=== PATIENT | female | born 1940 | race Caucasian/White ===

== ENCOUNTER 2025-01-24 01:53 | Inpatient (IN) | payer MEDICARE, MEDICAID, SELFPAY ==
[2025-01-24] VITALS (15 sets, daily range): BP systolic 89–156; BP diastolic 65–99; PULSE 60–185; RESP 16–96; TEMP 36.6–37; O2SAT 93–99; BMI 28.3
--- NOTE | 2025-01-24 01:59 | EKG_ITS ---
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
--- NOTE | 2025-01-24 02:19 | PD.EDCHEST ---
ED Chest Pain RME/HPI General Chief Complaint: Chest Pain Stated Complaint: CHEST PAIN Time Seen by Provider: 01/24/25 02:15 Arrival date/time: 01/24/25 01:53 RME / HPI RME / HPI narrative: This section includes all my notes and documentations, including HPI, PE, and ED course. Anmol Luis MD HPI: 84 y/o female with Hx of Recreational drug use, Hypercholesterolemia, Atrial Fibrillation, and Hypertension presents with several hours of chest pain and palpitations. Denies fever. No other complaints. ROS: All negative except as documented in HPI. Physical Exam: General: Alert and oriented. Appearance of malaise noted. Eyes: Conjunctivae and lids clear. ENT: No nasal congestion. Neck: Supple. Heart: Tachycardia noted (~200 bpm). Lungs: No respiratory distress. Mildly decreased air movement with rales. Abdomen: Soft and nontender. Normal bowel sounds. No distension. No rebound or guarding. Back: No CVA tenderness. Skin: Warm and dry. Neuro: Alert and oriented X 3. I reviewed all diagnostic test results: My interpretation of the EKG: SVT (184 bpm). My interpretation of the chest x-ray is infiltrates. Blood tests and urine tests remarkable for Cr 1.4, lactic acid 2.3, and BNP 231. Influenza: Negative. COVID: Negative. At this point, diagnoses include: SVT, PNA, Elevated lactic acid, and DIANA. With adenosine 6 mg, SVT converted to sinus rhythm. She also received metoprolol 25 mg and Rocephin and Zithromax. She felt much better. I discussed the case with our hospitalist.? About the presentation and exam and diagnostics and treatments here.? And need of further care in the hospital.? Will accept the patient. Anmol Luis MD Related Data Home Medications ?Medication ?Instructions ?Recorded ?Confirmed lisinopril 40 mg tablet 40 mg PO QDAY HBP #0 tabs 09/08/14 12/31/21 lovastatin 40 mg tablet 40 mg PO HS CHOLESTEROL #0 tabs 09/08/14 12/31/21 Previous Rx's ?Medication ?Instructions ?Recorded tobramycin 0.3 % eye drops 1 drp ophthalmic (eye) Q4H #5 mL 03/01/21 benzonatate 100 mg capsule 100 mg PO TID PRN cough #30 caps 04/24/21 (Ryanne Marshall) amlodipine 5 mg tablet 5 mg PO QDAY #30 tabs 01/01/22 Allergies Allergy/AdvReac Type Severity Reaction Status Date / Time No Known Allergies Allergy Verified 02/15/23 15:23 Review of Systems Review of Systems Systems Reviewed: All systems reviewed, normal except as documented Past Medical History Past Medical History NEUROLOGIC: Positive Neurological Disorders and Cerebrovascular Accident (10 yrs ago) CARDIAC: Positive Cardiac Disorders, Atrial Fibrillation, Hypercholesterolemia and Hypertension PSYCHO/SOCIAL: Positive Recreational Drug Use and Depression Family History FAMILY HISTORY: Positive Family Cardiac Disorders Surgical History SURGICAL: Positive Eye Surgery (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) ED Exam Narrative Physical exam: Refer to HPI Course Quality Measures none Orders Category Date Time Status Bedside Influenza A&B Antigen Test NOW Care 01/24/25 02:22 Completed COVID-19 Screening Questionnaire NOW Care 01/24/25 04:38 Active Decision to Admit X1 Care 01/24/25 04:38 Completed EKG (ED ONLY) *Do not use* NOW Care 01/24/25 01:59 Completed Ashby [Urinary Catheter] QS Care 01/24/25 02:43 Active Insert IV NOW Care 01/24/25 02:18 Active EKG (ED Only) Stat Exams 01/24/25 01:59 Draft XR chest 1V portable Stat Exams 01/24/25 02:22 Completed ABG [Arterial Blood Gas] Stat Lab 01/24/25 04:51 Completed Alcohol, Blood Medical Stat Lab 01/24/25 02:25 Completed BNP [B-Type Natriuretic Peptide] Stat Lab 01/24/25 02:25 Completed Beta Hydroxybutyrate Stat Lab 01/24/25 02:25 Completed Bilirubin,Direct Stat Lab 01/24/25 02:25 Completed Blood Culture (Lab) Stat Lab 01/24/25 02:25 Received CBC Stat Lab 01/24/25 02:25 Completed CMP [Comprehensive Metabolic Panel] Stat Lab 01/24/25 02:25 Completed COVID-19 Antigen (In-House) Stat Lab 01/24/25 02:48 Completed CRP [C-Reactive Protein] Stat Lab 01/24/25 02:25 Completed D-Dimer Stat Lab 01/24/25 02:25 Completed Drug Screen,Urine Stat Lab 01/24/25 03:00 Completed ESR [Sed Rate (ESR)] Stat Lab 01/24/25 02:25 Completed Free T4 (Free Thyroxine) Stat Lab 01/24/25 02:25 Completed Lactate (Lactic Acid) Stat Lab 01/24/25 02:25 Completed Magnesium Stat Lab 01/24/25 02:25 Completed PT [Prothrombin Time with INR] Stat Lab 01/24/25 02:25 Completed PTT [Partial Thromboplastin Time] Stat Lab 01/24/25 02:25 Completed Procalcitonin Stat Lab 01/24/25 02:25 Completed TSH [Thyroid Stimulating Hormone] Stat Lab 01/24/25 02:25 Completed Troponin I Stat Lab 01/24/25 02:25 Completed UA, C/S IF [Urinalysis, C/S if Indicated] Stat Lab 01/24/25 03:00 Completed Adenosine 6mg Inj [Adenocard Inj] Med 01/24/25 02:17 Discontinued 12 mg IVP X1 ONE Adenosine 6mg Inj [Adenocard Inj] Med 01/24/25 02:09 Discontinued 18 mg .ROUTE .STK-MED ONE Adenosine 6mg Inj [Adenocard Inj] Med 01/24/25 02:16 Discontinued 6 mg IVP X1 ONE Azithromycin Inj [Zithromax Inj] 500 mg Med 01/24/25 04:18 Discontinued Sodium Chloride 0.9% 250 ml [Ns] 250 ml IV X1 Metoprolol Tartrate [Lopressor] Med 01/24/25 03:11 Discontinued 25 mg PO X1 ONE Sodium Chloride 0.9% 1000 ml [Ns] 1,000 ml Med 01/24/25 02:19 Discontinued IV 999 mls/hr cefTRIAXone [Rocephin] Med 01/24/25 04:27 Discontinued 1,000 mg .ROUTE .STK-MED ONE cefTRIAXone/D5w 1gm IV premix [Rocephin/D5w 1gm IV Med 01/24/25 04:18 Discontinued premix] 1 g in 50 ml IV X1 Vital Signs Vital signs: Vital Signs Temperature 98.6 F 01/24/25 02:15 Pulse Rate 185 H 01/24/25 02:15 Respiratory Rate 19 01/24/25 02:15 Blood Pressure 89/65 L 01/24/25 02:15 Pulse Oximetry (%) 95 01/24/25 02:15 Oxygen Delivery Method Room Air 01/24/25 02:15 Chest Pain MDM Narrative MDM Narrative:: Scribe Attestation: I, Paty Baltazar, am scribing for and in the presence of Dr. Luis. Provider Notation: Although this document has been carefully reviewed, there may still be some phonetic and other typographical errors.? These errors are purely grammatical due to imperfections in the software program and should not be construed in any way to? compromise the substance of the patient's medical care during this visit. 84 y/o female with Hx of Recreational drug use, Hypercholesterolemia and Hypertension presents with several hours of chest pain and palpitations. Denies fever. No other complaints. Patient data External records reviewed:: [facility] previous records (Reviewed prior ED records from 06/16/23. [place] Atrial [place].) Clinical information provided by:: patient Social determinants that could affect healthcare access:: substance use Patient has the following chronic illnesses:: Cerebrovascular Accident, Hypercholesterolemia, Hypertension, Recreational Drug Use and Depression How is presenting disease/condition affected by chronic disease/condition?: exacerbated by Evaluation data The following diagnostics were reviewed and interpreted by me:: EKG tracing(s) (My interpretation of the EKG: SVT (184 bpm) with no ST-T changes. Anmol Luis MD) Lab and/or radiology exams considered but not ordered:: None Interpretation Summary: I reviewed all diagnostic test results: My interpretation of the EKG: SVT (184 bpm). My interpretation of the chest x-ray is infiltrates. Blood tests and urine tests remarkable for Cr 1.4, lactic acid 2.3, and BNP 231. Influenza: Negative. COVID: Negative. Medications / Prescriptions Medications or Prescriptions considered but not ordered:: None Medication administrations:: Medication Administration History Hydrocodone Bitart/Acetaminophen (Hydrocodone/Apap 5/325 Tablet) 1 tab PO Q4HR PRN PRN Reason: PAIN SCALE 4-6 (Moderate Stop: 01/29/25 04:49 Last Admin: 01/24/25 08:04 Dose: 1 tab Documented By: VL Albuterol/Ipratropium (Albuterol/Ipratropium (Duoneb) Rt Mariely 3 Ml Nebu) 3 ml INH Q6HRRT PRN PRN Reason: SOB or wheezing Stop: 02/23/25 06:59 Aspirin (Aspirin Ec 81 Mg Tabec) 81 mg PO QDAY [facility] Stop: 02/23/25 11:44 Last Admin: 01/24/25 13:50 Dose: 81 mg Documented By: MARGOT(2) Atorvastatin Calcium (Atorvastatin Calcium 20 Mg Tablet) 40 mg PO HS [facility] Stop: 02/23/25 20:59 Heparin Sodium (Porcine) (Heparin Sod Inj 5000 Unit/Ml Vial) 5,000 unit SC Q8HR [facility] Stop: 02/07/25 05:59 Last Admin: 01/24/25 13:50 Dose: 5,000 unit Documented By: VL(2) Co-signed By: MARIAELENA Admin: 01/24/25 06:04 Dose: 5,000 unit Documented By: JAVI Co-signed By: MARY Sodium Chloride (Ns) 1,000 mls @ 85 mls/hr IV .[id number] [facility] Stop: 02/23/25 04:59 Last Admin: 01/24/25 18:19 Dose: 85 mls/hr Documented By: MARGOT(2) Infusion: 01/24/25 17:45 Dose: Infused Documented By: VL(2) Admin: 01/24/25 05:59 Dose: 85 mls/hr Documented By: JAVI Ceftriaxone Sodium/Dextrose (Rocephin/D5w 1gm Iv Premix) 1 gm in 50 mls @ 100 mls/hr IV QDAY [facility] Stop: 02/01/25 08:59 Metoprolol Succinate (Metoprolol Succinate Xl 25 Mg Tabcr) 12.5 mg PO QDAY [facility] Stop: 02/23/25 11:29 Last Admin: 01/24/25 13:51 Dose: 12.5 mg Documented By: MARGOT(2) Ondansetron HCl (Ondansetron Inj 2 Mg/Ml Inj 2 Ml) 4 mg IVP Q6H PRN; Protocol PRN Reason: NAUSEA OR VOMITING Stop: 02/23/25 04:49 Pantoprazole Sodium (Pantoprazole 40 Mg Tablet) 40 mg PO QDAY [facility] Stop: 02/24/25 08:59 Discontinued Medications Adenosine (Adenosine Inj 3 Mg/Ml Vial) 6 mg IVP X1 ONE Stop: 01/24/25 02:17 Last Admin: 01/24/25 02:26 Dose: 6 mg Documented By: MARY Adenosine (Adenosine Inj 3 Mg/Ml Vial) 12 mg IVP X1 ONE Stop: 01/24/25 02:18 Last Admin: 01/24/25 03:17 Dose: Not Given Documented By: BD Non-Admin Reason: Cancelled by Provider Adenosine (Adenosine Inj 3 Mg/Ml Vial) Confirm Administered Dose 18 mg .ROUTE .STK-MED ONE Stop: 01/24/25 02:10 Last Admin: 01/24/25 02:21 Dose: Not Given Documented By: AC Non-Admin Reason: Override Medication Atorvastatin Calcium (Atorvastatin Calcium 20 Mg Tablet) 40 mg PO X1 ONE Stop: 01/24/25 11:35 Last Admin: 01/24/25 13:50 Dose: 40 mg Documented By: VL(2) Azithromycin (Azithromycin 250 Mg Tablet) 500 mg PO QDAY [facility] Stop: 02/01/25 08:59 Ceftriaxone Sodium (Ceftriaxone Sod Inj 1,000 Mg Vial) Confirm Administered Dose 1,000 mg .ROUTE .STK-MED ONE Stop: 01/24/25 04:28 Last Admin: 01/24/25 04:40 Dose: 1,000 mg Documented By: BD Sodium Chloride (Ns) 1,000 mls @ 999 mls/hr IV .Q1H1M ONE Stop: 01/24/25 03:19 Last Infusion: 01/24/25 03:53 Dose: Infused Documented By: Admin: 01/24/25 02:26 Dose: 999 mls/hr Documented By: MARY Azithromycin 500 mg/ Sodium (Chloride) 250 mls @ 250 mls/hr IV X1 ONE Stop: 01/24/25 05:17 Last Infusion: 01/24/25 05:57 Dose: Infused Documented By: Admin: 01/24/25 04:44 Dose: 250 mls/hr Documented By: BD Ceftriaxone Sodium/Dextrose (Rocephin/D5w 1gm Iv Premix) 1 g in 50 mls @ 100 mls/hr IV X1 ONE Stop: 01/24/25 04:47 Last Admin: 01/24/25 04:45 Dose: Not Given Documented By: BD Non-Admin Reason: Other, see note Magnesium Sulfate (Magnesium Sulfate Ivpb) 4 gm in 50 mls @ 12.5 mls/hr IV X1 ONE Stop: 01/24/25 11:51 Last Admin: 01/24/25 08:19 Dose: 12.5 mls/hr Documented By: VL Metoprolol Tartrate (Metoprolol Tartrate 25 Mg Tablet) 25 mg PO X1 ONE Stop: 01/24/25 03:12 Last Admin: 01/24/25 03:21 Dose: 25 mg Documented By: JAVI Potassium Chloride (Potassium Chloride 20 Meq Tabcr) 40 meq PO X1 ONE Stop: 01/24/25 07:53 Last Admin: 01/24/25 08:19 Dose: 40 meq Documented By: MARGOT Sodium Chloride (Sodium Chloride Rt 10% 15 Ml Nebu) 5 ml INH X1 ONE Stop: 01/24/25 04:51 Last Admin: 01/24/25 13:31 Dose: Not Given Documented By: MARGOT(2) Non-Admin Reason: Not scanned/given in ED With adenosine 6 mg, SVT converted to sinus rhythm. She also received metoprolol 25 mg and Rocephin and Zithromax. Consultations Consultation(s) initiated? (list below): Yes Consultation #1 (Physician, Specialty, Details): I discussed the case with our hospitalist.? About the presentation and exam and diagnostics and treatments here.? And need of further care in the hospital.? Will accept the patient. Diagnosis Chest Pain Differential Diagnosis: stable angina, unstable angina pectoris, atypical chest pain, st elevation myocardial infarction, costochondritis, chest pain, biliary colic and other (SVT, IN) Most likely diagnosis given after review of the tests above:: PNA, SVT, Elevated lactic acid, and DIANA. Admission Indicated Admission indicated?: indicated Explain why admission is indicated or not indicated:: PNA, SVT Admission Request Was there a request for admission?: Yes Admission Attestation Admission request attestation: Discussed case with Hospitalist service regarding admission. Discussed patients ED course, exam findings, labs, and radiology results. The Hospitalist [agrees] to accept the patient for admission. Disposition Plan Disposition Plan: Admit Critical Care Time Critical Care Time Critical Care Time: Yes Total Critical Care Time (min.): 36 Attestation: Due to a high probability of clinically significant, life threatening deterioration, the patient required my highest level of preparedness to intervene emergently and I personally spent this critical care time directly and personally managing the patient. This critical care time included obtaining a history; examining the patient; ordering and review of studies; arranging urgent treatment with development of a management plan; evaluation of patient's response to treatment; frequent reassessment; and discussions with family and other providers. It was exclusive of separately billable procedures and treating other patients and teaching time. Anmol Luis MD Discharge Plan Plan Patient Disposition: Admit Acute Care w/in Hospital Problem List Clinical Impression: SVT (supraventricular tachycardia), Pneumonia, Elevated lactic acid level, DIANA (acute kidney injury)
--- NOTE | 2025-01-24 02:22 | XR_ITS ---
Examination: AP chest single view TECHNIQUE: AP portable semiupright chest single view Date and time: January 24, 2025, 0259 hours Comparison April 23, 2021 INDICATIONS: Shortness of breath chest pain beginning today. FINDINGS: Nodule in the right upper lobe again noted Normal heart size. No unremarkable pneumonia or pulmonary edema IMPRESSION: No interval pneumonia or pulmonary edema
[2025-01-24] MEDS: ADENOSINE INJ 3 MG/ML VIAL 6 MG IVP (02:26)
[2025-01-24] MEDS: SODIUM CHLORIDE 0.9% 1000 ML 1,000 ML 999 ML IV (02:26)
[2025-01-24 02:56] LABS: Lactate (Lactic Acid) 2.3 mMol/L (0.4-2.0)
[2025-01-24 03:15] LABS: Basophils % (Auto) 0 % (0-2.5); Eosinophils # (Auto) 0.2 Thou/mm3 (0.0-0.5); Eosinophils % (Auto) 1 % (0-10); Hematocrit 36.6 % (36.0-46.0); Hemoglobin 12.7 g/dL (12.0-16.0); Immature Granulocytes % (Auto) 0 % (0-0); Immature Granulocytes Auto 0.05 Thou/mm3 (0.00-0.00); Lymphocytes # (Auto) 4.6 Thou/mm3 (1.0-4.8); Lymphocytes % (Auto) 30 % (10-50); Mean Corpuscular HGB Conc 34.7 g/dl (31.0-37.0); Mean Corpuscular Hemoglobin 29.3 pg (25.0-35.0); Mean Corpuscular Volume 84 fL (80-100); Monocytes % (Auto) 7 % (0-12); Neutrophils # (Auto) 9.3 Thou/mm3 (1.8-7.7); Neutrophils % (Auto) 61 % (37-80); Nucleated Red Blood Cell % 0 /100 WBC (0); Platelet Count 203 Thou/mm3 (140-440); RDW Standard Deviation 46.1 fL (36.4-46.3); Red Blood Count 4.34 Miln/mm3 (4.00-5.20); White Blood Count 15.2 Thou/mm3 (3.6-11.0)
[2025-01-24] MEDS: METOPROLOL TARTRATE 25 MG TABLET PO (03:21)
[2025-01-24 03:22] LABS: INR 1.1 (0.9-1.3); Partial Thromboplastin Time 27.9 Seconds (22.0-36.0); Prothrombin Time 11.6 Seconds (9.0-12.2)
[2025-01-24 03:24] LABS: B-Type Natriuretic Peptide 231 pg/mL (0-100)
[2025-01-24 03:25] LABS: COVID-19 Antigen (In-House) Negative (Negative)
[2025-01-24 03:36] LABS: Alanine Aminotransferase 16 U/L (10-49); Albumin, Serum 4.4 gm/dL (3.4-4.8); Albumin/Globulin Ratio 1.9 (1.2-2.2); Alcohol, Blood Medical < 3.0 mg/dL (0-10.0); Alkaline Phosphatase 114 U/L (46-116); Anion Gap 13 (7-16); Aspartate Amino Transferase 17 U/L (0-34); BUN/Creatinine Ratio 13 Ratio (12-20); Bilirubin,Direct 0.2 mg/dL (0.0-0.3); Bilirubin,Total 0.7 mg/dL (0.3-1.2); Blood Urea Nitrogen 18 mg/dL (9-23); C-Reactive Protein 2.7 mg/dL (0.0-0.9); Calcium 9.1 mg/dL (8.3-10.6); Calcium (Corrected) 9.1 mg/dL (8.5-10.1); Carbon Dioxide 20.9 mMol/L (20.0-31.0); Chloride 109 mMol/L (98-107); Creatinine (Component) 1.4 mg/dL (0.6-1.3); Estimated Creatinine Clearance 30.7 mL/min (>60); Free T4 (Free Thyroxine) 0.98 ng/dL (0.89-1.76); Globulin 2.3 gm/dL (2.3-3.5); Glucose 183 mg/dL (74-106); Magnesium 1.7 mg/dL (1.6-2.6); Osmolality,Calculated 291 (275-295); Potassium 3.7 mMol/L (3.4-5.1); Procalcitonin 0.13 ng/ml (0.0-0.49); Sed Rate (ESR) 29 mm/hr (0-30); Sodium 143 mMol/L (136-145); Thyroid Stimulating Hormone 4.63 uIU/mL (0.55-4.78); Total Protein 6.7 gm/dL (5.7-8.2); Troponin I 0.029 ng/mL (0.0-0.045); eGFR 37 See Note
[2025-01-24 03:45] LABS: Beta Hydroxybutyrate 0.5 mmol/L (<0.6)
[2025-01-24 03:56] LABS: D-Dimer 529 ng/mL (<600)
--- NOTE | 2025-01-24 04:29 | PC.NURSE ---
CALLED HOUSE SUP PATRICE GARCIA
[2025-01-24] MEDS: cefTRIAXone SOD INJ 1,000 MG VIAL 1000 MG (04:40)
[2025-01-24] MEDS: AZITHROMYCIN INJ 500 MG in SODIUM CHLORIDE 0.9% 250 ML 250 ML 250 MG IV (04:44)
--- NOTE | 2025-01-24 04:46 | PC.NURSE ---
PREMIX BAG ROCEPHIN NOT AVAILABLE HOUSE SUP GAVE VIAL ROCEPHIN TO MIX AND ADMIN VIA IV
--- NOTE | 2025-01-24 04:50 | EKG_ITS ---
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
--- NOTE | 2025-01-24 04:56 | ESHP_ITS ---
<Statement entered by Brown Meyer MD - 01/24/25 07:08> I Brown Meyer MD reviewed the note and agree with the resident's assessment & plan with exceptions as below. I have personally reviewed labs, imaging, home meds/prior records, examined the patient, formulated and discussed management plan with the IM team. An 84-year-old female with history of HTN presented to ED with palpitations and intermittent chest pain was found to have HR in 180s on presentation. EKG consistent with SVT s/p adenosine with conversion back to normal sinus rhythm. Will start on low-dose beta-blockers metoprolol 25 mg twice daily, obtain echocardiogram, and optimize management of community-acquired pneumonia. Patient also noted to have lactic acidosis with elevated inflammatory markers along with CXR consistent with infiltrates possibly due to community-acquired pneumonia. Will treat empirically with Rocephin and azithromycin. Also noted to have DIANA we will provide gentle IVF resuscitation. Documentation for date of: 01/24/25 HPI History of Present Illness Chief complaint: chest pain and palpitation History of present illness: 84-year-old female with past medical history of hyperlipidemia hypertension was admitted to the hospital on 01/24/2025 after coming to the ED with complaints of chest pain and palpitations. On assessment patient stated that she had chest pain and palpitations that started on the day prior to admission around 5 PM and she decided to come to the the ED. In the ED patient got adenosine 6 mg x 1 and then adenosine 12 mg x 1 due to having SVT and patient converted to sinus rhythm afterwards. Patient mentions she does not have any history of heart failure or prior episodes of AK or any arrhythmias. Patient stated that she has not had any chills, fevers, burning sensation urination, nausea, vomiting, or abdominal pain recently and she has not been within any sick contacts. She did mention that she has a cough, but otherwise no other complaints at this time. Patient stated that she feels well now. Chest x-ray showed pneumonia and patient does have a WBC count as well as a UTI with lactic acidosis and elevated CRP. ED course: Initially came in hypotensive and tachycardic, but afebrile. Initial labs were relevant for leukocytosis, DIANA, elevated CRP and BMP, lactic acidosis. Initial imaging included chest x-ray which is pending read, but does seem like patient does have some opacifications in the right lower lobe and left lower lobe. PMH: As above Social Hx: Denies any smoking, alcohol and drugs Surgical Hx: Breast implants Allergies: NKDA Medications: Patient does not remember his medications, pending medication reconciliation. 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 Anicteric, vision grossly intact. R eye absent Ears: No ear pain, no ear discharge, Hearing grossly intact. Nose: No nasal discharge. Mouth/Throat: Dry mucous membranes, no redness, no lesions. Neck: Neck supple, non-tender, no cervical lymphadenopathy. Lungs: Clear BRIJESH upper and mildly decreased in lower lobes, No accessory muscle use. Cardio: Normal S1/S2, regular rhythm, no murmurs, no JVD Abdomen: Soft, non-tender, no palpable masses, peristalsis present, no guarding or rebound. Extremities: Symmetrical, no significant deformities, no peripheral edema , non-tender, peripheral pulses presents. Skin: No rashes, no lesions, warm to touch. Neuro: No focal neurological deficits. motor and sensory intact Psych: Cooperative, appropriate mood and effect. Results: Labs 01/24/25 05:35 01/24/25 02:25 Labs: Short CBC 01/24/25 Range/Units 02:25 WBC 15.2 H (3.6-11.0) Thou/mm3 Hgb 12.7 (12.0-16.0) g/dL Hct 36.6 (36.0-46.0) % Plt Count 203 (140-440) Thou/mm3 BMP 01/24/25 02:25 Sodium 143 Potassium 3.7 Chloride 109 H Carbon Dioxide 20.9 BUN 18 Creatinine 1.4 H Glucose 183 H Calcium 9.1 Cardiac Enzymes 01/24/25 Range/Units 02:25 Troponin I 0.029 (0.0-0.045) ng/mL Liver Function 01/24/25 Range/Units 02:25 Total Bilirubin 0.7 (0.3-1.2) mg/dL Direct Bilirubin 0.2 (0.0-0.3) mg/dL AST 17 (0-34) U/L ALT 16 (10-49) U/L Alkaline Phosphatase 114 (46-116) U/L Albumin 4.4 (3.4-4.8) gm/dL Quality Measures Quality Measures none Advance care planning discussed with:: patient Medications Home Medications and Allergies Home Medications ?Medication ?Instructions ?Recorded ?Confirmed ?Type lisinopril 40 mg tablet 40 mg PO QDAY HBP #0 tabs 12/31/21 History lovastatin 40 mg tablet 40 mg PO HS CHOLESTEROL #0 t abs 09/08/14 12/31/21 History Allergies Allergy/AdvReac Type Severity Reaction Status Date / Time No Known Allergies Allergy Verified 02/15/23 15:23 Visit Medications Hydrocodone Bitart/Acetaminophen (Hydrocodone/Apap 5/325 Tablet) 1 tab PO Q4HR PRN PRN Reason: PAIN SCALE 4-6 (Moderate Stop: 01/29/25 04:49 Albuterol/Ipratropium (Albuterol/Ipratropium (Duoneb) Rt Mariely 3 Ml Nebu) 3 ml INH Q6HRRT PRN PRN Reason: SOB or wheezing Stop: 02/23/25 06:59 Azithromycin (Azithromycin 250 Mg Tablet) 500 mg PO QDAY PIERRE Stop: 02/01/25 08:59 Heparin Sodium (Porcine) (Heparin Sod Inj 5000 Unit/Ml Vial) 5,000 unit SC Q8HR PIERRE Stop: 02/07/25 05:59 Azithromycin 500 mg/ Sodium (Chloride) 250 mls @ 250 mls/hr IV X1 ONE Stop: 01/24/25 05:17 Last Admin: 01/24/25 04:44 Dose: 250 mls/hr Sodium Chloride (Ns) 1,000 mls @ 85 mls/hr IV .[id number] PIERRE Stop: 02/23/25 04:59 Ceftriaxone Sodium/Dextrose (Rocephin/D5w 1gm Iv Premix) 1 gm in 50 mls @ 100 mls/hr IV QDAY PIERRE Stop: 02/01/25 08:59 Ondansetron HCl (Ondansetron Inj 2 Mg/Ml Inj 2 Ml) 4 mg IVP Q6H PRN; Protocol PRN Reason: NAUSEA OR VOMITING Stop: 02/23/25 04:49 Discontinued Medications Adenosine (Adenosine Inj 3 Mg/Ml Vial) 6 mg IVP X1 ONE Stop: 01/24/25 02:17 Last Admin: 01/24/25 02:26 Dose: 6 mg Adenosine (Adenosine Inj 3 Mg/Ml Vial) 12 mg IVP X1 ONE Stop: 01/24/25 02:18 Last Admin: 01/24/25 03:17 Dose: Not Given Sodium Chloride (Ns) 1,000 mls @ 999 mls/hr IV .Q1H1M ONE Stop: 01/24/25 03:19 Last Infusion: 01/24/25 03:53 Dose: Infused Ceftriaxone Sodium/Dextrose (Rocephin/D5w 1gm Iv Premix) 1 g in 50 mls @ 100 mls/hr IV X1 ONE Stop: 01/24/25 04:47 Last Admin: 01/24/25 04:45 Dose: Not Given Metoprolol Tartrate (Metoprolol Tartrate 25 Mg Tablet) 25 mg PO X1 ONE Stop: 01/24/25 03:12 Last Admin: 01/24/25 03:21 Dose: 25 mg Sodium Chloride (Sodium Chloride Rt 10% 15 Ml Nebu) 5 ml INH X1 ONE Stop: 01/24/25 04:51 Assessment & Plan Plan 84-year-old female with past medical history of hyperlipidemia hypertension was admitted to the hospital on 01/24/2025 for SVT, DIANA, and possible community- acquired pneumonia. #SVT Patient came in due to complaints of chest pain and palpitations Was found to have SVT on EKG when arrived to the ED Patient was given adenosine 6 mg x 1 and adenosine 12 mg x 1 and converted back to sinus rhythm. Plan: Ordered repeat troponins Ordered repeat EKG Order echo Consider cardiology consult if patient develops SVT again #Community-acquired pneumonia? Patient has been having a cough and was found to have WBC elevation on x-ray there seems to be some opacifications even though we are pending official read. CRP 2.7 Plan: Azithromycin and Rocephin Sputum cultures and blood cultures ordered O2 as needed #DIANA #Lactic acidosis Patient came to creatinine of 1.4 and baseline is around 1 Lactic acid was 2.3 on arrival Plan: IV fluids Avoid nephrotoxic agents Renally dose medications Trend lactic acid Disposition: Patient admitted to telemetry for SVT and DIANA Diet: NPO GI prophylaxis: not indicated DVT prophylaxis: heparin subcu Code: Full Case disclosed with Attending Dr. Mitch Meeks PGY1 Disclaimer: Even though this this note was dictated by speech recognition and even though it was carefully revised there may still be minor errors in tenter due to voice recognition software.
[2025-01-24 05:01] LABS: Base Excess -2 (-3-3); HCO3 22 mEq/L (20-26); Inspired Oxygen, FIO2 21 %; O2 Saturation 95 % (91-98); PCO2 36 mmHg (32.0-48.0); PO2 68 mmHg (83-108)
[2025-01-24 05:02] LABS: Allen Test Performed/OK; Puncture Site Right Radial
[2025-01-24 05:32] LABS: Collection Type, Urine Clean Catch
[2025-01-24 05:36] LABS: Bilirubin,Urine Negative (Negative); Blood,Urine Negative (Negative); Clarity,Urine Clear (Clear/Hazy); Color,Urine Lt-Yellow (Lt Yel-Yel); Culture Indicated,Urine Not Indicated; Glucose, Urine Negative (Negative); Hyaline Casts,Urine < 1 /hpf (0-1); Ketones,Urine Negative (Negative); Leukocyte Esterase,Urine Negative (Negative); Nitrite,Urine Negative (Negative); Protein,Urine 1+ (Neg - Trace); RBC,Urine 2 /hpf (0-3); Specific Gravity,Urine 1.013 (1.001-1.035); Squamous Epithelial Cell,Urine 4 /hpf (0-5); Urobilinogen,Urine Negative mg/dL (0.0-1.0); WBC,Urine 1 /hpf (0-5)
[2025-01-24 05:44] LABS: Basophils % (Auto) 0 % (0-2.5); Eosinophils % (Auto) 0 % (0-10); Hematocrit 32.2 % (36.0-46.0); Hemoglobin 11.3 g/dL (12.0-16.0); Immature Granulocytes % (Auto) 0 % (0-0); Immature Granulocytes Auto 0.02 Thou/mm3 (0.00-0.00); Lymphocytes # (Auto) 1.8 Thou/mm3 (1.0-4.8); Lymphocytes % (Auto) 19 % (10-50); Mean Corpuscular HGB Conc 35.1 g/dl (31.0-37.0); Mean Corpuscular Hemoglobin 29.7 pg (25.0-35.0); Mean Corpuscular Volume 85 fL (80-100); Monocytes # (Auto) 0.5 Thou/mm3 (0.0-0.8); Monocytes % (Auto) 6 % (0-12); Neutrophils # (Auto) 6.9 Thou/mm3 (1.8-7.7); Neutrophils % (Auto) 74 % (37-80); Nucleated Red Blood Cell % 0 /100 WBC (0); Platelet Count 147 Thou/mm3 (140-440); RDW Standard Deviation 46.4 fL (36.4-46.3); White Blood Count 9.3 Thou/mm3 (3.6-11.0)
[2025-01-24 05:45] LABS: Amphetamine/Methamp Scrn,U Negative (Negative); Barbiturate Screen,Urine Negative (Negative); Benzodiazepines Screen,Urine Negative (Negative); Benzoylecgonine Screen, Ur Negative (Negative); Fentanyl Screen,Urine Negative (Negative); Opiate Screen,Urine Negative (Negative); THC Screen,Urine Negative (Negative)
[2025-01-24 05:53] LABS: Reflex Lactate? Y
[2025-01-24] MEDS: SODIUM CHLORIDE 0.9% 1000 ML 1,000 ML 85 ML IV ×2 (05:59→18:19)
[2025-01-24] MEDS: HEPARIN SOD INJ 5000 UNIT/ML VIAL SC ×3 (06:04→21:28)
[2025-01-24 06:09] LABS: Glucose Estimated Average 111 mg/dL (80-131); Hemoglobin A1C 5.5 % Hgb (4.8-6.0)
[2025-01-24 06:26] LABS: Alanine Aminotransferase 12 U/L (10-49); Albumin, Serum 3.8 gm/dL (3.4-4.8); Albumin/Globulin Ratio 1.7 (1.2-2.2); Alkaline Phosphatase 92 U/L (46-116); Anion Gap 11 (7-16); Aspartate Amino Transferase 14 U/L (0-34); BUN/Creatinine Ratio 13 Ratio (12-20); Bilirubin,Total 0.5 mg/dL (0.3-1.2); Blood Urea Nitrogen 16 mg/dL (9-23); Calcium 8.4 mg/dL (8.3-10.6); Calcium (Corrected) 8.6 mg/dL (8.5-10.1); Carbon Dioxide 23.1 mMol/L (20.0-31.0); Cardiac Risk Estimate 4.5 RATIO (3.7-5.6); Chloride 112 mMol/L (98-107); Cholesterol 135 mg/dL (132-200); Creatinine (Component) 1.2 mg/dL (0.6-1.3); Estimated Creatinine Clearance 35.8 mL/min (>60); Globulin 2.3 gm/dL (2.3-3.5); Glucose 125 mg/dL (74-106); HDL Cholesterol 30 mg/dL (40-60); LDL Cholesterol,Calculated 83 mg/dL (0-130); Magnesium 1.7 mg/dL (1.6-2.6); Osmolality,Calculated 292 (275-295); Potassium 3.6 mMol/L (3.4-5.1); Sodium 146 mMol/L (136-145); Thyroid Stimulating Hormone 2.76 uIU/mL (0.55-4.78); Total Protein 6.1 gm/dL (5.7-8.2); Triglycerides 111 mg/dL (30-150); eGFR 45 See Note
[2025-01-24 06:39] LABS: Troponin I 0.112 ng/mL (0.0-0.045)
[2025-01-24 07:30] LABS: Lactate (Lactic Acid) 1.5 mMol/L (0.4-2.0)
[2025-01-24] MEDS: HYDROcodone/APAP 5/325 TABLET 1 TAB PO (08:04)
[2025-01-24] MEDS: Magnesium Sulfate 4 GM Ivpb 4 GM/50 ML BAG IV (08:19)
[2025-01-24] MEDS: POTASSIUM CHLORIDE 20 mEq TABCR 40 MEQ PO (08:19)
--- NOTE | 2025-01-24 08:26 | PC.NURSE ---
Verified with Resident Tony Magnesium and Potassium order. Per Resident give magnesium and potassium since patient came in with SVT. Resident has ordered cardiac diet for patient. Patient alert and oriented X4. Patient vital signs stable. Patient swallowed PO medication okay.
--- NOTE | 2025-01-24 09:54 | PC.NURSE ---
Report called to REJI Cruz. No further questions.
[2025-01-24 11:25] LABS: Troponin I 0.239 ng/mL (0.0-0.045)
--- NOTE | 2025-01-24 13:30 | PD.RESCONSUL ---
HPI Data of Consult Requesting Physician: Brown Meyer MD Admitting Provider: Brown Meyer MD Attending Provider: Brown Meyer MD Primary Care Provider: Sam Wilson MD Consult Narrative History of present illness: Patient is a 84-year-old female with a past medical history of hyperlipidemia, hypertension, and history of methamphetamine use disorder. Patient presented to the emergency room with a chief complaint of chest pain. Patient stated chest pain began on 01/23/2025 and has been intermittent all day. Patient stated pain began at sternal region and came on suddenly. Patient denied radiation. Patient stated she felt her chest was pounding but no skipped beats. Initially came in hypotensive (89/65) and tachycardic, but afebrile. Initial labs were relevant for leukocytosis, DIANA, elevated CRP and BMP, lactic acidosis. Initial imaging included chest x-ray which is pending read, but does seem like patient does have some opacifications in the right lower lobe and left lower lobe. PMH Hyperlipidemia Hypertension Osteoarthritis, of right knee Medications Lisinopril 40 mg daily, recently refilled 01/13/2025 Amlodipine 5 mg daily, recently refilled 12/18/2024 Lovastatin 40 mg at bedtime recently refilled on 11/14/2024 Mechlin zine 12.5 mg p.o. Sertraline at 100 mg daily Levothyroxine 25 mcg Plavix 75 mg daily Past surgical history Arthroplasty Past Family History Unsure Alleriges None cc:: cc: Brown Meyer MD Exam Vital Signs Temp Pulse Resp BP Pulse Ox O2 Del Method 97.8 F 64 20 117/71 93 L Room Air 01/24/25 12:00 01/24/25 12:01/24/25 12:00 01/24/25 12:00 01/24/25 12:01/24/25 12:00 Narrative Exam General Appearance: Alert & Oriented X3, well-nourished female who is lying in bed in no acute distress HEENT: Skull symmetrical and atraumatic. Conjunctivae pin and moist. Pupils equal, round, reactive to light and accommodation (PERRL). External ear without lesion or discharge. Straight, nares patient, mucosa pink, no discharge. Cardio: Normal Rate and Rhythm with S1 and S2 heart sounds. No murmurs or extra heart sounds auscultated. No bruits on carotid auscultation. No peripheral edema or cyanosis. Lungs: Symmetric with good expansion. Chest and back non-tender. Breath sounds vesicular without crackles, wheezing or rhonchi Abdomen: Non-tender, Non-distended, Normal Reactive Bowel Sounds Neuro: Alert, cooperative, oriented to person, place, and time. Speech clear. CN grossly intact. Upper motor strength 5/5 and Lower motor strength 5/5. Sensation intact. Results Labs 01/24/25 05:35 01/24/25 05:35 Labs: Short CBC 01/24/25 01/24/25 Range/Units 02:25 05:35 WBC 15.2 H 9.3 D (3.6-11.0) Thou/mm3 Hgb 12.7 11.3 L (12.0-16.0) g/dL Hct 36.6 32.2 L (36.0-46.0) % Plt Count 203 147 D (140-440) Thou/mm3 BMP 01/24/25 01/24/25 02:25 05:35 Sodium 143 146 H Potassium 3.7 3.6 Chloride 109 H 112 H Carbon Dioxide 20.9 23.1 BUN 18 16 Creatinine 1.4 H 1.2 Glucose 183 H 125 H D Calcium 9.1 8.4 Cardiac Enzymes 01/24/25 01/24/25 01/24/25 Range/Units 02:25 05:35 10:55 Troponin I 0.029 0.112 H* 0.239 H* (0.0-0.045) ng/mL Liver Function 01/24/25 01/24/25 Range/Units 02:25 05:35 Total Bilirubin 0.7 0.5 (0.3-1.2) mg/dL Direct Bilirubin 0.2 (0.0-0.3) mg/dL AST 17 14 (0-34) U/L ALT 16 12 (10-49) U/L Alkaline Phosphatase 114 92 D (46-116) U/L Albumin 4.4 3.8 D (3.4-4.8) gm/dL Urine 01/24/25 Range/Units 03:00 Urine Color Lt-Yellow (Lt Yel-Yel) Urine Clarity Clear (Clear/Hazy) Urine pH 7.0 (5.0-7.0) Ur Specific Roberta 1.013 (1.001-1.035) Urine Protein 1+ A (Neg - Trace) Urine Glucose (UA) Negative (Negative) ABG Interpretation ABG results: 01/24/25 04:51 ABG pH 7.40 ABG pCO2 36 ABG pO2 68 L ABG HCO3 22 ABG O2 Saturation 95 ABG Base Excess -2 Quality Measures Quality Measures none Advance care planning discussed with:: patient Medications Home Medications and Allergies Home Medications ?Medication ?Instructions ?Recorded ?Confirmed ?Type lisinopril 40 mg tablet 40 mg PO QDAY HBP #0 tabs 09/08/14 12/31/21 History lovastatin 40 mg tablet 40 mg PO HS CHOLESTEROL #0 tabs 09/08/14 12/31/21 History Allergies Allergy/AdvReac Type Severity Reaction Status Date / Time No Known Allergies Allergy Verified 02/15/23 15:23 Visit Medications Hydrocodone Bitart/Acetaminophen (Hydrocodone/Apap 5/325 Tablet) 1 tab PO Q4HR PRN PRN Reason: PAIN SCALE 4-6 (Moderate Stop: 01/29/25 04:49 Last Admin: 01/24/25 08:04 Dose: 1 tab Albuterol/Ipratropium (Albuterol/Ipratropium (Duoneb) Rt Mariely 3 Ml Nebu) 3 ml INH Q6HRRT PRN PRN Reason: SOB or wheezing Stop: 02/23/25 06:59 Aspirin (Aspirin Ec 81 Mg Tabec) 81 mg PO QDAY PIERER Stop: 02/23/25 11:44 Atorvastatin Calcium (Atorvastatin Calcium 20 Mg Tablet) 40 mg PO HS PIERRE Stop: 02/23/25 20:59 Heparin Sodium (Porcine) (Heparin Sod Inj 5000 Unit/Ml Vial) 5,000 unit SC Q8HR PIERRE Stop: 02/07/25 05:59 Last Admin: 01/24/25 06:04 Dose: 5,000 unit Sodium Chloride (Ns) 1,000 mls @ 85 mls/hr IV .[id number] PIERRE Stop: 02/23/25 04:59 Last Admin: 01/24/25 05:59 Dose: 85 mls/hr Ceftriaxone Sodium/Dextrose (Rocephin/D5w 1gm Iv Premix) 1 gm in 50 mls @ 100 mls/hr IV QDAY [facility] Stop: 02/01/25 08:59 Metoprolol Succinate (Metoprolol Succinate Xl 25 Mg Tabcr) 12.5 mg PO QDAY [facility] Stop: 02/23/25 11:29 Ondansetron HCl (Ondansetron Inj 2 Mg/Ml Inj 2 Ml) 4 mg IVP Q6H PRN; Protocol PRN Reason: NAUSEA OR VOMITING Stop: 02/23/25 04:49 Discontinued Medications Adenosine (Adenosine Inj 3 Mg/Ml Vial) 6 mg IVP X1 ONE Stop: 01/24/25 02:17 Last Admin: 01/24/25 02:26 Dose: 6 mg Adenosine (Adenosine Inj 3 Mg/Ml Vial) 12 mg IVP X1 ONE Stop: 01/24/25 02:18 Last Admin: 01/24/25 03:17 Dose: Not Given Atorvastatin Calcium (Atorvastatin Calcium 20 Mg Tablet) 40 mg PO X1 ONE Stop: 01/24/25 11:35 Azithromycin (Azithromycin 250 Mg Tablet) 500 mg PO QDAY [facility] Stop: 02/01/25 08:59 Sodium Chloride (Ns) 1,000 mls @ 999 mls/hr IV .Q1H1M ONE Stop: 01/24/25 03:19 Last Infusion: 01/24/25 03:53 Dose: Infused Azithromycin 500 mg/ Sodium (Chloride) 250 mls @ 250 mls/hr IV X1 ONE Stop: 01/24/25 05:17 Last Infusion: 01/24/25 05:57 Dose: Infused Ceftriaxone Sodium/Dextrose (Rocephin/D5w 1gm Iv Premix) 1 g in 50 mls @ 100 mls/hr IV X1 ONE Stop: 01/24/25 04:47 Last Admin: 01/24/25 04:45 Dose: Not Given Magnesium Sulfate (Magnesium Sulfate Ivpb) 4 gm in 50 mls @ 12.5 mls/hr IV X1 ONE Stop: 01/24/25 11:51 Last Admin: 01/24/25 08:19 Dose: 12.5 mls/hr Metoprolol Tartrate (Metoprolol Tartrate 25 Mg Tablet) 25 mg PO X1 ONE Stop: 01/24/25 03:12 Last Admin: 01/24/25 03:21 Dose: 25 mg Potassium Chloride (Potassium Chloride 20 Meq Tabcr) 40 meq PO X1 ONE Stop: 01/24/25 07:53 Last Admin: 01/24/25 08:19 Dose: 40 meq Sodium Chloride (Sodium Chloride Rt 10% 15 Ml Nebu) 5 ml INH X1 ONE Stop: 01/24/25 04:51 Assessment & Plan Plan Patient is a 84-year-old female with a past medical history of hyperlipidemia, hypertension, and history of methamphetamine use disorder patient was admitted for SVT. Cardiology following. #SVT SVT likely secondary to age versus DIANA versus less likely other cardiac abnormalities, pending echo. TSH within normalits. Tropnin and BNP likely increased secondary to cardiac stress. TSH 2.76 A1c 5.5 Troponin 0.029,, 0.112, 0.239 C-reactive protein 2.7, BNP 231 Plan - Recommend metoprolol succinate 25 mg daily - Continue aspirin 81 mg daily - Continue atorvastatin 40 mg daily - Pending echo - Potassium greater than 4 and magnesium greater than 2 #Hyperlipidemia Past medical history of hyperlipidemia, patient home medication of lovastatin 40 mg at bedtime Lipid panel (01/24/2025): Triglycerides 111, cholesterol 135, LDL 83 HDL 30 ASCVD score: Not applicable given age, continue atorvastatin nonetheless Plan -Continue atorvastatin 40 p.o. at bedtime #DIANA #Mild hyponatremia DIANA noted on admission likely prerenal given baseline of 1. BUN/creatinine ratio of 13. Continue to monitor for signs of intrinsic renal injury versus CKD given previous renal ultrasound from December 29, 2021 showing small kidneys with bilateral renal cortical thinning and moderate bilateral renal parenchymal scars. Plan -Strict ins and outs -Continue to hold lisinopril, until DIANA improvement - Avoid nephrotoxins -Renal dose medication - Encourage oral hydration and NS maintenance fluid at 85 mL/h consider deseeding after first bag #Hypertension Patient possible home medication of lisinopril 40 mg once daily and amlodipine 5 mg once daily, patient a poor historian Plan - Recommending patient start metoprolol 25 XL daily - Home medication on hold, hold lisinopril given DIANA #Leukocytosis Leukocytosis likely reactive in the setting of SVT. Chest x-ray unremarkable no fevers or chills overnight versus less likely UTI as UA negative. C-reactive protein 2.7 Plan - Ceftriaxone 01/25/2025 -Blood cultures pending - Consider D/C, after blood cultures #Microcytic anemia, less likely Drop in hemoglobin hematocrit since admission, likely dilutional effect as patient received fluids in the ER Plan - Continue to monitor hemoglobin hematocrit #History substance use disorder, methamphetamine use Denied any recent methamphetamine use, U tox negative. Plan -Continue to monitor Health Maintenance: Disp: Pt is currently admitted to floors for further management of SVT, penirene echo FEN: CArdiac DVT: on subQ heparin q8HR Code: Full Code - The patient's plan was discussed with attending Dr. Lisa Galloway MD PGY1 Internal Medicine Attending Provider Attestation/Addendum I have personally seen and examined the patient separately on the above date of service and discussed the plan of care with the resident. I reviewed the resident Dr. Cheyanne Galloway consultation progress note and agree with the resident findings and plan in the note above and have also edited the documentation to reflect my findings and plan. 84-year-old female with a past medical history of patient hypertension, hyperlipidemia, chronic dizziness on meclizine, hypothyroidism, history of stroke 15 years ago on Plavix, anxiety/depression, history of methamphetamine use disorders quit 6 years ago in 2018 and presented to the emergency department for further evaluation of chest pain as well as some palpitations. Patient complained of pounding of her chest associated with pressure in her chest sensation which is mostly on the left side of the chest and denied any kind of radiation. Denied any kind of diaphoresis nausea or vomiting but felt her heart was racing and she came to the emergency department for further evaluation. In the emergency department initial EKG showed SVT at [address]-T changes in relation to the SVT. Labs showed WBC 9.3, hemoglobin 11.3 and platelets 147, sodium was 146 and chloride is 112 potassium 3.6. BUN 16 creatinine 1.2 A1c 5.5%, lactate 1.5, magnesium was only 1.7, LFTs normal troponin was mildly elevated at 0.112 and peaked at 0.239 and downtrending at 0.162. C-reactive protein was elevated at 2.7. BNP was 231 HDL 30 LDL 81, total cholesterol 135 TG 111. Free T40.98 TSH 2.76 procalcitonin negative. UA negative along with the U tox. Cardiology consulted for further evaluation of SVT Assessment and plan 1. SVT 2. Acute kidney injury 3. Electrolyte abnormalities including hypokalemia and hypomagnesemia, mild hyponatremia at 146, 4. Elevated troponins-NSTEMI type II mostly secondary to supply/demand mismatch 4. Essential hypertension 5. Hyperlipidemia 6. Chronic dizziness on meclizine 7. Hypothyroidism on levothyroxine 8. CVA 15 years ago on Plavix 9. Anxiety and depression 10. History of methamphetamine use and last use in 2018 11. History of bilateral breast implants with possible leakage of one of the implants 12. 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 Patient was found to have SVT at 184 bpm and converted to normal sinus rhythm with adenosine. Trigger for the SVT appears to be dehydration along with mild acute kidney injury and electrolyte abnormalities. Patient has not seen any corrections cadet and denies any kind of cardiac disease. One of the previous EKG was read as atrial fibrillation which appears to be sinus rhythm with PACs. Chest pain was completely atypical and only associated with SVT and no denies any kind of chest pain or chest pressure. Recommend to start the patient on metoprolol XL 25 mg once daily and continue to uptitrate it metoprolol XL 50 mg once daily based on the blood pressure. Lisinopril on hold and need the blood pressure room for the SVT. Can start low-dose lisinopril 2.5 mg later on the blood pressure is high. Keep potassium greater than 4 and magnesium greater than 2.0 at all times. IV fluids to help with the mild hyponatremia. As well as DIANA. Continue telemetry monitoring. Patient will need Holter monitoring as outpatient for further evaluation of any arrhythmias apart from the SVT Echocardiogram to evaluate LV function RV function, diastolic function and any regional wall motion abnormalities. Troponin elevation of 0.16 and 0.2 and now downtrending. Mostly NSTEMI type II with supply/demand mismatch in the setting of SVT Aspirin statin and beta-eliseo A1c TSH and lipid profile have been checked and normal as noted above. Unclear etiology of the elevated CRP and primary to continue workup. History of substance abuse disorder with methamphetamine use previously and patient has quit it completely in 2018 and U tox negative now. Patient consulted to not take the same. Management of rest of the medical conditions as per primary team and other consultants. Thank you for the consult and allowing me to participate in the care of the patient. Cardiology will continue to follow. Dov Gonzalez M.D. Interventional Cardiology
--- NOTE | 2025-01-24 13:35 | PD.RESPRO ---
Documentation for date of: 01/24/25 Subjective Subjective Interval history: Patient is seen and examined at bedside Admitted overnight in view of chest pain and later diagnosed with SVT in the ED for which she was given adenosine, later SVT resolved Vitals are stable. Patient denies further episodes of chest pain, but endorsed that she is having mild sciatic pain Labs are significant for Hb 11.3, sodium 146, chloride 112, potassium 3.6, magnesium 1.7 Patient is repleted with 40 mill equivalents of oral potassium and 4 g of magnesium sulfate Started on aspirin, atorvastatin and consulted applications administrator, Dr. Gonzalez will appreciate his recommendations Exam Vital Signs Temp Pulse Resp BP Pulse Ox O2 Del Method 97.8 F 64 20 117/71 93 L Room Air 01/24/25 12:00 01/24/25 12:00 01/24/25 12:00 01/24/25 12:00 01/24/25 12:00 01/24/25 12:00 Narrative Exam General: Awake. HEENT: Normocephalic, atraumatic, mucous membranes moist. rt eye s/p enucleation Heart: Regular rate and rhythm, no murmurs. Lungs: Clear to auscultation with no wheezing or crackles. Abdomen: Soft, nondistended, nontender, positive bowel sounds. ?No guarding or rebound tenderness. Neurologic: Alert and oriented x3, no gross neurological deficit, and patient able to move all 4 extremities. Extremities: No edema. Skin: No rash or ecchymoses. Objective Labs 01/25/25 06:38 01/25/25 06:38 Labs: Laboratory Results - last 24 hr 01/24/25 01/24/25 01/24/25 02:25 02:48 03:00 WBC 15.2 H RBC 4.34 Hgb 12.7 Hct 36.6 MCV 84 MCH 29.3 MCHC 34.7 RDW Std Deviation 46.1 Plt Count 203 Neut % (Auto) 61 Lymph % (Auto) 30 [place] % (Auto) 7 Eos % (Auto) 1 Baso % (Auto) 0 Neut # (Auto) 9.3 H Lymph # (Auto) 4.6 [place] # (Auto) 1.0 H Eos # (Auto) 0.2 Baso # (Auto) 0.0 Immature Gran # (Auto) 0.05 H Absolute Nucleated RBC 0.00 Immature Gran % 0 Nucleated RBC % 0 ESR 29 PT 11.6 INR 1.1 APTT 27.9 D-Dimer 529 Puncture Site ABG pH ABG pCO2 ABG pO2 ABG HCO3 ABG O2 Saturation ABG Base Excess FiO2 Sodium 143 Potassium 3.7 Chloride 109 H Carbon Dioxide 20.9 Anion Gap 13 BUN 18 Creatinine 1.4 H Estim Creat Clear Calc 30.7 L eGFR 37 L BUN/Creatinine Ratio 13 [address]ucose [address] Glu mg/dL Hemoglobin A1c Calculated Osmolality 291 Lactic Acid 2.3 H Calcium 9.1 Corrected Calcium 9.1 Magnesium 1.7 Total Bilirubin 0.7 Direct Bilirubin 0.2 AST 17 ALT 16 Alkaline Phosphatase 114 Troponin I 0.029 C-Reactive Prot, Quant 2.7 H B-Natriuretic Peptide 231 H Total Protein 6.7 Albumin 4.4 Globulin 2.3 Albumin/Globulin Ratio 1.9 Triglycerides Cholesterol LDL Cholesterol, Calc HDL Cholesterol Cholesterol/HDL Ratio Beta-Hydroxybutyrate/Acetoacetate 0.5 Procalcitonin 0.13 TSH 4.63 Free T4 0.98 Ur Collection Type Clean Catch Urine Color Lt-Yellow Urine Clarity Clear Urine pH 7.0 Ur Specific [place] 1.013 Urine Protein 1+ A Urine Glucose (UA) Negative Urine Ketones Negative Urine Blood Negative Urine Nitrite Negative Urine Bilirubin Negative Urine Urobilinogen (Auto) Negative Ur Leukocyte Esterase Negative Urine RBC 2 Urine WBC 1 Ur Squamous Epith Cells 4 Urine Bacteria None Hyaline Casts < 1 Ur Culture Indicated? Not Indicated Urine Opiates Screen Negative Urine Fentanyl Screen Negative Ur Barbiturates Screen Negative U Amphetamin/Meth Scrn Negative U Benzodiazepines Scrn Negative U Cocaine Metab Screen Negative U Marijuana (THC) Screen Negative Ethyl Alcohol < 3.0 SARS-CoV-2 Ag (Rapid) Negative 01/24/25 01/24/25 01/24/25 04:51 05:35 07:10 WBC 9.3 D RBC 3.80 L Hgb 11.3 L Hct 32.2 L MCV 85 MCH 29.7 MCHC 35.1 RDW Std Deviation 46.4 H Plt Count 147 D Neut % (Auto) 74 Lymph % (Auto) 19 [place] % (Auto) 6 Eos % (Auto) 0 Baso % (Auto) 0 Neut # (Auto) 6.9 Lymph # (Auto) 1.8 [place] # (Auto) 0.5 Eos # (Auto) 0.0 Baso # (Auto) 0.0 Immature Gran # (Auto) 0.02 H Absolute Nucleated RBC 0.00 Immature Gran % 0 Nucleated RBC % 0 ESR PT INR APTT D-Dimer Puncture Site Right Radial ABG pH 7.40 ABG pCO2 36 ABG pO2 68 L ABG HCO3 22 ABG O2 Saturation 95 ABG Base Excess -2 FiO2 21 Sodium 146 H Potassium 3.6 Chloride 112 H Carbon Dioxide 23.1 Anion Gap 11 BUN 16 Creatinine 1.2 Estim Creat Clear Calc 35.8 L eGFR 45 L BUN/Creatinine Ratio 13 Glucose [address] Glu mg/dL 111 Hemoglobin A1c 5.5 Calculated Osmolality 292 Lactic Acid 1.5 Calcium 8.4 Corrected Calcium 8.6 Magnesium 1.7 Total Bilirubin 0.5 Direct Bilirubin AST 14 ALT 12 Alkaline Phosphatase 92 D Troponin I 0.112 H* C-Reactive Prot, Quant B-Natriuretic Peptide Total Protein 6.1 Albumin 3.8 D Globulin 2.3 Albumin/Globulin Ratio 1.7 Triglycerides 111 Cholesterol 135 LDL Cholesterol, Calc 83 HDL Cholesterol 30 L Cholesterol/HDL Ratio 4.5 Beta-Hydroxybutyrate/Acetoacetate Procalcitonin TSH 2.76 Free T4 Ur Collection Type Urine Color Urine Clarity Urine pH Ur Specific [place] Urine Protein Urine Glucose (UA) Urine Ketones Urine Blood Urine Nitrite Urine Bilirubin Urine Urobilinogen (Auto) Ur Leukocyte Esterase Urine RBC Urine WBC Ur Squamous Epith Cells Urine Bacteria Hyaline Casts Ur Culture Indicated? Urine Opiates Screen Urine Fentanyl Screen Ur Barbiturates Screen U Amphetamin/Meth Scrn U Benzodiazepines Scrn U Cocaine Metab Screen U Marijuana (THC) Screen Ethyl Alcohol SARS-CoV-2 Ag (Rapid) 01/24/25 10:55 WBC RBC Hgb Hct MCV MCH MCHC RDW Std Deviation Plt Count Neut % (Auto) Lymph % (Auto) [place] % (Auto) Eos % (Auto) Baso % (Auto) Neut # (Auto) Lymph # (Auto) [place] # (Auto) Eos # (Auto) Baso # (Auto) Immature Gran # (Auto) Absolute Nucleated RBC Immature Gran % Nucleated RBC % ESR PT INR APTT D-Dimer Puncture Site ABG pH ABG pCO2 ABG pO2 ABG HCO3 ABG O2 Saturation ABG Base Excess FiO2 Sodium Potassium Chloride Carbon Dioxide Anion Gap BUN Creatinine Estim Creat Clear Calc eGFR BUN/Creatinine Ratio Glucose Estimated Ave Glu mg/dL Hemoglobin A1c Calculated Osmolality Lactic Acid Calcium Corrected Calcium Magnesium Total Bilirubin Direct Bilirubin AST ALT Alkaline Phosphatase Troponin I 0.239 H* C-Reactive Prot, Quant B-Natriuretic Peptide Total Protein Albumin Globulin Albumin/Globulin Ratio Triglycerides Cholesterol LDL Cholesterol, Calc HDL Cholesterol Cholesterol/HDL Ratio Beta-Hydroxybutyrate/Acetoacetate Procalcitonin TSH Free T4 Ur Collection Type Urine Color Urine Clarity Urine pH Ur Specific [place] Urine Protein Urine Glucose (UA) Urine Ketones Urine Blood Urine Nitrite Urine Bilirubin Urine Urobilinogen (Auto) Ur Leukocyte Esterase Urine RBC Urine WBC Ur Squamous Epith Cells Urine Bacteria Hyaline Casts Ur Culture Indicated? Urine Opiates Screen Urine Fentanyl Screen Ur Barbiturates Screen U Amphetamin/Meth Scrn U Benzodiazepines Scrn U Cocaine Metab Screen U Marijuana (THC) Screen Ethyl Alcohol SARS-CoV-2 Ag (Rapid) ABG Interpretation ABG results: 01/24/25 04:51 ABG pH 7.40 ABG pCO2 36 ABG pO2 68 L ABG HCO3 22 ABG O2 Saturation 95 ABG Base Excess -2 Quality Measures Quality Measures none Advance care planning discussed with:: patient Assessment & Plan Assessment Current Active Medications: Generic Name Dose Route Start Last Admin Trade Name Freq PRN Reason Stop Dose Admin Hydrocodone Bitart/Acetaminophen 1 tab 01/24/25 04:50 01/24/25 08:04 Hydrocodone/Apap 5/325 Tablet PO 01/29/25 04:49 1 tab Q4HR PRN Administration PAIN SCALE 4-6 (Moderate Albuterol/Ipratropium 3 ml 01/24/25 04:50 Albuterol/Ipratropium (Duoneb) Rt Mariely 3 Ml Nebu INH 02/23/25 06:59 Q6HRRT PRN SOB or wheezing Aspirin 81 mg 01/24/25 11:45 Aspirin Ec 81 Mg Tabec PO 02/23/25 11:44 QDAY PIERRE Atorvastatin Calcium 40 mg 01/24/25 21:00 Atorvastatin Calcium 20 Mg Tablet PO 02/23/25 20:59 HS PIERRE Heparin Sodium (Porcine) 5,000 unit 01/24/25 06:00 01/24/25 06:04 Heparin Sod Inj 5000 Unit/Ml Vial SC 02/07/25 05:59 5,000 unit Q8HR PIERRE Administration Sodium Chloride 1,000 mls @ 85 mls/hr 01/24/25 05:00 01/24/25 05:59 Ns IV 02/23/25 04:59 85 mls/hr .[id number] PIERRE Administration Ceftriaxone Sodium/Dextrose 1 gm in 50 mls @ 100 mls/hr 01/25/25 09:00 Rocephin/D5w 1gm Iv Premix IV 02/01/25 08:59 QDAY PIERRE Metoprolol Succinate 12.5 mg 01/24/25 11:30 Metoprolol Succinate Xl 25 Mg Tabcr PO 02/23/25 11:29 QDAY PIERRE Ondansetron HCl 4 mg 01/24/25 04:50 Ondansetron Inj 2 Mg/Ml Inj 2 Ml IVP 02/23/25 04:49 Q6H PRN NAUSEA OR VOMITING Protocol Plan 84-year-old female with past medical history of hyperlipidemia hypertension was admitted to the hospital on 01/24/2025 for SVT, DIANA, and possible community-acquired pneumonia. #SVT, resolved - Normal sinus rhythm #Hyper troponinemia Patient came in due to complaints of chest pain and palpitations Was found to have SVT on EKG when arrived to the ED Patient was given adenosine 6 mg x 1 and adenosine 12 mg x 1 and converted back to sinus rhythm. A1c, TSH is within normal limits, lipid panel is within normal limits Ordered echo Plan: Started on metoprolol 12.5 Mg once daily Director Of Optimization, Dr. Gonzalez is consulted and will appreciate his recommendations Troponin at the time of admission is 0.029, later up trended to 0.112 >> 0.239 Repeat EKG ordered at 11:56 AM showed normal sinus rhythm without any ST and T wave changes Started on ceftriaxone in view of suspected underlying respiratory tract infection #DIANA vs CKD #Lactic acidosis, Resolved Patient came to creatinine of 1.4 and baseline is around 1.3 Lactic acid was 2.3 on arrival, later downtrended to 1.5 Plan: Avoid nephrotoxic agents Renally dose medications # History of hypertension - Patient does not remember the name of the medications - Will start antihypertensives based on her blood pressure Disposition: Patient admitted to telemetry for SVT and DIANA Diet: Cardiac diet GI prophylaxis: Prophylaxis DVT prophylaxis: heparin subcu Code: Full Patient plan of care was discussed with the attending physician, Dr. Jaciel Jimenez, PGY1 Attending Provider Attestation/Addendum I, Monica Grissom DO, attest that I was physically present for the strange portions of the service and evaluated the patient with the resident and I reviewed and discussed the case with the resident and agree with the resident's findings and plans of care as documented above Patient seen eval this a.m. She states that she is feeling well. She states that she had chest pain yesterday when she was eating prompted her to come to the ED. Patient stated that she had some palpitations and denied any shortness of breath. Heart rate is now well-controlled. Will start patient on low-dose metoprolol. Troponins have been uptrending. Will consult cardiology for further recommendations. Will order echocardiogram to further evaluate for any structural abnormalities. Due to concern for possible pneumonia. Continue with IV antibiotics.
[2025-01-24] MEDS: ATORVASTATIN CALCIUM 20 MG TABLET 40 MG PO ×2 (13:50→21:28)
[2025-01-24] MEDS: ASPIRIN EC 81 MG TABEC PO (13:50)
[2025-01-24] MEDS: METOPROLOL SUCCINATE XL 25 MG TABCR 12.5 MG PO (13:51)
--- NOTE | 2025-01-24 16:38 | PC.NURSE ---
PT arrived to unit @1003am. Pt explains she resides with roommate/bump grader operator Jaquelin. Pt has no contact information for Jaquelin or granddaughter Shabnam. Pt states that Jaquelin bump grader operator stated she would come in front window cashier of 01/25/25. Unable to reconcile home medication at this time.
[2025-01-24 18:08] LABS: Troponin I 0.162 ng/mL (0.0-0.045)
[2025-01-25] VITALS (9 sets, daily range): BP systolic 118–168; BP diastolic 58–86; PULSE 51–74; RESP 16–92; TEMP 36.1–36.6; O2SAT 92–96; BMI 29.7
--- NOTE | 2025-01-25 04:55 | ECHO_ITS ---
Transthoracic Echo Report Ht (in): 65 Wt (lb): 178 Exam Location: Echo Lab Status: Inpatient Byproducts Supervisor: Meme Bergeron Indications: Procedure Performed: BP: 136 / 77 HR: 66 Technical Quality: Technically Difficult Due to Breast Augmentation MEASUREMENTS (Male / Female) Normal Values 2D ECHO LV Diastolic Diameter PLAX 3.9 cm 4.2 - 5.9 / 3.9 - 5.3 cm LV Systolic Diameter PLAX 2.0 cm IVS Diastolic Thickness 1.1 cm 0.6 - 1.0 / 0.6 - 0.9 cm LVPW Diastolic Thickness 1.2 cm 0.6 - 1.0 / 0.6 - 0.9 cm LV Relative Wall Thickness 0.6 LVOT Diameter 2.5 cm LA Volume Index 35.4 cm?/m? 16 - 28 cm?/m? DOPPLER AV Peak Velocity 112.0 cm/s AV Peak Gradient 5.0 mmHg LVOT Peak Velocity 85.4 cm/s LVOT Peak Gradient 2.9 mmHg AV Area Cont Eq pk 3.7 cm? MV Area PHT 5.0 cm? Mitral E Point Velocity 103.0 cm/s Mitral A Point Velocity 53.8 cm/s Mitral E to A Ratio 1.9 LV E' Lateral Velocity 7.6 cm/s Mitral E to LV E' Lateral Ratio 13.5 LV E' Septal Velocity 6.4 cm/s Mitral E to LV E' Septal Ratio 16.0 TR Peak Velocity 242.0 cm/s TR Peak Gradient 23.4 mmHg PV Peak Velocity 65.2 cm/s PV Peak Gradient 1.7 mmHg FINDINGS Left Ventricle Normal left ventricular size and systolic function with no obvious regional wall motion abnormalities. Mild left ventricular hypertrophy.Normal left ventricular diastolic filling pattern for age. The ejection fraction is visually estimated at 65 %. Right Ventricle The right ventricle is normal in size and systolic function. The estimated right ventricular systolic pressure, 23 mmHg. RAP 10mmHg. Left Atrium The left atrium measures the upper limits of normal. Right Atrium The right atrium is normal by two-dimensional imaging, color flow and Doppler imaging with no structural abnormalities, no thrombus formation present. Atrial Septum The interatrial septum appears normal with no evidence of a shunt. Aorta The aorta is normal by two-dimensional, color flow and Doppler interrogation. Mitral Valve The mitral valve annulus is mildly calcified. There is trace mitral regurgitation. Aortic Valve The aortic valve is trileaflet and sclerotic. There is mild aortic regurgitation. Tricuspid Valve The tricuspid valve is normal by two-dimensional, color flow and Doppler interrogation. There is trace tricuspid regurgitation. Pulmonic Valve The pulmonic valve is not well visualized. There is trace pulmonic regurgitation. Vessels The pulmonary artery appears normal. The inferior vena cava pulmonary and hepatic veins appear normal. Pericardium The pericardium is normal by two-dimensional imaging. There is no significant pericardial effusion. CONCLUSIONS Indications: SVT Normal LV size and function. Mild LVH. Estimated EF 55-60%.Indeterminate diastolic function. RV Normalsize and function. RVSP 23mmHg. RAP 10mmHg. Mild MAC. Trace MR. Trace TR, PI. Mild AV Sclerosis without stenosis. Mild AI. No Pericardial Effusion. Dov Gonzalez (Electronically Signed) Final Date: 26 January 2025 10:18
[2025-01-25] MEDS: SODIUM CHLORIDE 0.9% 1000 ML 1,000 ML 85 ML IV ×2 (06:04→19:34)
[2025-01-25] MEDS: HEPARIN SOD INJ 5000 UNIT/ML VIAL SC ×3 (06:05→21:10)
[2025-01-25 07:08] LABS: Basophils % (Auto) 1 % (0-2.5); Eosinophils # (Auto) 0.2 Thou/mm3 (0.0-0.5); Eosinophils % (Auto) 3 % (0-10); Hematocrit 31.6 % (36.0-46.0); Hemoglobin 10.9 g/dL (12.0-16.0); Immature Granulocytes % (Auto) 0 % (0-0); Immature Granulocytes Auto 0.02 Thou/mm3 (0.00-0.00); Lymphocytes % (Auto) 34 % (10-50); Mean Corpuscular HGB Conc 34.5 g/dl (31.0-37.0); Mean Corpuscular Hemoglobin 29.3 pg (25.0-35.0); Mean Corpuscular Volume 85 fL (80-100); Monocytes # (Auto) 0.4 Thou/mm3 (0.0-0.8); Monocytes % (Auto) 7 % (0-12); Neutrophils # (Auto) 3.4 Thou/mm3 (1.8-7.7); Neutrophils % (Auto) 56 % (37-80); Nucleated Red Blood Cell % 0 /100 WBC (0); Platelet Count 153 Thou/mm3 (140-440); RDW Standard Deviation 45.8 fL (36.4-46.3); Red Blood Count 3.72 Miln/mm3 (4.00-5.20)
[2025-01-25 07:34] LABS: Alanine Aminotransferase 10 U/L (10-49); Albumin/Globulin Ratio 1.7 (1.2-2.2); Alkaline Phosphatase 101 U/L (46-116); Anion Gap 9 (7-16); Aspartate Amino Transferase 16 U/L (0-34); BUN/Creatinine Ratio 14 Ratio (12-20); Bilirubin,Total 0.6 mg/dL (0.3-1.2); Blood Urea Nitrogen 14 mg/dL (9-23); Calcium 8.7 mg/dL (8.3-10.6); Calcium (Corrected) 8.7 mg/dL (8.5-10.1); Carbon Dioxide 22.7 mMol/L (20.0-31.0); Chloride 110 mMol/L (98-107); Estimated Creatinine Clearance 44.1 mL/min (>60); Globulin 2.4 gm/dL (2.3-3.5); Glucose 95 mg/dL (74-106); Osmolality,Calculated 283 (275-295); Potassium 3.8 mMol/L (3.4-5.1); Sodium 142 mMol/L (136-145); Total Protein 6.4 gm/dL (5.7-8.2); eGFR 56 See Note
--- NOTE | 2025-01-25 07:42 | PD.RESPRO ---
Documentation for date of: 01/25/25 Exam Vital Signs Temp Pulse Resp BP Pulse Ox O2 Del Method 97.7 F 61 16 118/58 L 95 Room Air 01/25/25 04:00 01/25/25 04:00 01/25/25 04:00 01/25/25 04:00 01/25/25 04:00 01/25/25 04:00 Objective Labs 01/25/25 06:38 01/25/25 06:38 Labs: Laboratory Results - last 24 hr 01/24/25 01/24/25 01/25/25 10:55 17:01 06:38 WBC 6.0 RBC 3.72 L Hgb 10.9 L Hct 31.6 L MCV 85 MCH 29.3 MCHC 34.5 RDW Std Deviation 45.8 Plt Count 153 Neut % (Auto) 56 Lymph % (Auto) 34 [place] % (Auto) 7 Eos % (Auto) 3 Baso % (Auto) 1 Neut # (Auto) 3.4 Lymph # (Auto) 2.0 [place] # (Auto) 0.4 Eos # (Auto) 0.2 Baso # (Auto) 0.0 Immature Gran # (Auto) 0.02 H Absolute Nucleated RBC 0.00 Immature Gran % 0 Nucleated RBC % 0 Sodium 142 Potassium 3.8 Chloride 110 H Carbon Dioxide 22.7 Anion Gap 9 BUN 14 Creatinine 1.0 Estim Creat Clear Calc 44.1 L eGFR 56 L BUN/Creatinine Ratio 14 Glucose 95 Calculated Osmolality 283 Calcium 8.7 Corrected Calcium 8.7 Magnesium 2.0 Total Bilirubin 0.6 AST 16 ALT 10 Alkaline Phosphatase 101 Troponin I 0.239 H* 0.162 H* Total Protein 6.4 Albumin 4.0 Globulin 2.4 Albumin/Globulin Ratio 1.7 ABG Interpretation ABG results: 01/24/25 04:51 ABG pH 7.40 ABG pCO2 36 ABG pO2 68 L ABG HCO3 22 ABG O2 Saturation 95 ABG Base Excess -2 Quality Measures Quality Measures none Assessment & Plan Assessment Current Active Medications: Generic Name Dose Route Start Last Admin Trade Name Freq PRN Reason Stop Dose Admin Hydrocodone Bitart/Acetaminophen 1 tab 01/24/25 04:50 01/24/25 08:04 Hydrocodone/Apap 5/325 Tablet PO 01/29/25 04:49 1 tab Q4HR PRN Administration PAIN SCALE 4-6 (Moderate Albuterol/Ipratropium 3 ml 01/24/25 04:50 Albuterol/Ipratropium (Duoneb) Rt Mariely 3 Ml Nebu INH 02/23/25 06:59 Q6HRRT PRN SOB or wheezing Aspirin 81 mg 01/24/25 11:45 01/24/25 13:50 Aspirin Ec 81 Mg Tabec PO 02/23/25 11:44 81 mg QDAY PIERRE Administration Atorvastatin Calcium 40 mg 01/24/25 21:00 01/24/25 21:28 Atorvastatin Calcium 20 Mg Tablet PO 02/23/25 20:59 40 mg HS PIERRE Administration Heparin Sodium (Porcine) 5,000 unit 01/24/25 06:00 01/25/25 06:05 Heparin Sod Inj 5000 Unit/Ml Vial SC 02/07/25 05:59 5,000 unit Q8HR PIERRE Administration Sodium Chloride 1,000 mls @ 85 mls/hr 01/24/25 05:00 01/25/25 06:04 Ns IV 02/23/25 04:59 85 mls/hr .[id number] PIERRE Administration Ceftriaxone Sodium/Dextrose 1 gm in 50 mls @ 100 mls/hr 01/25/25 09:00 Rocephin/D5w 1gm Iv Premix IV 02/01/25 08:59 QDAY PIERRE Metoprolol Succinate 12.5 mg 01/24/25 11:30 01/24/25 13:51 Metoprolol Succinate Xl 25 Mg Tabcr PO 02/23/25 11:29 12.5 mg QDAY PIERRE Administration Ondansetron HCl 4 mg 01/24/25 04:50 Ondansetron Inj 2 Mg/Ml Inj 2 Ml IVP 02/23/25 04:49 Q6H PRN NAUSEA OR VOMITING Protocol Pantoprazole Sodium 40 mg 01/25/25 09:00 Pantoprazole 40 Mg Tablet PO 02/24/25 08:59 QDAY PIERRE
[2025-01-25] MEDS: cefTRIAXone/D5w 1gm IV premix 1 GM/50 ML BAG IV (08:31)
[2025-01-25] MEDS: METOPROLOL SUCCINATE XL 25 MG TABCR 12.5 MG PO (08:36)
[2025-01-25] MEDS: ASPIRIN EC 81 MG TABEC PO (08:36)
[2025-01-25] MEDS: PANTOPRAZOLE 40 MG TABLET PO (08:37)
--- NOTE | 2025-01-25 09:46 | PD.RESPRO ---
Documentation for date of: 01/25/25 Subjective Subjective Interval history: Patient is a 84-year-old female with a past medical history of hyperlipidemia, hypertension, and history of methamphetamine use disorder. Patient presented to the emergency room with a chief complaint of chest pain. Patient stated chest pain began on 01/23/2025 and has been intermittent all day. Patient stated pain began at sternal region and came on suddenly. Patient denied radiation. Patient stated she felt her chest was pounding but no skipped beats. 01/25/2025: No overnight events reported. Patient denied any cardiac complains. Denied chest pain, palpitations, or skipped beats. Eho pending. Patient is pending PT evlauation. Exam Vital Signs Temp Pulse Resp BP Pulse Ox O2 Del Method 97.1 F 74 21 H 158/86 H 92 L Room Air 01/25/25 08:00 01/25/25 08:36 01/25/25 08:20 01/25/25 08:36 01/25/25 08:20 01/25/25 08:00 Narrative Exam General Appearance: Alert & Oriented X3, well-nourished female who is lying in bed in no acute distress HEENT: Skull symmetrical and atraumatic. Conjunctivae pin and moist. Pupils equal, round, reactive to light and accommodation (PERRL). External ear without lesion or discharge. Straight, nares patient, mucosa pink, no discharge. Cardio: Normal Rate and Rhythm with S1 and S2 heart sounds. No murmurs or extra heart sounds auscultated. No bruits on carotid auscultation. No peripheral edema or cyanosis. Lungs: Symmetric with good expansion. Chest and back non-tender. Breath sounds vesicular without crackles, wheezing or rhonchi Abdomen: Non-tender, Non-distended, Normal Reactive Bowel Sounds Neuro: Alert, cooperative, oriented to person, place, and time. Speech clear. CN grossly intact. Upper motor strength 5/5 and Lower motor strength 5/5. Sensation intact. Objective Labs 01/26/25 06:08 01/26/25 06:08 Labs: Laboratory Results - last 24 hr 01/24/25 01/24/25 01/25/25 10:55 17:01 06:38 WBC 6.0 RBC 3.72 L Hgb 10.9 L Hct 31.6 L MCV 85 MCH 29.3 MCHC 34.5 RDW Std Deviation 45.8 Plt Count 153 Neut % (Auto) 56 Lymph % (Auto) 34 [place] % (Auto) 7 Eos % (Auto) 3 Baso % (Auto) 1 Neut # (Auto) 3.4 Lymph # (Auto) 2.0 [place] # (Auto) 0.4 Eos # (Auto) 0.2 Baso # (Auto) 0.0 Immature Gran # (Auto) 0.02 H Absolute Nucleated RBC 0.00 Immature Gran % 0 Nucleated RBC % 0 Sodium 142 Potassium 3.8 Chloride 110 H Carbon Dioxide 22.7 Anion Gap 9 BUN 14 Creatinine 1.0 Estim Creat Clear Calc 44.1 L eGFR 56 L BUN/Creatinine Ratio 14 Glucose 95 Calculated Osmolality 283 Calcium 8.7 Corrected Calcium 8.7 Magnesium 2.0 Total Bilirubin 0.6 AST 16 ALT 10 Alkaline Phosphatase 101 Troponin I 0.239 H* 0.162 H* Total Protein 6.4 Albumin 4.0 Globulin 2.4 Albumin/Globulin Ratio 1.7 ABG Interpretation ABG results: 01/24/25 04:51 ABG pH 7.40 ABG pCO2 36 ABG pO2 68 L ABG HCO3 22 ABG O2 Saturation 95 ABG Base Excess -2 Quality Measures Quality Measures none Advance care planning discussed with:: patient Assessment & Plan Assessment Current Active Medications: Generic Name Dose Route Start Last Admin Trade Name Freq PRN Reason Stop Dose Admin Hydrocodone Bitart/Acetaminophen 1 tab 01/24/25 04:50 01/24/25 08:04 Hydrocodone/Apap 5/325 Tablet PO 01/29/25 04:49 1 tab Q4HR PRN Administration PAIN SCALE 4-6 (Moderate Albuterol/Ipratropium 3 ml 01/24/25 04:50 Albuterol/Ipratropium (Duoneb) Rt Mariely 3 Ml Nebu INH 02/23/25 06:59 Q6HRRT PRN SOB or wheezing Aspirin 81 mg 01/24/25 11:45 01/25/25 08:36 Aspirin Ec 81 Mg Tabec PO 02/23/25 11:44 81 mg QDAY PIERRE Administration Atorvastatin Calcium 40 mg 01/24/25 21:00 01/24/25 21:28 Atorvastatin Calcium 20 Mg Tablet PO 02/23/25 20:59 40 mg HS PIERRE Administration Heparin Sodium (Porcine) 5,000 unit 01/24/25 06:00 01/25/25 06:05 Heparin Sod Inj 5000 Unit/Ml Vial SC 02/07/25 05:59 5,000 unit Q8HR PIERRE Administration Sodium Chloride 1,000 mls @ 85 mls/hr 01/24/25 05:00 01/25/25 06:04 Ns IV 02/23/25 04:59 85 mls/hr .[id number] PIERRE Administration Ceftriaxone Sodium/Dextrose 1 gm in 50 mls @ 100 mls/hr 01/25/25 09:00 01/25/25 08:31 Rocephin/D5w 1gm Iv Premix IV 02/01/25 08:59 100 mls/hr QDAY PIERRE Administration Metoprolol Succinate 12.5 mg 01/24/25 11:30 01/25/25 08:36 Metoprolol Succinate Xl 25 Mg Tabcr PO 02/23/25 11:29 12.5 mg QDAY PIERRE Administration Ondansetron HCl 4 mg 01/24/25 04:50 Ondansetron Inj 2 Mg/Ml Inj 2 Ml IVP 02/23/25 04:49 Q6H PRN NAUSEA OR VOMITING Protocol Pantoprazole Sodium 40 mg 01/25/25 09:00 01/25/25 08:37 Pantoprazole 40 Mg Tablet PO 02/24/25 08:59 40 mg QDAY PIERRE Administration Plan Patient is a 84-year-old female with a past medical history of hyperlipidemia, hypertension, and history of methamphetamine use disorder patient was admitted for SVT. Cardiology following. #SVT #NSTEMI Type II, likely demand ischemia SVT likely secondary to age versus DIANA versus less likely other cardiac abnormalities, pending echo. TSH within normalits. Tropnin and BNP likely increased secondary to cardiac stress, NSTEMI type II demand ischemia. TSH 2.76 A1c 5.5 Troponin 0.029,, 0.112, 0.239 C-reactive protein 2.7, BNP 231 Plan -Echo Pending - Metoprolol succinate 25 mg daily, monitor HR and BP, if tolerated increase to Metoprolol Succinate 50 mg qday - Aspirin 81 mg daily - Potassium greater than 4 and magnesium greater than 2 - Continue further workup for ischemia as outpatient with a stress test as patient also wants to go for surgery for leaking breast implants #Hyperlipidemia Past medical history of hyperlipidemia, patient home medication of lovastatin 40 mg at bedtime Lipid panel (01/24/2025): Triglycerides 111, cholesterol 135, LDL 83 HDL 30 ASCVD score: Not applicable given age, continue atorvastatin nonetheless Plan -Continue atorvastatin 40 p.o. at bedtime #DIANA #Mild hyponatremia DIANA noted on admission likely prerenal given baseline of 1. BUN/creatinine ratio of 13. Continue to monitor for signs of intrinsic renal injury versus CKD given previous renal ultrasound from December 29, 2021 showing small kidneys with bilateral renal cortical thinning and moderate bilateral renal parenchymal scars. (01/25/2025): BUN 14 Cr 1.0 and GFR 56 Plan -Strict ins and outs -Continue to hold lisinopril, until DIANA improvement - Avoid nephrotoxins -Renal dose medication -Encourage oral hydration and NS maintenance fluid at 85 mL/h consider deseeding after first bag #Hypertension Patient possible home medication of lisinopril 40 mg once daily and amlodipine 5 mg once daily, patient a poor historian Plan - Recommending patient start metoprolol 25 XL daily - Home medication on hold, hold lisinopril given DIANA #Leukocytosis, improving Leukocytosis likely reactive in the setting of SVT. Chest x-ray unremarkable no fevers or chills overnight versus less likely UTI as UA negative. C-reactive protein 2.7 Plan - Ceftriaxone 01/25/2025 -Blood cultures negative 24 hours - Consider D/C, after blood cultures #Microcytic anemia, less likely Drop in hemoglobin hematocrit since admission, likely dilutional effect as patient received fluids in the ER Plan - Continue to monitor hemoglobin hematocrit #History substance use disorder, methamphetamine use Denied any recent methamphetamine use, U tox negative. 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 Lisa Galloway MD PGY1 Internal Medicine Attending Provider Attestation/Addendum I have personally seen and examined the patient separately on the above date of service and discussed the plan of care with the resident. I reviewed the resident Dr. Cheyanne Galloway consultation progress note and agree with the resident findings and plan in the note above and have also edited the documentation to reflect my findings and plan. Dov Gonzalez M.D. Interventional Cardiology
--- NOTE | 2025-01-25 11:21 | ESPR_ITS ---
Documentation for date of: 01/25/25 Subjective Subjective Interval history: No significant overnight. Preliminary Bcx negative at 24 hrs, DIANA has resolved. Cardiologys recommended to increase Metoprolol xl to 25 mg and up-titrate to 50 mg if BP stable. Patient will need Holter monitor in outpatient setting. fire sprinkler service technician contacted, it will be completed today. Referral to social services specialist made as patient is homeless. Exam Vital Signs Temp Pulse Resp BP Pulse Ox O2 Del Method 97.1 F 74 21 H 158/86 H 92 L Room Air 01/25/25 08:00 01/25/25 08:36 01/25/25 08:20 01/25/25 08:36 01/25/25 08:20 01/25/25 08:00 Narrative Exam General: Awake. HEENT: Normocephalic, atraumatic, mucous membranes moist. rt eye s/p enucleation Heart: Regular rate and rhythm, no murmurs. Lungs: Clear to auscultation with no wheezing or crackles. Abdomen: Soft, nondistended, nontender, positive bowel sounds. ?No guarding or rebound tenderness. Neurologic: Alert and oriented x3, no gross neurological deficit, and patient able to move all 4 extremities. Extremities: No edema. Skin: No rash or ecchymoses. Objective Labs 01/26/25 06:08 01/26/25 06:08 Labs: Laboratory Results - last 24 hr 01/24/25 01/24/25 01/25/25 10:55 17:01 06:38 WBC 6.0 RBC 3.72 L Hgb 10.9 L Hct 31.6 L MCV 85 MCH 29.3 MCHC 34.5 RDW Std Deviation 45.8 Plt Count 153 Neut % (Auto) 56 Lymph % (Auto) 34 [place] % (Auto) 7 Eos % (Auto) 3 Baso % (Auto) 1 Neut # (Auto) 3.4 Lymph # (Auto) 2.0 [place] # (Auto) 0.4 Eos # (Auto) 0.2 Baso # (Auto) 0.0 Immature Gran # (Auto) 0.02 H Absolute Nucleated RBC 0.00 Immature Gran % 0 Nucleated RBC % 0 Sodium 142 Potassium 3.8 Chloride 110 H Carbon Dioxide 22.7 Anion Gap 9 BUN 14 Creatinine 1.0 Estim Creat Clear Calc 44.1 L eGFR 56 L BUN/Creatinine Ratio 14 Glucose 95 Calculated Osmolality 283 Calcium 8.7 Corrected Calcium 8.7 Magnesium 2.0 Total Bilirubin 0.6 AST 16 ALT 10 Alkaline Phosphatase 101 Troponin I 0.239 H* 0.162 H* Total Protein 6.4 Albumin 4.0 Globulin 2.4 Albumin/Globulin Ratio 1.7 ABG Interpretation ABG results: 01/24/25 04:51 ABG pH 7.40 ABG pCO2 36 ABG pO2 68 L ABG HCO3 22 ABG O2 Saturation 95 ABG Base Excess -2 Quality Measures Quality Measures none Advance care planning discussed with:: patient Assessment & Plan Assessment Current Active Medications: Generic Name Dose Route Start Last Admin Trade Name Freq PRN Reason Stop Dose Admin Hydrocodone Bitart/Acetaminophen 1 tab 01/24/25 04:50 01/24/25 08:04 Hydrocodone/Apap 5/325 Tablet PO 01/29/25 04:49 1 tab Q4HR PRN Administration PAIN SCALE 4-6 (Moderate Albuterol/Ipratropium 3 ml 01/24/25 04:50 Albuterol/Ipratropium (Duoneb) Rt Mariely 3 Ml Nebu INH 02/23/25 06:59 Q6HRRT PRN SOB or wheezing Aspirin 81 mg 01/24/25 11:45 01/25/25 08:36 Aspirin Ec 81 Mg Tabec PO 02/23/25 11:44 81 mg QDAY PIERRE Administration Atorvastatin Calcium 40 mg 01/24/25 21:00 01/24/25 21:28 Atorvastatin Calcium 20 Mg Tablet PO 02/23/25 20:59 40 mg HS PIERRE Administration Heparin Sodium (Porcine) 5,000 unit 01/24/25 06:00 01/25/25 06:05 Heparin Sod Inj 5000 Unit/Ml Vial SC 02/07/25 05:59 5,000 unit Q8HR PIERRE Administration Sodium Chloride 1,000 mls @ 85 mls/hr 01/24/25 05:00 01/25/25 06:04 Ns IV 02/23/25 04:59 85 mls/hr .[id number] PIERRE Administration Ceftriaxone Sodium/Dextrose 1 gm in 50 mls @ 100 mls/hr 01/25/25 09:00 01/25/25 08:31 Rocephin/D5w 1gm Iv Premix IV 02/01/25 08:59 100 mls/hr QDAY PIERRE Administration Metoprolol Succinate 12.5 mg 01/24/25 11:30 01/25/25 08:36 Metoprolol Succinate Xl 25 Mg Tabcr PO 02/23/25 11:29 12.5 mg QDAY PIERRE Administration Ondansetron HCl 4 mg 01/24/25 04:50 Ondansetron Inj 2 Mg/Ml Inj 2 Ml IVP 02/23/25 04:49 Q6H PRN NAUSEA OR VOMITING Protocol Pantoprazole Sodium 40 mg 01/25/25 09:00 01/25/25 08:37 Pantoprazole 40 Mg Tablet PO 02/24/25 08:59 40 mg QDAY PIERRE Administration Plan 84-year-old female with past medical history of hyperlipidemia hypertension was admitted to the hospital on 01/24/2025 for SVT, DIANA, and possible community- acquired pneumonia. #SVT, resolved - Normal sinus rhythm #Hyper troponinemia Patient came in due to complaints of chest pain and palpitations Was found to have SVT on EKG when arrived to the ED Patient was given adenosine 6 mg x 1 and adenosine 12 mg x 1 and converted back to sinus rhythm. A1c, TSH is within normal limits, lipid panel is within normal limits Cardiac echo pending Troponin downtrending Plan: Will increase metoprolol to 25 Mg once daily, starting 01/26/25, will titrate to 50 mg if BP tolerating Pattern Maker, Dr. Gonzalez is onboard, we appreciate his recommendations Continue with ceftriaxone in view of suspected underlying respiratory tract infection #DIANA vs CKD, Resolved #Lactic acidosis, Resolved Patient came to creatinine of 1.4 and baseline is around 1.3 Lactic acid was 2.3 on arrival, later downtrended to 1.5 Plan: Avoid nephrotoxic agents Renally dose medications # History of hypertension - Patient does not remember the name of the medications - Will start antihypertensives based on her blood pressure Disposition: Patient admitted to telemetry for SVT and DIANA Diet: Cardiac diet GI prophylaxis: Prophylaxis DVT prophylaxis: heparin subcu Code: Full This patient care was discussed with my attending Dr. Jaciel Valentino MD PGY-2 Disclaimer: Minor errors in warp knitting machine operator may be present since this note was dictated by speech recognition software. Attending Provider Attestation/Addendum Monica Crump DO, attest that I was physically present for the strange portions of the service and evaluated the patient with the resident and I reviewed and discussed the case with the resident and agree with the resident's findings and plans of care as documented above Patient seen and evaluated this AM. HR better controlled. Will increase metprolol 12.5 to 25mg po daily. Patient denies any further episodes of chest pain or shortness of breath. She appears euvolemic. Lungs are CTAB/l. Pending echocardiogram. Patient walks with walker and assistance to bathroom. May benefit from PT per RN. WIll have PT work with pt
--- NOTE | 2025-01-25 11:38 | PC.SS ---
SECURITY SUPERVISOR conducted bedside contact with the patient conduct initial assessment and to discuss discharge planning.? Patient confirmed demographic information.? Patient resides at home with friend, Jaquelin.? Patient receives social security benefits.? Patient utilizes a walker to assist with ambulation.? Patient does not utilize home oxygen.? Patient describes ability to complete ADL?s independently.? Patient?s surrogate medical decision maker is son, Terrell Cantrell; .? Patient?s PCP is Dr. Wilson.? Patient?s wood cutter is Dr. Colby. ?Patient utilizes [facility] pharmacy for medication services.? Patient does not participate with dialysis.? Patient reports no concerns at residence.? Patient confirms access to basic utilities and provisions.? Plan is for the patient to return home at the time of discharge.? human services program specialist will arrange transportation on behalf of the patient. ?No further discharge needs identified by the patient.? No further intervention required at this time, social media editor will be available to address any further concerns.? Next of Kin: Terrell Cantrell D/C Plan: Home
--- NOTE | 2025-01-25 11:45 | PC.SS ---
Update: Patient is pending Echo. Possible d/c home today.
--- NOTE | 2025-01-25 14:08 | PC.NURSE ---
Pt roommate, Jaquelin Tate came to drop off patient's home medication and is also listed as point of contact; Jaquelin Tate's phone number is [phone]. Jaquelin reports that she would like to consult social professionals for new living arrangements for the patient. She explains that patient is hard to manage and can be passive/aggressive at times and does not comply with with housing recommendations. She has been assisting patient with her medication administration as the patient is unable to manage. Jaquelin explains she herself is elderly and has medical problems she is seeking attention, requiring frequent doctors visits, physical therapy visits, and has a pending shoulder surgery and can no longer house the patient. Jaquelin is hoping the patient be placed in a SNF skilled nursing. Dr. Grissom made aware of roommate concerns and referral for SW in place.
--- NOTE | 2025-01-25 14:30 | PC.SS ---
Rounding Note: Echo is pending. PT evaluation is pending. Plan is to d/c tomorrow.
[2025-01-25] MEDS: HYDROcodone/APAP 5/325 TABLET 1 TAB PO (16:43)
--- NOTE | 2025-01-25 16:51 | PC.NURSE ---
Spoke to an Christo Cantrell stating he is grandson to patient and explains he lives in [place] and his sister Shubham Pulido (granddaughter to patient) lives in [place] and would be the most appropriate person to be POC as she is the closest family member. Jud agrees with Christo and now wants to re-assign Shubham as her POC. Shubham Pulido contact #: [phone]
[2025-01-25] MEDS: ATORVASTATIN CALCIUM 20 MG TABLET 40 MG PO (21:11)
[2025-01-26] VITALS (10 sets, daily range): BP systolic 121–174; BP diastolic 62–92; PULSE 52–81; RESP 17–96; TEMP 36.1–36.6; O2SAT 93–98
[2025-01-26] MEDS: HEPARIN SOD INJ 5000 UNIT/ML VIAL SC ×3 (05:34→21:00)
[2025-01-26 06:26] LABS: Basophils % (Auto) 1 % (0-2.5); Eosinophils # (Auto) 0.2 Thou/mm3 (0.0-0.5); Eosinophils % (Auto) 4 % (0-10); Hematocrit 30.6 % (36.0-46.0); Hemoglobin 10.6 g/dL (12.0-16.0); Immature Granulocytes % (Auto) 0 % (0-0); Immature Granulocytes Auto 0.01 Thou/mm3 (0.00-0.00); Lymphocytes # (Auto) 1.8 Thou/mm3 (1.0-4.8); Lymphocytes % (Auto) 36 % (10-50); Mean Corpuscular HGB Conc 34.6 g/dl (31.0-37.0); Mean Corpuscular Hemoglobin 29.5 pg (25.0-35.0); Mean Corpuscular Volume 85 fL (80-100); Monocytes # (Auto) 0.4 Thou/mm3 (0.0-0.8); Monocytes % (Auto) 8 % (0-12); Neutrophils # (Auto) 2.7 Thou/mm3 (1.8-7.7); Neutrophils % (Auto) 52 % (37-80); Nucleated Red Blood Cell % 0 /100 WBC (0); Platelet Count 159 Thou/mm3 (140-440); RDW Standard Deviation 46.1 fL (36.4-46.3); Red Blood Count 3.59 Miln/mm3 (4.00-5.20); White Blood Count 5.2 Thou/mm3 (3.6-11.0)
[2025-01-26 06:50] LABS: Alanine Aminotransferase 12 U/L (10-49); Albumin, Serum 3.9 gm/dL (3.4-4.8); Albumin/Globulin Ratio 1.7 (1.2-2.2); Alkaline Phosphatase 102 U/L (46-116); Anion Gap 9 (7-16); Aspartate Amino Transferase 16 U/L (0-34); BUN/Creatinine Ratio 14 Ratio (12-20); Bilirubin,Total 0.4 mg/dL (0.3-1.2); Blood Urea Nitrogen 15 mg/dL (9-23); Calcium 8.9 mg/dL (8.3-10.6); Carbon Dioxide 24.5 mMol/L (20.0-31.0); Chloride 108 mMol/L (98-107); Creatinine (Component) 1.1 mg/dL (0.6-1.3); Estimated Creatinine Clearance 40.4 mL/min (>60); Globulin 2.3 gm/dL (2.3-3.5); Glucose 92 mg/dL (74-106); Magnesium 1.7 mg/dL (1.6-2.6); Osmolality,Calculated 282 (275-295); Potassium 4.2 mMol/L (3.4-5.1); Sodium 141 mMol/L (136-145); Total Protein 6.2 gm/dL (5.7-8.2); eGFR 50 See Note
[2025-01-26] MEDS: SODIUM CHLORIDE 0.9% 1000 ML 1,000 ML 85 ML IV (08:23)
[2025-01-26] MEDS: Magnesium Sulfate 2 GM Ivpb 2 GM/50 ML BAG IV (08:24)
[2025-01-26] MEDS: cefTRIAXone/D5w 1gm IV premix 1 GM/50 ML BAG IV (08:28)
[2025-01-26] MEDS: PANTOPRAZOLE 40 MG TABLET PO (08:29)
[2025-01-26] MEDS: ASPIRIN EC 81 MG TABEC PO (08:29)
--- NOTE | 2025-01-26 11:13 | PD.RESPRO ---
Documentation for date of: 01/26/25 Subjective Subjective Interval history: Patient is a 84-year-old female with a past medical history of hyperlipidemia, hypertension, and history of methamphetamine use disorder. Patient presented to the emergency room with a chief complaint of chest pain. Patient stated chest pain began on 01/23/2025 and has been intermittent all day. Patient stated pain began at sternal region and came on suddenly. Patient denied radiation. Patient stated she felt her chest was pounding but no skipped beats. 01/25/2025: No overnight events reported. Patient denied any cardiac complains. Denied chest pain, palpitations, or skipped beats. Eho pending. Patient is pending PT evlauation. 01/26/2025: No overnight events reported. Single episode of bradycardia overnight of 45 while patient slept. No abnormal arrythmias. Patient denied chest pain or shortness of breath. Denied palpitations. Continue Metoprolol 25 mg once daily. Resume home lisinopril at lower dose of 2.5 mg qday and d/c Amlodipine of BP does not tolerate. . Echo showing EF 55-60%. Exam Vital Signs Temp Pulse Resp BP Pulse Ox O2 Del Method 97.7 F 66 18 165/84 H 93 L Room Air 01/26/25 08:00 01/26/25 08:00 01/26/25 08:00 01/26/25 08:00 01/26/25 08:00 01/26/25 08:00 Narrative Exam General Appearance: Alert & Oriented X3, well-nourished female who is lying in bed in no acute distress HEENT: Skull symmetrical and atraumatic. Conjunctivae pale pink and moist. Pupils equal, round, reactive to light and accommodation (PERRL). External ear without lesion or discharge. Straight, nares patient, mucosa pink, no discharge. Cardio: Normal Rate and Rhythm with S1 and S2 heart sounds. No murmurs or extra heart sounds auscultated. No bruits on carotid auscultation. No peripheral edema or cyanosis. Lungs: Symmetric with good expansion. Chest and back non-tender. Breath sounds vesicular without crackles, wheezing or rhonchi Abdomen: Non-tender, Non-distended, Normal Reactive Bowel Sounds Neuro: Alert, cooperative, oriented to person, place, and time. Speech clear. CN grossly intact. Upper motor strength 5/5 and Lower motor strength 5/5. Sensation intact. Objective Labs 01/27/25 05:16 01/27/25 05:16 Labs: Laboratory Results - last 24 hr 01/26/25 06:08 WBC 5.2 RBC 3.59 L Hgb 10.6 L Hct 30.6 L MCV 85 MCH 29.5 MCHC 34.6 RDW Std Deviation 46.1 Plt Count 159 Neut % (Auto) 52 Lymph % (Auto) 36 [place] % (Auto) 8 Eos % (Auto) 4 Baso % (Auto) 1 Neut # (Auto) 2.7 Lymph # (Auto) 1.8 [place] # (Auto) 0.4 Eos # (Auto) 0.2 Baso # (Auto) 0.0 Immature Gran # (Auto) 0.01 H Absolute Nucleated RBC 0.00 Immature Gran % 0 Nucleated RBC % 0 Sodium 141 Potassium 4.2 Chloride 108 H Carbon Dioxide 24.5 Anion Gap 9 BUN 15 Creatinine 1.1 Estim Creat Clear Calc 40.4 L eGFR 50 L BUN/Creatinine Ratio 14 Glucose 92 Calculated Osmolality 282 Calcium 8.9 Corrected Calcium 9.0 Magnesium 1.7 Total Bilirubin 0.4 AST 16 ALT 12 Alkaline Phosphatase 102 Total Protein 6.2 Albumin 3.9 Globulin 2.3 Albumin/Globulin Ratio 1.7 ABG Interpretation ABG results: 01/24/25 04:51 ABG pH 7.40 ABG pCO2 36 ABG pO2 68 L ABG HCO3 22 ABG O2 Saturation 95 ABG Base Excess -2 Quality Measures Quality Measures none Advance care planning discussed with:: patient Assessment & Plan Assessment Current Active Medications: Generic Name Dose Route Start Last Admin Trade Name Freq PRN Reason Stop Dose Admin Hydrocodone Bitart/Acetaminophen 1 tab 01/24/25 04:50 01/25/25 16:43 Hydrocodone/Apap 5/325 Tablet PO 01/29/25 04:49 1 tab Q4HR PRN Administration PAIN SCALE 4-6 (Moderate Albuterol/Ipratropium 3 ml 01/24/25 04:50 Albuterol/Ipratropium (Duoneb) Rt Mariely 3 Ml Nebu INH 02/23/25 06:59 Q6HRRT PRN SOB or wheezing Aspirin 81 mg 01/24/25 11:45 01/26/25 08:29 Aspirin Ec 81 Mg Tabec PO 02/23/25 11:44 81 mg QDAY PIERRE Administration Atorvastatin Calcium 40 mg 01/24/25 21:00 01/25/25 21:11 Atorvastatin Calcium 20 Mg Tablet PO 02/23/25 20:59 40 mg HS PIERRE Administration Heparin Sodium (Porcine) 5,000 unit 01/24/25 06:00 01/26/25 05:34 Heparin Sod Inj 5000 Unit/Ml Vial SC 02/07/25 05:59 5,000 unit Q8HR PIERRE Administration Sodium Chloride 1,000 mls @ 85 mls/hr 01/24/25 05:00 01/26/25 08:23 Ns IV 02/23/25 04:59 85 mls/hr .[id number] PIERRE Administration Metoprolol Succinate 25 mg 01/26/25 09:00 Metoprolol Succinate Xl 25 Mg Tabcr PO 02/25/25 08:59 QDAY PIERRE Ondansetron HCl 4 mg 01/24/25 04:50 Ondansetron Inj 2 Mg/Ml Inj 2 Ml IVP 02/23/25 04:49 Q6H PRN NAUSEA OR VOMITING Protocol Pantoprazole Sodium 40 mg 01/25/25 09:00 01/26/25 08:29 Pantoprazole 40 Mg Tablet PO 02/24/25 08:59 40 mg QDAY PIERRE Administration Plan Patient is a 84-year-old female with a past medical history of hyperlipidemia, hypertension, and history of methamphetamine use disorder patient was admitted for SVT. Cardiology following. #SVT #NSTEMI Type II, likely demand ischemia SVT likely secondary to age versus DIANA versus less likely other cardiac abnormalities, pending echo. TSH within normalits. Tropnin and BNP likely increased secondary to cardiac stress, NSTEMI type II demand ischemia. Echo (01/25/2025): Normal LV size and function. Mild LVH. Estimated EF 55-60%.Indeterminate diastolic function.RV Normalsize and function. RVSP 23mmHg. RAP 10mmHg.Mild MAC. Trace MR. Trace TR, PI.Mild AV Sclerosis without stenosis. Mild AI.No Pericardial Effusion. TSH 2.76 A1c 5.5 Troponin 0.029,, 0.112, 0.239 C-reactive protein 2.7, BNP 231 Plan - Metoprolol succinate 25 mg daily, monitor HR and BP, if tolerated increase to Metoprolol Succinate 50 mg qday - Aspirin 81 mg daily - Potassium greater than 4 and magnesium greater than 2 #Hyperlipidemia Past medical history of hyperlipidemia, patient home medication of lovastatin 40 mg at bedtime Lipid panel (01/24/2025): Triglycerides 111, cholesterol 135, LDL 83 HDL 30 ASCVD score: Not applicable given age, continue atorvastatin nonetheless Plan -Continue atorvastatin 40 p.o. at bedtime #DIANA, improved. #Mild hyponatremia DIANA noted on admission likely prerenal given baseline of 1. BUN/creatinine ratio of 13. Continue to monitor for signs of intrinsic renal injury versus CKD given previous renal ultrasound from December 29, 2021 showing small kidneys with bilateral renal cortical thinning and moderate bilateral renal parenchymal scars. (01/25/2025): BUN 14 Cr 1.0 and GFR 56 Plan -Strict ins and outs -Continue to hold lisinopril, until DIANA improvement - Avoid nephrotoxins -Renal dose medication -Encourage oral hydration and NS maintenance fluid at 85 mL/h consider deseeding after first bag #Hypertension Patient possible home medication of lisinopril 40 mg once daily and amlodipine 5 mg once daily, patient a poor historian Plan - Recommending patient start metoprolol 25 XL daily - Resume Lisinopril 2.5 mg qday, follow up with PCP #Leukocytosis, improved. Leukocytosis likely reactive in the setting of SVT. Chest x-ray unremarkable no fevers or chills overnight versus less likely UTI as UA negative. C-reactive protein 2.7 Plan - Ceftriaxone 01/25/2025 -Blood cultures negative 24 hours - Consider D/C, after blood cultures #Microcytic anemia, less likely Drop in hemoglobin hematocrit since admission, likely dilutional effect as patient received fluids in the ER Plan - Continue to monitor hemoglobin hematocrit #History substance use disorder, methamphetamine use Denied any recent methamphetamine use, U tox negative. 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 Follow up with cardiology, Dr. Gonzalez, within one week of discharge. FEN: Cardiac DVT: on subQ heparin q8HR Code: Full Code - The patient's plan was discussed with attending Dr. Anumandla Cheyanne Galloway, MD PGY1 Internal Medicine Attending Provider Attestation/Addendum I have personally seen and examined the patient separately on the above date of service and discussed the plan of care with the resident. I reviewed the resident Dr. Cheyanne Galloway consultation progress note and agree with the resident findings and plan in the note above and have also edited the documentation to reflect my findings and plan. Dov Gonzalez M.D. Interventional Cardiology
[2025-01-26] MEDS: HYDROcodone/APAP 5/325 TABLET 1 TAB PO ×2 (13:20→20:56)
--- NOTE | 2025-01-26 14:57 | PC.SS ---
Rounding Note: Echo is pending. PT pending.
--- NOTE | 2025-01-26 15:15 | ESPR_ITS ---
<Statement entered by Jesus Alberto Valentino MD - 01/27/25 00:30> I discussed with and supervised the internal affairs commander physician involved in the care of this patient. Patient assessment and plan was discussed with entire medicine team, including my attending. I agree with the assessment and plan as documented by internal affairs commander doctor. Patient care was discussed with my attending physician Dr. Jaciel Valentino, PGY-2 Documentation for date of: 01/26/25 Subjective Subjective Interval history: Patient is seen and examined at bedside Overnight, patient is found to have mild bradycardia with heart rate around 50- 60 without any symptoms Patient denies any other complaints Vitals are stable. Physical examination remains unremarkable Blood pressure is mildly elevated-restarted her home medications Supplemented with 2 g of IV mag Echo read is pending. Will discharge to SNF once it is approved Exam Vital Signs Temp Pulse Resp BP Pulse Ox O2 Del Method 97.8 F 69 17 155/72 H 96 Room Air 01/26/25 12:00 01/26/25 12:39 01/26/25 12:00 01/26/25 12:39 01/26/25 12:00 01/26/25 12:00 Narrative Exam General: Awake. HEENT: Normocephalic, atraumatic, mucous membranes moist. rt eye s/p enucleation Heart: Regular rate and rhythm, no murmurs. Lungs: Clear to auscultation with no wheezing or crackles. Abdomen: Soft, nondistended, nontender, positive bowel sounds. ?No guarding or rebound tenderness. Neurologic: Alert and oriented x3, no gross neurological deficit, and patient able to move all 4 extremities. Extremities: No edema. Skin: No rash or ecchymoses. Objective Labs 01/27/25 05:16 01/27/25 05:16 Labs: Laboratory Results - last 24 hr 01/26/25 06:08 WBC 5.2 RBC 3.59 L Hgb 10.6 L Hct 30.6 L MCV 85 MCH 29.5 MCHC 34.6 RDW Std Deviation 46.1 Plt Count 159 Neut % (Auto) 52 Lymph % (Auto) 36 [place] % (Auto) 8 Eos % (Auto) 4 Baso % (Auto) 1 Neut # (Auto) 2.7 Lymph # (Auto) 1.8 [place] # (Auto) 0.4 Eos # (Auto) 0.2 Baso # (Auto) 0.0 Immature Gran # (Auto) 0.01 H Absolute Nucleated RBC 0.00 Immature Gran % 0 Nucleated RBC % 0 Sodium 141 Potassium 4.2 Chloride 108 H Carbon Dioxide 24.5 Anion Gap 9 BUN 15 Creatinine 1.1 Estim Creat Clear Calc 40.4 L eGFR 50 L BUN/Creatinine Ratio 14 Glucose 92 Calculated Osmolality 282 Calcium 8.9 Corrected Calcium 9.0 Magnesium 1.7 Total Bilirubin 0.4 AST 16 ALT 12 Alkaline Phosphatase 102 Total Protein 6.2 Albumin 3.9 Globulin 2.3 Albumin/Globulin Ratio 1.7 ABG Interpretation ABG results: 01/24/25 04:51 ABG pH 7.40 ABG pCO2 36 ABG pO2 68 L ABG HCO3 22 ABG O2 Saturation 95 ABG Base Excess -2 Quality Measures Quality Measures none Advance care planning discussed with:: patient Assessment & Plan Assessment Current Active Medications: Generic Name Dose Route Start Last Admin Trade Name Freq PRN Reason Stop Dose Admin Hydrocodone Bitart/Acetaminophen 1 tab 01/24/25 04:50 01/26/25 13:20 Hydrocodone/Apap 5/325 Tablet PO 01/29/25 04:49 1 tab Q4HR PRN Administration PAIN SCALE 4-6 (Moderate Albuterol/Ipratropium 3 ml 01/24/25 04:50 Albuterol/Ipratropium (Duoneb) Rt Mariely 3 Ml Nebu INH 02/23/25 06:59 Q6HRRT PRN SOB or wheezing Aspirin 81 mg 01/24/25 11:45 01/26/25 08:29 Aspirin Ec 81 Mg Tabec PO 02/23/25 11:44 81 mg QDAY PIERRE Administration Atorvastatin Calcium 40 mg 01/24/25 21:00 01/25/25 21:11 Atorvastatin Calcium 20 Mg Tablet PO 02/23/25 20:59 40 mg HS PIERRE Administration Heparin Sodium (Porcine) 5,000 unit 01/24/25 06:00 01/26/25 13:17 Heparin Sod Inj 5000 Unit/Ml Vial SC 02/07/25 05:59 5,000 unit Q8HR PIERRE Administration Metoprolol Succinate 25 mg 01/26/25 09:00 01/26/25 12:39 Metoprolol Succinate Xl 25 Mg Tabcr PO 02/25/25 08:59 Not Given QDAY PIERRE Ondansetron HCl 4 mg 01/24/25 04:50 Ondansetron Inj 2 Mg/Ml Inj 2 Ml IVP 02/23/25 04:49 Q6H PRN NAUSEA OR VOMITING Protocol Pantoprazole Sodium 40 mg 01/25/25 09:00 01/26/25 08:29 Pantoprazole 40 Mg Tablet PO 02/24/25 08:59 40 mg QDAY PIERRE Administration Plan 84-year-old female with past medical history of hyperlipidemia hypertension was admitted to the hospital on 01/24/2025 for SVT, DIANA, and possible community- acquired pneumonia. #SVT, resolved - Normal sinus rhythm #Hyper troponinemia, downtrended Patient came in due to complaints of chest pain and palpitations Was found to have SVT on EKG when arrived to the ED Patient was given adenosine 6 mg x 1 and adenosine 12 mg x 1 and converted back to sinus rhythm. A1c, TSH is within normal limits, lipid panel is within normal limits ECHO - showed 60% EF Troponin downtrended Plan: Will continue metoprolol 12.5 Mg once daily Elocution Teacher, Dr. Gonzalez is onboard, we appreciate his recommendations Continue with ceftriaxone in view of suspected underlying respiratory tract infection #DIANA, Resolved #Lactic acidosis, Resolved Patient came to creatinine of 1.4 and baseline is around 1.3 --> 1.1, 01/26 Lactic acid was 2.3 on arrival, later downtrended to 1.5 Plan: Avoid nephrotoxic agents Renally dose medications # History of hypertension - Home meds confirmed, on Amlodipine and lisinopril - Restarted Amlodipine 5mg once daily Disposition: Patient admitted to telemetry for SVT and DIANA Diet: Cardiac diet GI prophylaxis: Prophylaxis DVT prophylaxis: heparin subcu Code: Full Patient plan of care was discussed with the attending physician, Dr. Grissom and senior resident Dr. Chicho Jimenez, PGY1 Attending Provider Attestation/Addendum Theron, Monica Grissom, DO, attest that I was physically present for the strange portions of the service and evaluated the patient with the resident and I reviewed and discussed the case with the resident and agree with the resident's findings and plans of care as documented above Patient seen and eval this a.m. No acute events overnight. No further episodes of SVT or chest pain. Patient is in no acute distress on room air. Patient will need placement in custodial facility. Due to heart rate in the 60s, will decrease metoprolol to 12.5 mg daily. Will monitor blood pressure closely. Anticipate discharge in the next 24 hours as patient will need to stay for a third midnight to go to custodial facility.
[2025-01-26] MEDS: amLODIPine BESYLATE 5 MG TABLET PO (15:40)
[2025-01-26] MEDS: METOPROLOL SUCCINATE XL 25 MG TABCR 12.5 MG PO (15:40)
--- NOTE | 2025-01-26 15:54 | PC.SS ---
SNF referral submitted on [facility]. Responses pending. Preferred SNF is [facility].
--- NOTE | 2025-01-26 15:59 | PC.SS ---
PASSR completed. Level II criteria. PASSR follow up is pending.
[2025-01-26] MEDS: SERTRALINE HCL 25 MG TABLET 100 MG PO (20:56)
[2025-01-26] MEDS: ATORVASTATIN CALCIUM 20 MG TABLET 40 MG PO (20:56)
[2025-01-27] VITALS (10 sets, daily range): BP systolic 115–155; BP diastolic 62–98; PULSE 52–72; RESP 15–21; TEMP 36–36.4; O2SAT 94–98; BMI 29.1
[2025-01-27] MEDS: LEVOTHYROXINE SODIUM 25 MCG TABLET PO (05:16)
[2025-01-27] MEDS: HEPARIN SOD INJ 5000 UNIT/ML VIAL SC (05:16)
[2025-01-27 05:32] LABS: Basophils # (Auto) 0.1 Thou/mm3 (0.0-0.2); Basophils % (Auto) 1 % (0-2.5); Eosinophils # (Auto) 0.2 Thou/mm3 (0.0-0.5); Eosinophils % (Auto) 4 % (0-10); Hematocrit 31.8 % (36.0-46.0); Hemoglobin 10.9 g/dL (12.0-16.0); Immature Granulocytes % (Auto) 1 % (0-0); Immature Granulocytes Auto 0.04 Thou/mm3 (0.00-0.00); Lymphocytes # (Auto) 1.9 Thou/mm3 (1.0-4.8); Lymphocytes % (Auto) 40 % (10-50); Mean Corpuscular HGB Conc 34.3 g/dl (31.0-37.0); Mean Corpuscular Hemoglobin 29.6 pg (25.0-35.0); Mean Corpuscular Volume 86 fL (80-100); Monocytes # (Auto) 0.5 Thou/mm3 (0.0-0.8); Monocytes % (Auto) 10 % (0-12); Neutrophils # (Auto) 2.1 Thou/mm3 (1.8-7.7); Neutrophils % (Auto) 44 % (37-80); Nucleated Red Blood Cell % 0 /100 WBC (0); Platelet Count 158 Thou/mm3 (140-440); RDW Standard Deviation 46.3 fL (36.4-46.3); Red Blood Count 3.68 Miln/mm3 (4.00-5.20); White Blood Count 4.7 Thou/mm3 (3.6-11.0)
[2025-01-27 06:14] LABS: Anion Gap 9 (7-16); BUN/Creatinine Ratio 11 Ratio (12-20); Blood Urea Nitrogen 12 mg/dL (9-23); Calcium 9.1 mg/dL (8.3-10.6); Carbon Dioxide 24.4 mMol/L (20.0-31.0); Chloride 107 mMol/L (98-107); Creatinine (Component) 1.1 mg/dL (0.6-1.3); Estimated Creatinine Clearance 40.4 mL/min (>60); Glucose 95 mg/dL (74-106); Osmolality,Calculated 279 (275-295); Potassium 4.4 mMol/L (3.4-5.1); Sodium 140 mMol/L (136-145); eGFR 50 See Note
--- NOTE | 2025-01-27 08:38 | PC.SS ---
Addendum entered by MIRTHA Lei 01/27/25 16:57: Per Lakisha, the patient is now wanting to d/c back home and her friend Jaquelin is present to take the patient home. Batool at [facility] is aware and [facility] trip was cancelled. Addendum entered by MIRTHA Lei 01/27/25 16:33: Contacted [facility] and provided them with reference number to get an update for mixing picker tender time. They are aware patient will d/c today to [facility] and inform as of yet no transportation agency has confirmed mixing picker tender yet with ETA. Provided [facility] staff with [facility] contact number as well to be updated on transport. Addendum entered by MIRTHA Lei 01/27/25 14:36: [facility] reference number: [id number]. Pending transport ETA. Addendum entered by MIRTHA Lei 01/27/25 14:25: SS follow up: patient is agreeable to go to [facility] short term. Notified Batool at [facility] she is agreeable to accept the patient. [facility] Addendum entered by MIRTHA Lei 01/27/25 12:29: SS follow up: attempted contact again with patient's, friend Jaquelin Tate [phone] to discuss the patient's d/c plan. Voicemail and contact number provided. Addendum entered by MIRTHA Lei 01/27/25 09:48: SS update: per PTJorge the patient is independent. No PT needs. Addendum entered by MIRTHA Lei 01/27/25 09:40: SS update: per Lakisha the patient had a BM yesterday. RN informs the patient is now requesting to return back home. Patient informed however that she does not have her home residence keys and that her friend Jaquelin Tate [phone] could be contacted. [employer] attempted contact with Jaquelin and she was not available, voicemail was provided. Patient was asked if she would consider short term SNF and she advised she would be willing to if her friend Jaquelin was in agreement in regards to patient needing placement. Addendum entered by MIRTHA Lei 01/27/25 08:44: SS follow up: voicemail provided to PASRR disaster recovery specialist, Fredis Carrasco as patient's PASRR needs to be reviewed for closure. Contact number provided. Original Note: SS follow up: Spoke with Josie at [facility]. She confirms they will accept the patient when ready for discharge to their facility.
[2025-01-27] MEDS: METOPROLOL SUCCINATE XL 25 MG TABCR PO (10:09)
[2025-01-27] MEDS: ASPIRIN EC 81 MG TABEC PO (10:09)
[2025-01-27] MEDS: amLODIPine BESYLATE 5 MG TABLET PO (10:10)
[2025-01-27] MEDS: PANTOPRAZOLE 40 MG TABLET PO (10:10)
--- NOTE | 2025-01-27 11:54 | PC.PT ---
PT eval only. Patient is at her PLOF.
--- NOTE | 2025-01-27 12:21 | PC.SS ---
FIELD REPORTER completed follow up with PASSR staff, Fredis Carrasco. Level II to be closed. No follow up required. On line closure is pending.
--- NOTE | 2025-01-27 12:40 | PC.NURSE ---
Tried to call Jaquelin Roommate to confirm DC plans, no answer.
--- NOTE | 2025-01-27 16:27 | PC.NURSE ---
Report given to Anne BONILLA at [facility]. All discharge instructions provided.
--- NOTE | 2025-01-27 16:30 | ESDS_ITS ---
<Statement entered by Monica Grissom DO - 01/29/25 18:12> I, Monica Grissom DO, attest that I was physically present for the strange portions of the service and evaluated the patient with the resident and I reviewed and discussed the case with the resident and agree with the resident's findings and plans of care as documented above <Statement entered by Jesus Alberto Valentino MD - 01/29/25 07:14> I discussed with and supervised the manufacturing engineering intern physician involved in the care of this patient. Patient assessment and plan was discussed with entire medicine team, including my attending. I agree with the assessment and plan as documented by manufacturing engineering intern doctor. Jesus Alberto Valentino, PGY-2 Planned Discharge Date 01/27/25 DS: Providers Provider Date of admission: 01/24/25 04:50 Primary care physician: Sam Wilson MD Admitting Provider: Brown Meyer MD Attending Provider on Admission: Monica Grissom DO Consults: 01/24/25 08:15 Consult to Cardiology Routine Comment: svt Consulting Provider: Dov Gonzalez 01/26/25 15:26 Referral Physical Therapy Stat Comment: Physician Instructions: Attending Provider on DC: Deric Jimenez MD Discharging Provider: Deric Jimenez MD DS: Diagnosis Problem List Completed Was Problem List Reviewed/Reconciled?: Yes Hospital Course Hospital Course Hospital course: 84-year-old female with past medical history of hyperlipidemia hypertension was admitted to the hospital on 01/24/2025 after coming to the ED with complaints of chest pain and palpitations and admitted for SVT Hospital course: Vitals at the time of admission are significant for blood pressure 89/65 mmHg. Pulse rate is 185 bpm. EKG showed supraventricular tachycardia for which patient was given 6 Mg of adenosine followed by 12 Mg and patient reverted to normal sinus rhythm. Labs at the time of admission are significant for WBC 15.2, creatinine 1.4, lactate 2.3, CRP 2.7. Chest x-ray did not show any significant abnormality. Patient troponins are negative initially, later slightly up trended and again down trended. Poem Writer, Dr. Gonzaelz is consulted and he recommended metoprolol. Continue rest of her home medications. Echocardiogram during this hospital admission showed EF 55 to 60%. Blood cultures showed no growth after 48 hours. Later DIANA resolved and creatinine came back to 1.1 which is her baseline. Initially patient was supposed to go to a nursing facility, later her friend came on with her up to home. Patient is discharged to home with following medications and recommendations -Follow-up with primary care provider within 1 week of discharge. If you do not have appointment, please follow-up with the [facility] with Dr. Jimenez. Call [phone] to make an appointment. -Follow up with Dr. Gonzalez within 1 week of discharge. [address] [place] [address], -Start Metoprolol XL 25 Mg p.o. daily -Recommended to continue rest of the home medications and stop amlodipine for now. Take amlodipine if SBP>130 -Return to ED if symptoms persist or return #SVT, resolved - Normal sinus rhythm #Hyper troponinemia, downtrended #DIANA, Resolved #Lactic acidosis, Resolved # History of hypertension Patient plan of care was discussed with the attending physician, Dr. Grissom and senior resident Dr. Chicho Jimenez, PGY1 Time Spent with Patient Time attestation: Total time spent providing and/or coordinating discharge services: Time spent: Greater than 30 minutes Exam Vital Signs Temp Pulse Resp BP Pulse Ox O2 Del Method 97 F 61 17 153/88 H 98 Room Air 01/27/25 16:00 01/27/25 16:00 01/27/25 16:00 01/27/25 16:00 01/27/25 16:00 01/27/25 16:00 Narrative Exam General: Awake. HEENT: Normocephalic, atraumatic, mucous membranes moist. rt eye s/p enucleation Heart: Regular rate and rhythm, no murmurs. Lungs: Clear to auscultation with no wheezing or crackles. Abdomen: Soft, nondistended, nontender, positive bowel sounds. ?No guarding or rebound tenderness. Neurologic: Alert and oriented x3, no gross neurological deficit, and patient able to move all 4 extremities. Extremities: No edema. Skin: No rash or ecchymoses. Discharge Plan Plan Patient Disposition: Home w/HOME HEALTH Patient condition on transfer: Stable Care Plan Goals: -Follow-up with primary care provider within 1 week of discharge. If you do not have appointment, please follow-up with the [facility] with Dr. Jimenez. Call [phone] to make an appointment. -Follow up with Dr. Gonzalez within 1 week of discharge. [phone] -Start Metoprolol XL 25 Mg p.o. daily -Recommended to continue rest of the home medications and stop amlodipine for now. Take amlodipine if SBP>130 -Return to ED if symptoms persist or return Prescriptions/Referrals Prescriptions/Med Rec: New metoprolol succinate 25 mg Tablet Extended Release 24 Hr 25 mg PO QDAY Qty: 30 3RF Continued lovastatin 40 MG tablet 40 mg PO HS Qty: 0 lisinopril 40 MG tablet 40 mg PO QDAY Qty: 0 meclizine 12.5 mg tablet 12.5 mg PO Q12HR PRN (Reason: dizziness) Patient Comments: TAKE 1 TABLET BY MOUTH EVERY 12 HOURS NEEDED sertraline 100 mg tablet 100 mg PO HS levothyroxine 25 mcg tablet 25 mcg PO QAM Patient Comments: TAKE 1 TABLET BY MOUTH EVERY DAY IN THE MORNING ON EMPTY STOMACH FOR 90 DAYS clopidogrel 75 mg tablet 75 mg PO QAM Patient Comments: TAKE 1 TABLET BY MOUTH EVERY DAY loperamide 2 mg capsule 2 mg PO Q6H PRN (Reason: loose stool) Patient Comments: TAKE 1 CAPSULE BY MOUTH FOUR TIMES A DAY NEEDED FOR 10 DAYS Discontinued amlodipine 5 mg tablet 5 mg PO QDAY Qty: 30 0RF Referrals: Sam Wilson MD [Primary Care Provider] - Patient/Caregiver Discharge Instructions Other Discharge Activity Instructions:: -Follow-up with primary care provider within 1 week of discharge. If you do not have appointment, please follow-up with the [facility] with Dr. Jimenez. Call [phone] to make an appointment. -Follow up with Dr. Gonzalez within 1 week of discharge. [address] [place] [address], -Start Metoprolol XL 25 Mg p.o. daily -Recommended to continue rest of the home medications and stop amlodipine for now. Take amlodipine if SBP>130 -Return to ED if symptoms persist or return Education Materials: Low-Salt Choices, Hypertension Dc, Treatment for Supraventricular ..., ED About Arrhythmias Print Language: Cameroonian Stand Alone Forms: Jaquelin Award Info., Patient Portal Info Letter Discharge Order Discharge Orders: Discharge (Routine); Ordered 01/27/25 Ordered By: Deric Jimenez Quality Discharge Quality Measures VTE prophylaxis
--- NOTE | 2025-01-27 17:58 | PC.CC ---
Addendum entered by Ayleen Snowden RN 01/27/25 18:03: [facility] accepted the pt. Booked [facility]. Start of care date is01/28/25 Original Note: HH referral sent on [facility]. Awaiting responses. Pending start of care date.
--- NOTE | 2025-01-27 18:00 | PD.RESPRO ---
Documentation for date of: 01/27/25 Subjective Subjective Interval history: Patient is a 84-year-old female with a past medical history of hyperlipidemia, hypertension, and history of methamphetamine use disorder. Patient presented to the emergency room with a chief complaint of chest pain. Patient stated chest pain began on 01/23/2025 and has been intermittent all day. Patient stated pain began at sternal region and came on suddenly. Patient denied radiation. Patient stated she felt her chest was pounding but no skipped beats. 01/25/2025: No overnight events reported. Patient denied any cardiac complains. Denied chest pain, palpitations, or skipped beats. Eho pending. Patient is pending PT evlauation. 01/26/2025: No overnight events reported. Single episode of bradycardia overnight of 45 while patient slept. No abnormal arrythmias. Patient denied chest pain or shortness of breath. Denied palpitations. Continue Metoprolol 25 mg once daily. Resume home lisinopril at lower dose of 2.5 mg qday and d/c Amlodipine of BP does not tolerate. . Echo showing EF 55-60%. 01/27/2025 Patient is schedule to be discharged to SNF. Please follow up with cardiology, Dr. Gonzalez within one week of discharge. Please resume Lisnopril, home dose of Lisnopril is 40 mg but given addition of Metoprolol 25 mg PO qday, consider resuming at lower dose of Lisinopril. Exam Vital Signs Temp Pulse Resp BP Pulse Ox O2 Del Method 97.1 F 62 18 132/86 H 98 Room Air 01/27/25 17:04 01/27/25 17:04 01/27/25 17:04 01/27/25 17:04 01/27/25 17:04 01/27/25 17:04 Narrative Exam General Appearance: Alert & Oriented X3, well-nourished female who is lying in bed in no acute distress HEENT: Skull symmetrical and atraumatic. Conjunctivae pale pink and moist. Pupils equal, round, reactive to light and accommodation (PERRL). External ear without lesion or discharge. Straight, nares patient, mucosa pink, no discharge. Cardio: Normal Rate and Rhythm with S1 and S2 heart sounds. No murmurs or extra heart sounds auscultated. No bruits on carotid auscultation. No peripheral edema or cyanosis. Lungs: Symmetric with good expansion. Chest and back non-tender. Breath sounds vesicular without crackles, wheezing or rhonchi Abdomen: Non-tender, Non-distended, Normal Reactive Bowel Sounds Neuro: Alert, cooperative, oriented to person, place, and time. Speech clear. CN grossly intact. Upper motor strength 5/5 and Lower motor strength 5/5. Sensation intact. Objective Labs 01/27/25 05:16 01/27/25 05:16 Labs: Laboratory Results - last 24 hr 01/27/25 05:16 WBC 4.7 RBC 3.68 L Hgb 10.9 L Hct 31.8 L MCV 86 MCH 29.6 MCHC 34.3 RDW Std Deviation 46.3 Plt Count 158 Neut % (Auto) 44 Lymph % (Auto) 40 [place] % (Auto) 10 Eos % (Auto) 4 Baso % (Auto) 1 Neut # (Auto) 2.1 Lymph # (Auto) 1.9 [place] # (Auto) 0.5 Eos # (Auto) 0.2 Baso # (Auto) 0.1 Immature Gran # (Auto) 0.04 H Absolute Nucleated RBC 0.00 Immature Gran % 1 H Nucleated RBC % 0 Sodium 140 Potassium 4.4 Chloride 107 Carbon Dioxide 24.4 Anion Gap 9 BUN 12 Creatinine 1.1 Estim Creat Clear Calc 40.4 L eGFR 50 L BUN/Creatinine Ratio 11 L Glucose 95 Calculated Osmolality 279 Calcium 9.1 ABG Interpretation ABG results: 01/24/25 04:51 ABG pH 7.40 ABG pCO2 36 ABG pO2 68 L ABG HCO3 22 ABG O2 Saturation 95 ABG Base Excess -2 Quality Measures Quality Measures none Advance care planning discussed with:: patient Assessment & Plan Plan Patient is a 84-year-old female with a past medical history of hyperlipidemia, hypertension, and history of methamphetamine use disorder patient was admitted for SVT. Cardiology following. #SVT, resolved. #NSTEMI Type II, likely demand ischemia SVT likely secondary to age versus DIANA versus less likely other cardiac abnormalities, pending echo. TSH within normalits. Tropnin and BNP likely increased secondary to cardiac stress, NSTEMI type II demand ischemia. Echo (01/25/2025): Normal LV size and function. Mild LVH. Estimated EF 55-60%.Indeterminate diastolic function.RV Normalsize and function. RVSP 23mmHg. RAP 10mmHg.Mild MAC. Trace MR. Trace TR, PI.Mild AV Sclerosis without stenosis. Mild AI.No Pericardial Effusion. TSH 2.76 A1c 5.5 Troponin 0.029,, 0.112, 0.239 C-reactive protein 2.7, BNP 231 Plan - Metoprolol succinate 25 mg daily, monitor HR and BP, if tolerated increase to Metoprolol Succinate 50 mg qday - Aspirin 81 mg daily - Potassium greater than 4 and magnesium greater than 2 #Hyperlipidemia Past medical history of hyperlipidemia, patient home medication of lovastatin 40 mg at bedtime Lipid panel (01/24/2025): Triglycerides 111, cholesterol 135, LDL 83 HDL 30 ASCVD score: Not applicable given age, continue atorvastatin nonetheless Plan -Continue atorvastatin 40 p.o. at bedtime #DIANA, improved. #Mild hyponatremia DIANA noted on admission likely prerenal given baseline of 1. BUN/creatinine ratio of 13. Continue to monitor for signs of intrinsic renal injury versus CKD given previous renal ultrasound from December 29, 2021 showing small kidneys with bilateral renal cortical thinning and moderate bilateral renal parenchymal scars. (01/25/2025): BUN 12 Cr 1.1 and GFR 50 Plan -Strict ins and outs - Avoid nephrotoxins -Renal dose medication -Encourage oral hydration and NS maintenance fluid at 85 mL/h consider deseeding after first bag #Hypertension Patient possible home medication of lisinopril 40 mg once daily and amlodipine 5 mg once daily, patient a poor historian Plan - Recommending patient start metoprolol 25 XL daily -Resume Lisinopril at a lower dose, consider 2.5 mg as patient was started on Metoprolol. Home dose of Lisinopril may be to high - D/C home Amlodipine #Leukocytosis, improved. Leukocytosis likely reactive in the setting of SVT. Chest x-ray unremarkable no fevers or chills overnight versus less likely UTI as UA negative. C-reactive protein 2.7 Plan - Ceftriaxone 01/25/2025 -Blood cultures negative 24 hours - Consider D/C, after blood cultures #Microcytic anemia, less likely Drop in hemoglobin hematocrit since admission, likely dilutional effect as patient received fluids in the ER Plan - Continue to monitor hemoglobin hematocrit #History substance use disorder, methamphetamine use Denied any recent methamphetamine use, U tox negative. 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 Follow up with cardiology, Dr. Gonzalez, within one week of discharge. FEN: Cardiac DVT: on subQ heparin q8HR Code: Full Code - The patient's plan was discussed with attending Dr. Lisa Galloway MD PGY1 Internal Medicine Attending Provider Attestation/Addendum I have personally seen and examined the patient separately on the above date of service and discussed the plan of care with the resident. I reviewed the resident Dr. Cheyanne Galloway consultation progress note and agree with the resident findings and plan in the note above and have also edited the documentation to reflect my findings and plan. Dov Gonzalez M.D. Interventional Cardiology
== END 2025-01-27 17:04 | disposition home health service (06) | DRG 308 ==
LOC: SERX 04:38 → SERHOLD 05:14 → S2NX 10:07 → S3SX 01-27 04:48
PROVIDERS: Admitting Provider Student in an Organized Health Care Education/Training Program; Emergency Provider Emergency Medicine; PCP Family Medicine; Visit Provider Internal Medicine
DX: I47.10 Supraventricular tachycardia, unspecified (principal); J18.9 Pneumonia, unspecified organism; E87.1 Hypo-osmolality and hyponatremia; E87.20 Acidosis, unspecified; N17.9 Acute kidney failure, unspecified; N39.0 Urinary tract infection, site not specified; T85.43XA Leakage of breast prosthesis and implant, initial encounter; Z59.00 Homelessness unspecified; I10 Essential (primary) hypertension; E78.00 Pure hypercholesterolemia, unspecified; R79.89 Other specified abnormal findings of blood chemistry; Z98.82 Breast implant status; D50.9 Iron deficiency anemia, unspecified; E03.9 Hypothyroidism, unspecified; E83.42 Hypomagnesemia; E87.6 Hypokalemia; F32.A Depression, unspecified; F41.9 Anxiety disorder, unspecified; I48.91 Unspecified atrial fibrillation; N27.1 Small kidney, bilateral; Y81.2 Prosthetic and other implants, materials and accessory general- and plastic-surgery devices associated with adverse incidents; Z79.82 Long term (current) use of aspirin; Z86.73 Personal history of transient ischemic attack (TIA), and cerebral infarction without residual deficits; H54.61 Unqualified visual loss, right eye, normal vision left eye
CPT/HCPCS: 36415; 36600; 71045; 80048; 80053; 80061; 80307; 80320; 81001; 82010; 82248; 82803; 83036; 83605; 83735; 83880; 84145; 84439; 84443; 84484; 85025; 85379; 85610; 85652; 85730; 86140; 87040; 87400; 87811; 93005; 93306; 96361; 96365; 96372; 96374; 97161; 99291; J0153; J0456; J0696; J1644; J3475; J7030; J7050; A9270; G0480

== ENCOUNTER 2025-02-08 18:27 | Emergency (ER) | payer MEDICARE, MEDICAID, SELFPAY ==
[2025-02-08] VITALS (7 sets, daily range): BP systolic 99–173; BP diastolic 71–98; PULSE 59–165; RESP 14–22; TEMP 36.4–37.1; O2SAT 95–99; BMI 28.7
--- NOTE | 2025-02-08 18:31 | EKG_ITS ---
[facility] Test Date: 2025-02-08 Pat Name: AMY TO Department: Room: - Gender: Female Glass Installer: : 1940 Requested By: ED Temporary Provider Order Number: [id number] Reading MD: ED Temporary Provider Measurements Intervals [place] Rate: 156 P: SD: QRS: 72 QRSD: 119 T: 68 QT: 275 QTc: 443 Interpretive Statements UNCERTAIN REGULAR RHYTHM MODERATE INTRAVENTRICULAR CONDUCTION DELAY [110+ ms QRS DURATION] MODERATE ST DEPRESSION [0.05+ mV ST DEPRESSION] CRITICAL TEST RESULT Compared to ECG 01/24/2025 11:56:30 Intraventricular conduction delay now present ST (T wave) deviation now present Sinus rhythm no longer present First degree AV block no longer present T-wave abnormality no longer present /store/S0/[id number].pdf
--- NOTE | 2025-02-08 18:34 | XR_ITS ---
Examination: PA lateral chest 2 views TECHNIQUE: Upright PA and lateral chest 2 views Date and time: February 08, 2025 1848 hours Comparison January 24, 2025, chest films dating to December 14, 2016 INDICATIONS: Chest pain today. FINDINGS: Normal heart size No pneumonia or pulmonary edema 16 mm pulmonary nodule right upper lobe compared to 17 mm on December 14, 2016 No new pulmonary nodules IMPRESSION: No interval pneumonia or pulmonary edema
--- NOTE | 2025-02-08 19:20 | PD.EDCHEST ---
ED Chest Pain RME/HPI General Chief Complaint: Chest Pain Stated Complaint: CHEST PAIN SINCE 1700 Time Seen by Provider: 02/08/25 19:26 Arrival date/time: 02/08/25 18:27 RME / HPI RME / HPI narrative: This section includes all my notes and documentations, including HPI, PE, and ED course. Anmol Luis MD HPI: 84yo female with history of HTN, HLD on Plavix here with palpitations that started about 6 hours ago. Had brief chest pain now resolved. No fever, chills, cough, shortness of breath, N/V, decreased appetite. No other complaints reported. ROS: All negative except as documented in HPI. Physical Exam: General: Alert and oriented. No acute distress when remaining still. Eyes: Conjunctivae and lids clear. ENT: No nasal congestion. Neck: Supple. Heart: RRR. Lungs: No respiratory distress. Good air movement. No rhonchi, wheezing, rales. Abdomen: Soft and nontender. Skin: Warm and dry. Neuro: Alert and oriented X 3. I reviewed EMS and skilled nursing notes. I reviewed all diagnostic test results. My interpretation of the EKG is uncertain rhythm 156 bpm (SVT versus sinus tachycardia). My interpretation of the chest x-ray is NAD. Blood tests unremarkable (troponin lower than her chronically elevated troponin) and stable BNP. At this point, diagnoses include palpitations. Treatment here included Aspirin, NS, Metoprolol, and Zofran. Significant improvement noted. Patient's symptoms resolved. Cardiac rhythm returned to normal rate in obvious sinus rhythm and remained stable. The EKG was done before patient coming to the main ED. By the time the patient was roomed in the main ED, heart rate returned to normal with obvious sinus rhythm. And remained stable. Recommended more outpatient workup. Based on my best medical judgment, made decision no further evaluation or treatment indicated at this time. Patient understands and agrees to the discharge instructions customized and printed, see below. Discharge instructions from Dr. Luis: 1. After extensive evaluation, there is no life-threatening condition. Such as heart attack or pulmonary embolism (blood clots in your lungs) or pneumothorax (collapsed lung). 2. Metoprolol to slow your heart rate was given and your symptoms resolved. 3. Currently, you take metoprolol 25 mg once daily. Starting tomorrow, take once in the morning and once in the evening. Prescription sent to your pharmacy. 4. See a private doctor on 02/09/2025 for recheck and further care. To make sure there is no serious underlying heart condition, ask to help you get more tests for your heart that cannot be done here in the ER. Such as Holter Monitor (cardiac monitoring at home from a day to even a month), heart stress test (on treadmill or with medication), echocardiogram (imaging of your heart structures), heart catherization (checking for blockages in your heart arteries), and a referral to see a Scoop Machine Operator. Ask to review all test results and official radiology reports, to make sure you receive all necessary follow-ups and monitoring. 5. Seek immediate medical care with worsening or with any concerns. Anmol Luis MD Related Data Home Medications ?Medication ?Instructions ?Recorded ?Confirmed lisinopril 40 mg tablet 40 mg PO QDAY HBP #0 tabs 09/08/14 01/25/25 lovastatin 40 mg tablet 40 mg PO HS CHOLESTEROL #0 tabs 09/08/14 01/25/25 clopidogrel 75 mg tablet 75 mg PO QAM 01/25/25 01/25/25 levothyroxine 25 mcg tablet 25 mcg PO QAM 01/25/25 01/25/25 loperamide 2 mg capsule 2 mg PO Q6H PRN loose stool 01/25/25 01/25/25 meclizine 12.5 mg tablet 12.5 mg PO Q12HR PRN dizziness 01/25/25 01/25/25 sertraline 100 mg tablet 100 mg PO HS depression 01/25/25 01/25/25 Previous Rx's ?Medication ?Instructions ?Recorded metoprolol succinate 25 mg 25 mg PO QDAY #30 tabs 01/27/25 tablet,extended release 24 hr metoprolol succinate 25 mg 25 mg PO BID #60 tabs 02/08/25 tablet,extended release 24 hr Allergies Allergy/AdvReac Type Severity Reaction Status Date / Time No Known Allergies Allergy Verified 02/08/25 18:30 Review of Systems Review of Systems Systems Reviewed: All systems reviewed, normal except as documented Past Medical History Past Medical History NEUROLOGIC: Positive Neurological Disorders and Cerebrovascular Accident (10 years ago) CARDIAC: Positive Cardiac Disorders, Atrial Fibrillation, Hypercholesterolemia and Hypertension; Negative Congestive Heart Failure RESPIRATORY: Negative Chronic Obstructive Pulmonary Disease (COPD) GASTROINTESTINAL: Negative Gastrointestinal Disorders or Gastroesophageal Reflux Disease GENITOURINARY: Negative Genitourinary Disorders or Renal Disease MUSCULOSKELETAL: Negative Musculoskeletal Disorders ENT: Positive Blind (LEFT EYE REMOVED) ENDOCRINE: Negative Endocrine Disorders, Diabetes Mellitus Type 1 or Diabetes Mellitus Type 2 PSYCHO/SOCIAL: Positive Recreational Drug Use (Meth (last use >6years)) and Depression Family History FAMILY HISTORY: Positive Family Cardiac Disorders Surgical History SURGICAL: Positive Eye Surgery Social History SMOKING STATUS: Never smoker SUBSTANCE USE: does not use ED Exam Narrative Physical exam: As noted in HPI. Course Course Course Narrative: CXR is ordered for determining the etiology of chest pain. Quality Measures none Orders Category Date Time Status EKG (ED ONLY) *Do not use* NOW Care 02/08/25 18:31 Completed EKG (ED ONLY) *Do not use* NOW Care 02/08/25 19:26 Completed Saline [Insert IV] NOW Care 02/08/25 19:29 Completed EKG (ED Only) Stat Exams 02/08/25 18:31 Draft EKG (ED Only) Stat Exams 02/08/25 19:26 Ordered XR chest 2V Stat Exams 02/08/25 18:34 Completed B-Type Natriuretic Peptide Stat Lab 02/08/25 19:45 Completed CBC Stat Lab 02/08/25 19:45 Completed Comprehensive Metabolic Panel Stat Lab 02/08/25 19:45 Completed D-Dimer Stat Lab 02/08/25 19:45 Completed Free T4 (Free Thyroxine) Stat Lab 02/08/25 19:45 Completed Magnesium Stat Lab 02/08/25 19:45 Completed Partial Thromboplastin Time Stat Lab 02/08/25 19:45 Completed Prothrombin Time with INR Stat Lab 02/08/25 19:45 Completed Thyroid Stimulating Hormone Stat Lab 02/08/25 19:45 Completed Troponin I Stat Lab 02/08/25 19:45 Completed Aspirin Chew Med 02/08/25 18:33 Discontinued 324 mg PO X1 ONE Metoprolol Tartrate [Lopressor] Med 02/08/25 19:29 Discontinued 12.5 mg PO X1 ONE Ondansetron Inj [Zofran Inj] Med 02/08/25 19:29 Discontinued 4 mg IVP X1 ONE Sodium Chloride 0.9% 1000 ml [Ns] 1,000 ml Med 02/08/25 19:29 Discontinued IV 999 mls/hr Vital Signs Vital signs: Vital Signs Temperature 97.6 F 02/08/25 18:51 Pulse Rate 165 H 02/08/25 18:51 Respiratory Rate 19 02/08/25 18:51 Blood Pressure 107/71 02/08/25 18:51 Pulse Oximetry (%) 99 02/08/25 18:51 Oxygen Delivery Method Room Air 02/08/25 18:51 Chest Pain MDM Narrative MDM Narrative:: 84yo female with history of HTN, HLD on Plavix here with palpitations that started about 6 hours ago. Had brief chest pain now resolved. No fever, chills, cough, shortness of breath, N/V, decreased appetite. No other complaints reported. Patient data External records reviewed:: [facility] previous records (Per chart review, patient was admitted here on 01/24/25 for DIANA.) and EMS form Clinical information provided by:: patient Social determinants that could affect healthcare access:: none Patient has the following chronic illnesses:: HTN, HLD How is presenting disease/condition affected by chronic disease/condition?: uneffected by Evaluation data The following diagnostics were reviewed and interpreted by me:: lab results, radiology exam(s) and EKG tracing(s) Lab and/or radiology exams considered but not ordered:: none Interpretation Summary: I reviewed all diagnostic test results. My interpretation of the EKG is uncertain rhythm 156 bpm (SVT versus sinus tachycardia). My interpretation of the chest x-ray is NAD. Blood tests unremarkable (troponin lower than her chronically elevated troponin) and stable BNP. Medications / Prescriptions Medications or Prescriptions considered but not ordered:: none Medication administrations:: Medication Administration History Discontinued Medications Aspirin (Aspirin 81 Mg Chew) 324 mg PO X1 ONE Stop: 02/08/25 18:34 Last Admin: 02/08/25 19:33 Dose: 324 mg Documented By: JUSTIN Sodium Chloride (Ns) 1,000 mls @ 999 mls/hr IV .Q1H1M ONE Stop: 02/08/25 20:29 Last Infusion: 02/08/25 20:58 Dose: Infused Documented By: Admin: 02/08/25 19:57 Dose: 999 mls/hr Documented By: JUSTIN Metoprolol Tartrate (Metoprolol Tartrate 25 Mg Tablet) 12.5 mg PO X1 ONE Stop: 02/08/25 19:30 Last Admin: 02/08/25 20:04 Dose: 12.5 mg Documented By: CG Ondansetron HCl (Ondansetron Inj 2 Mg/Ml Inj 2 Ml) 4 mg IVP X1 ONE; Protocol Stop: 02/08/25 19:30 Last Admin: 02/08/25 19:57 Dose: 4 mg Documented By: JUSTIN Aspirin, NS, Metoprolol, Zofran Consultations Consultation(s) initiated? (list below): No Diagnosis Chest Pain Differential Diagnosis: pneumothorax, stable angina, unstable angina pectoris, atypical chest pain, st elevation myocardial infarction, costochondritis, chest pain and other (SVT, sinus tachycardia, anxiety) Most likely diagnosis given after review of the tests above:: Palpitations (SVT probably converted) Admission Indicated Admission indicated?: not indicated Explain why admission is indicated or not indicated:: With significant improvement and no condition needing emergent intervention, there was no indication for admission. Admission Request Was there a request for admission?: No Disposition Plan Disposition Plan: Discharge Discharge Attestation Discharge Attestation: The patient and all family members were given an opportunity to ask questions and understood the discharge instructions. Discharge instructions specifically effects, indications for sooner follow up or return to the emergency department, and the expected course of current diagnosis. Patient condition: Stable Discharge Plan Plan Patient Disposition: HOME (Self Care) Prescriptions/Referrals Prescriptions/Med Rec: New metoprolol succinate 25 mg tablet extended release 24 hr 25 mg PO BID Qty: 60 0RF No Action lovastatin 40 MG tablet 40 mg PO HS Qty: 0 lisinopril 40 MG tablet 40 mg PO QDAY Qty: 0 meclizine 12.5 mg tablet 12.5 mg PO Q12HR PRN (Reason: dizziness) Patient Comments: TAKE 1 TABLET BY MOUTH EVERY 12 HOURS NEEDED sertraline 100 mg tablet 100 mg PO HS levothyroxine 25 mcg tablet 25 mcg PO QAM Patient Comments: TAKE 1 TABLET BY MOUTH EVERY DAY IN THE MORNING ON EMPTY STOMACH FOR 90 DAYS clopidogrel 75 mg tablet 75 mg PO QAM Patient Comments: TAKE 1 TABLET BY MOUTH EVERY DAY loperamide 2 mg capsule 2 mg PO Q6H PRN (Reason: loose stool) Patient Comments: TAKE 1 CAPSULE BY MOUTH FOUR TIMES A DAY NEEDED FOR 10 DAYS metoprolol succinate 25 mg Tablet Extended Release 24 Hr 25 mg PO QDAY Qty: 30 3RF Referrals: Sam Wilson MD [Primary Care Provider] - In 1 week Problem List Clinical Impression: Palpitations Patient/Caregiver Discharge Instructions Discharge Activity: activity as tolerated Education Materials: ED Palpitations Additional Instructions: Discharge instructions from Dr. Luis: 1. After extensive evaluation, there is no life-threatening condition.? Such as heart attack or pulmonary embolism (blood clots in your lungs) or pneumothorax (collapsed lung). 2. Metoprolol to slow your heart rate was given and your symptoms resolved. 3. Currently, you take metoprolol 25 mg once daily. Starting tomorrow, take once in the morning and once in the evening. Prescription sent to your pharmacy. 4. See a private doctor on 02/09/2025 for recheck and further care. To make sure there is no serious underlying heart condition, ask to help you get more tests for your heart that cannot be done here in the ER.? Such as Holter Monitor (cardiac monitoring at home from a day to even a month), heart stress test (on treadmill or with medication), echocardiogram (imaging of your heart structures), heart catherization (checking for blockages in your heart arteries), and a referral to see a Scoop Machine Operator. Ask to review all test results and official radiology reports, to make sure you receive all necessary follow-ups and monitoring. 5. Seek immediate medical care with worsening or with any concerns.?? Print Language: Gibraltarian Stand Alone Forms: Jaquelin Award Info., Patient Portal Info Letter
[2025-02-08] MEDS: ASPIRIN 81 MG CHEW 324 MG PO (19:33)
[2025-02-08] MEDS: ONDANSETRON INJ 2 MG/ML INJ 2 ML 4 MG IVP (19:57)
[2025-02-08] MEDS: SODIUM CHLORIDE 0.9% 1000 ML 1,000 ML 999 ML IV (19:57)
[2025-02-08] MEDS: METOPROLOL TARTRATE 25 MG TABLET 12.5 MG PO (20:04)
[2025-02-08 20:44] LABS: Basophils # (Auto) 0.1 Thou/mm3 (0.0-0.2); Basophils % (Auto) 1 % (0-2.5); Eosinophils # (Auto) 0.0 Thou/mm3 (0.0-0.5); Eosinophils % (Auto) 0 % (0-10); Hematocrit 38.4 % (36.0-46.0); Hemoglobin 13.3 g/dL (12.0-16.0); Immature Granulocytes Auto 0.03 Thou/mm3 (0.00-0.00); Lymphocytes # (Auto) 1.6 Thou/mm3 (1.0-4.8); Lymphocytes % (Auto) 19 % (10-50); Mean Corpuscular HGB Conc 34.6 g/dl (31.0-37.0); Mean Corpuscular Hemoglobin 29.4 pg (25.0-35.0); Mean Corpuscular Volume 85 fL (80-100); Monocytes # (Auto) 0.5 Thou/mm3 (0.0-0.8); Monocytes % (Auto) 6 % (0-12); Neutrophils # (Auto) 6.0 Thou/mm3 (1.8-7.7); Neutrophils % (Auto) 74 % (37-80); Nucleated Red Blood Cell # 0.00 Thou/mm3 (0.00-0.00); Nucleated Red Blood Cell % 0 /100 WBC (0); Platelet Count 196 Thou/mm3 (140-440); RDW Standard Deviation 45.2 fL (36.4-46.3); Red Blood Count 4.52 Miln/mm3 (4.00-5.20); White Blood Count 8.1 Thou/mm3 (3.6-11.0)
[2025-02-08 20:57] LABS: INR 1.0 (0.9-1.3); Partial Thromboplastin Time 24.5 Seconds (22.0-36.0); Prothrombin Time 11.4 Seconds (9.0-12.2)
[2025-02-08 21:01] LABS: B-Type Natriuretic Peptide 337 pg/mL (0-100)
[2025-02-08 21:07] LABS: Alanine Aminotransferase 24 U/L (10-49); Albumin, Serum 5.2 gm/dL (3.4-4.8); Albumin/Globulin Ratio 1.7 (1.2-2.2); Alkaline Phosphatase 134 U/L (46-116); Anion Gap 15 (7-16); Aspartate Amino Transferase 25 U/L (0-34); BUN/Creatinine Ratio 10 Ratio (12-20); Bilirubin,Total 0.5 mg/dL (0.3-1.2); Blood Urea Nitrogen 26 mg/dL (9-23); Calcium 11.0 mg/dL (8.3-10.6); Calcium (Corrected) 11.0 mg/dL (8.5-10.1); Carbon Dioxide 22.2 mMol/L (20.0-31.0); Chloride 114 mMol/L (98-107); Creatinine (Component) 2.5 mg/dL (0.6-1.3); Estimated Creatinine Clearance 17.9 mL/min (>60); Free T4 (Free Thyroxine) 1.09 ng/dL (0.89-1.76); Globulin 3.1 gm/dL (2.3-3.5); Glucose 142 mg/dL (74-106); Magnesium 1.9 mg/dL (1.6-2.6); Osmolality,Calculated 306 (275-295); Potassium 4.5 mMol/L (3.4-5.1); Sodium 151 mMol/L (136-145); Thyroid Stimulating Hormone 3.93 uIU/mL (0.55-4.78); Total Protein 8.3 gm/dL (5.7-8.2); eGFR 18 See Note
[2025-02-08 21:14] LABS: Troponin I 0.071 ng/mL (0.0-0.045)
[2025-02-08 21:36] LABS: D-Dimer 386 ng/mL (<600)
== END 2025-02-08 23:56 | disposition home or self-care (01) ==
PROVIDERS: Emergency Provider Emergency Medicine; PCP Family Medicine
DX: R00.2 Palpitations (principal); R07.9 Chest pain, unspecified
CPT/HCPCS: 36415; 71046; 80053; 83735; 83880; 84439; 84443; 84484; 85025; 85379; 85610; 85730; 93005; 96361; 96374; 99284; J2405; J7030; A9270

== ENCOUNTER 2025-03-30 01:01 | Emergency (ER) | payer MEDICARE, MEDICAID, SELFPAY ==
--- NOTE | 2025-03-30 01:12 | PD.EDCHEST ---
ED Chest Pain RME/HPI General Chief Complaint: Chest Pain Stated Complaint: CHEST PAIN Time Seen by Provider: 03/30/25 01:25 Arrival date/time: 03/30/25 01:01 RME / HPI RME / HPI narrative: Dr. Herrera?s Main ED Evaluation: 84yo female arrives by EMS after having developed sudden high epigastric pain radiating to the lower substernal region, occasionally described as sharp in nature, initially with a pleuritic component and shortness of breath. No V/D, palpitations, lightheadedness, or near syncope. Known history of NSTEMI and aFib on anticoagulation therapy. PMH aFib, HTN, chronic depression, iron deficiency anemia, GRACIELA. Nonsmoker. No excessive alcohol or illicit drug use. Patient was administered 1 sublingual nitroglycerin and topical paste and full dose aspirin by EMS. Related Data Home Medications ?Medication ?Instructions ?Recorded ?Confirmed lisinopril 40 mg tablet 40 mg PO QDAY HBP #0 tabs 09/08/14 01/25/25 lovastatin 40 mg tablet 40 mg PO HS CHOLESTEROL #0 tabs 09/08/14 01/25/25 clopidogrel 75 mg tablet 75 mg PO QAM 01/25/25 01/25/25 levothyroxine 25 mcg tablet 25 mcg PO QAM 01/25/25 01/25/25 loperamide 2 mg capsule 2 mg PO Q6H PRN loose stool 01/25/25 01/25/25 meclizine 12.5 mg tablet 12.5 mg PO Q12HR PRN dizziness 01/25/25 01/25/25 sertraline 100 mg tablet 100 mg PO HS depression 01/25/25 01/25/25 Previous Rx's ?Medication ?Instructions ?Recorded metoprolol succinate 25 mg 25 mg PO QDAY #30 tabs 01/27/25 tablet,extended release 24 hr metoprolol succinate 25 mg 25 mg PO BID #60 tabs 02/08/25 tablet,extended release 24 hr pantoprazole 40 mg tablet,delayed 40 mg PO QDAY #30 tabs 03/30/25 release (Protonix) Allergies Allergy/AdvReac Type Severity Reaction Status Date / Time No Known Allergies Allergy Verified 02/08/25 18:30 Review of Systems Review of Systems Systems Reviewed: All systems reviewed, normal except as documented Past Medical History Past Medical History NEUROLOGIC: Positive Neurological Disorders and Cerebrovascular Accident (10 years ago) CARDIAC: Positive Cardiac Disorders, Atrial Fibrillation, Hypercholesterolemia and Hypertension; Negative Congestive Heart Failure RESPIRATORY: Negative Chronic Obstructive Pulmonary Disease (COPD) GASTROINTESTINAL: Negative Gastrointestinal Disorders or Gastroesophageal Reflux Disease GENITOURINARY: Negative Genitourinary Disorders or Renal Disease MUSCULOSKELETAL: Negative Musculoskeletal Disorders ENT: Positive Blind (LEFT EYE REMOVED) ENDOCRINE: Negative Endocrine Disorders, Diabetes Mellitus Type 1 or Diabetes Mellitus Type 2 PSYCHO/SOCIAL: Positive Recreational Drug Use (Meth (last use >6years)) and Depression Family History FAMILY HISTORY: Positive Family Cardiac Disorders Surgical History SURGICAL: Positive Eye Surgery Social History SMOKING STATUS: Never smoker SUBSTANCE USE: does not use ED Exam Narrative Physical exam: GENERAL APPEARANCE: alert and oriented x 4, well-developed, well-nourished, [id number] tachycardic VITALS: All vitals were reviewed and the pulse ox is % on room air, which is normal according to my interpretation. HEENT: Normocephalic, atraumatic; pupils equal, round, reactive to light; EOMI; mucous membranes pink, moist; oropharynx clear NECK: Supple, no JVD LUNGS: CTABL; no wheezes, no rales, no rhonchi HEART: Mildly tachycardic, regular rhythm; normal S1, S2; no murmurs ABDOMEN: non distended; normal BS; soft, no tenderness, no guarding, no rebound; no masses, no organomegaly, no hernia BACK: no CVA tenderness EXTREMITIES: atraumatic; no edema, no palpable calf tenderness NEUROLOGIC: awake; alert and oriented x4; cranial nerves II-XII grossly intact; no focal sensory or motor deficits PSYCHIATRIC: anxious mood and affect SKIN: warm, dry, normal color; no rashes Course Course Course Narrative: CXR is ordered for determining the etiology of chest pain. Quality Measures none Orders Category Date Time Status EKG (ED ONLY) *Do not use* NOW Care 03/30/25 01:26 Completed EKG (ED Only) Stat Exams 03/30/25 01:25 Draft XR chest 1V portable Stat Exams 03/30/25 01:25 Completed B-Type Natriuretic Peptide Stat Lab 03/30/25 01:36 Completed CBC Stat Lab 03/30/25 01:36 Completed Comprehensive Metabolic Panel Stat Lab 03/30/25 01:36 Completed D-Dimer Stat Lab 03/30/25 01:36 Completed Prothrombin Time with INR Stat Lab 03/30/25 01:36 Completed Troponin I Stat Lab 03/30/25 01:36 Completed Troponin I Stat Lab 03/30/25 04:58 Completed Metoclopramide Inj [Reglan Inj] Med 03/30/25 06:00 Discontinued 5 mg IVP Q8HR Nitroglycerin Oint 2% [Nitro-paste Oint 2%] Med 03/30/25 01:25 Discontinued 0.5 inch TOP X1 ONE Pantoprazole Inj [Protonix Inj] Med 03/30/25 04:50 Discontinued 40 mg IVP X1 ONE Vital Signs Vital signs: Vital Signs Temperature 97.8 F 03/30/25 01:25 Pulse Rate 95 03/30/25 01:25 Respiratory Rate 18 03/30/25 01:25 Blood Pressure 119/76 03/30/25 01:25 Pulse Oximetry (%) 95 03/30/25 01:25 Oxygen Delivery Method Room Air 03/30/25 01:25 Chest Pain MDM Narrative MDM Narrative:: Scribe Attestation: 03/30/25 - Karol Crump am scribing for and in the presence of Dr. Herrera. 84yo female arrives by EMS after having developed sudden high epigastric pain radiating to the lower substernal region, occasionally described as sharp in nature, initially with a pleuritic component and shortness of breath. No V/D, palpitations, lightheadedness, or near syncope. Please see PE findings. CBC and chemistries are unremarkable. Troponin undetected. D-Dimer within normal limits. UA demonstrates proteinuria although without signs of UTI. CXR demonstrates poor inspiratory effort without evidence of pneumothorax, pneumonia, or CHF. There is a stable pulmonary nodule at the right upper lobe. EKG without signs of acute ischemia, pericarditis, or infarction. Suspect possible reflux. Patient treated with PPI and low dose repulsive agent and is currently pending repeat troponin, if unremarkable will discharge back to SNF on PPI for 1 month. Patient data External records reviewed:: [facility] previous records (Per chart review, patient was seen here on 02/08/25 for palpitations.) and EMS form Clinical information provided by:: patient Social determinants that could affect healthcare access:: none Patient has the following chronic illnesses:: HTN, HLD How is presenting disease/condition affected by chronic disease/condition?: uneffected by Evaluation data The following diagnostics were reviewed and interpreted by me:: lab results, radiology exam(s) and EKG tracing(s) Lab and/or radiology exams considered but not ordered:: none Interpretation Summary: EKG done at 0224, sinus rhythm, rate of 78, no acute pathological ST segment changes, no ectopy, normal intervals, left axis deviation, according to my interpretation. Medications / Prescriptions Medications or Prescriptions considered but not ordered:: none Medication administrations:: Medication Administration History Discontinued Medications Metoclopramide HCl (Metoclopramide Inj 5 Mg/Ml Vial 2 Ml) 5 mg IVP Q8HR [facility]; Protocol Stop: 04/29/25 05:59 Last Admin: 03/30/25 06:00 Dose: 5 mg Documented By: GEOVANNY Nitroglycerin (Nitroglycerin Oint 2% 1 Inch Packet) 0.5 inch TOP X1 ONE Stop: 03/30/25 01:26 Last Admin: 03/30/25 05:33 Dose: Not Given Documented By: GEOVANNY Non-Admin Reason: Discontinued Pantoprazole Sodium (Pantoprazole Inj 40 Mg Vial) 40 mg IVP X1 ONE Stop: 03/30/25 04:51 Last Admin: 03/30/25 05:59 Dose: 40 mg Documented By: GEOVANNY see above, if any Consultations Consultation(s) initiated? (list below): No Diagnosis Chest Pain Differential Diagnosis: atypical chest pain, st elevation myocardial infarction, chest pain and other (NSTEMI, GERD) Most likely diagnosis given after review of the tests above:: see clinical impression below Admission Indicated Admission indicated?: not indicated Admission Request Was there a request for admission?: No Disposition Plan Disposition Plan: Discharge Discharge Attestation Discharge Attestation: The patient and all family members were given an opportunity to ask questions and understood the discharge instructions. Discharge instructions specifically effects, indications for sooner follow up or return to the emergency department, and the expected course of current diagnosis. Patient condition: Stable Discharge Plan Plan Patient Disposition: Xfer Skilled Nsg Fac (SNF) Prescriptions/Referrals Prescriptions/Med Rec: New pantoprazole [Protonix] 40 mg tablet,delayed release (DR/EC) 40 mg PO QDAY Qty: 30 0RF No Action lovastatin 40 MG tablet 40 mg PO HS Qty: 0 lisinopril 40 MG tablet 40 mg PO QDAY Qty: 0 meclizine 12.5 mg tablet 12.5 mg PO Q12HR PRN (Reason: dizziness) Patient Comments: TAKE 1 TABLET BY MOUTH EVERY 12 HOURS NEEDED sertraline 100 mg tablet 100 mg PO HS levothyroxine 25 mcg tablet 25 mcg PO QAM Patient Comments: TAKE 1 TABLET BY MOUTH EVERY DAY IN THE MORNING ON EMPTY STOMACH FOR 90 DAYS clopidogrel 75 mg tablet 75 mg PO QAM Patient Comments: TAKE 1 TABLET BY MOUTH EVERY DAY loperamide 2 mg capsule 2 mg PO Q6H PRN (Reason: loose stool) Patient Comments: TAKE 1 CAPSULE BY MOUTH FOUR TIMES A DAY NEEDED FOR 10 DAYS metoprolol succinate 25 mg Tablet Extended Release 24 Hr 25 mg PO QDAY Qty: 30 3RF metoprolol succinate 25 mg tablet extended release 24 hr 25 mg PO BID Qty: 60 0RF Referrals: Chepe Wilson MD [Primary Care Provider] - In 1 week Problem List Clinical Impression: Chest pain due to GERD Patient/Caregiver Discharge Instructions Discharge Activity: activity as tolerated Diet Instructions: avoid spicy food / citrus Education Materials: Tips to Control Acid Reflux, ED GERD (Adult) Additional Instructions: Avoid hot and spicy foods, citrus drinks. Medication as directed. Follow-up with primary care doctor for consideration of referral to GI specialist if symptoms persist. Print Language: Chinese Stand Alone Forms: Jaquelin Award Info., Patient Portal Info Letter
[2025-03-30 01:25] VITALS: BP 119/76; PULSE 95; RESP 18; TEMP 36.6; O2SAT 95
--- NOTE | 2025-03-30 01:25 | EKG_ITS ---
[facility] (Formerly [facility]) Test Date: 2025-03-30 Pat Name: AMY TO Department: Room: - Gender: Female Technical Aid: : 1940 Requested By: Celso Franco Order Number: [id number] Reading MD: Celso Franco Measurements Intervals Minter Rate: 78 P: 7 AZ: 177 QRS: 59 QRSD: 82 T: 63 QT: 380 QTc: 433 Interpretive Statements SINUS RHYTHM Compared to ECG 02/08/2025 18:41:49 Intraventricular conduction delay no longer present ST (T wave) deviation no longer present /store/S0/[id number]/ecg/[id number].pdf
--- NOTE | 2025-03-30 01:25 | XR_ITS ---
Examination: AP chest single view. TECHNIQUE: AP portable upright chest single view Date and time: March 30, 2025, 0249 hours, comparison February 08, 2025. INDICATIONS: Chest pain today. FINDINGS: Normal heart size. Ectatic thoracic aorta. Stable calcified granuloma right upper lobe. Accentuation of basilar bronchovascular markings. No lobar pneumonia. Moderate osteopenia. IMPRESSION: Basilar bronchitis pattern.
[2025-03-30 01:52] LABS: Basophils # (Auto) 0.0 Thou/mm3 (0.0-0.2); Basophils % (Auto) 1 % (0-2.5); Eosinophils # (Auto) 0.2 Thou/mm3 (0.0-0.5); Eosinophils % (Auto) 3 % (0-10); Hematocrit 36.3 % (36.0-46.0); Hemoglobin 12.2 g/dL (12.0-16.0); Immature Granulocytes Auto 0.02 Thou/mm3 (0.00-0.00); Lymphocytes # (Auto) 2.8 Thou/mm3 (1.0-4.8); Lymphocytes % (Auto) 48 % (10-50); Mean Corpuscular HGB Conc 33.6 g/dl (31.0-37.0); Mean Corpuscular Hemoglobin 29.3 pg (25.0-35.0); Mean Corpuscular Volume 87 fL (80-100); Monocytes # (Auto) 0.5 Thou/mm3 (0.0-0.8); Monocytes % (Auto) 8 % (0-12); Neutrophils # (Auto) 2.3 Thou/mm3 (1.8-7.7); Neutrophils % (Auto) 40 % (37-80); Nucleated Red Blood Cell # 0.00 Thou/mm3 (0.00-0.00); Nucleated Red Blood Cell % 0 /100 WBC (0); Platelet Count 157 Thou/mm3 (140-440); RDW Standard Deviation 42.8 fL (36.4-46.3); Red Blood Count 4.16 Miln/mm3 (4.00-5.20); White Blood Count 5.8 Thou/mm3 (3.6-11.0)
[2025-03-30 02:07] LABS: INR 1.0 (0.9-1.3); Prothrombin Time 10.7 Seconds (9.0-12.2)
[2025-03-30 02:10] LABS: B-Type Natriuretic Peptide 61 pg/mL (0-100)
[2025-03-30 02:12] VITALS: PULSE 95; RESP 22; O2SAT 97
[2025-03-30 02:12] LABS: Alanine Aminotransferase 19 U/L (10-49); Albumin, Serum 4.2 gm/dL (3.4-4.8); Albumin/Globulin Ratio 1.6 (1.2-2.2); Alkaline Phosphatase 137 U/L (46-116); Anion Gap 10 (7-16); Aspartate Amino Transferase 18 U/L (0-34); BUN/Creatinine Ratio 16 Ratio (12-20); Bilirubin,Total 0.3 mg/dL (0.3-1.2); Blood Urea Nitrogen 22 mg/dL (9-23); Calcium 10.0 mg/dL (8.3-10.6); Calcium (Corrected) 10.0 mg/dL (8.5-10.1); Carbon Dioxide 23.8 mMol/L (20.0-31.0); Chloride 108 mMol/L (98-107); Creatinine (Component) 1.4 mg/dL (0.6-1.3); Globulin 2.7 gm/dL (2.3-3.5); Glucose 118 mg/dL (74-106); Osmolality,Calculated 287 (275-295); Potassium 3.9 mMol/L (3.4-5.1); Sodium 142 mMol/L (136-145); Total Protein 6.9 gm/dL (5.7-8.2); Troponin I < 0.020 ng/mL (0.0-0.045); eGFR 37 See Note
[2025-03-30 02:17] LABS: D-Dimer < 250 ng/mL (<600)
[2025-03-30 03:45] VITALS: BP 135/85; PULSE 69; RESP 21; O2SAT 96
[2025-03-30 05:31] LABS: Troponin I < 0.020 ng/mL (0.0-0.045)
[2025-03-30] MEDS: METOCLOPRAMIDE INJ 5 MG/ML VIAL 2 ML IVP (06:00)
[2025-03-30 06:27] VITALS: BP 142/84; PULSE 78; RESP 18; TEMP 36.5; O2SAT 100
--- NOTE | 2025-03-30 07:15 | PC.NURSE ---
IN TO ASSESS PT. PT RESTING QUIETLY AT THIS TIME. PLAN FOR TRANSPORT BACK TO SNF.
--- NOTE | 2025-03-30 08:00 | PC.NURSE ---
PT ASSISTED TO RESTROOM WITH WHEELCHAIR.
[2025-03-30 08:09] VITALS: BP 156/91; PULSE 76; RESP 18; TEMP 36.5; O2SAT 100
--- NOTE | 2025-03-30 09:31 | PC.NURSE ---
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
[2025-03-30 09:54] VITALS: BP 177/92; PULSE 84; RESP 18; TEMP 36.6; O2SAT 99
== END 2025-03-30 09:55 | disposition skilled nursing facility (03) ==
PROVIDERS: Emergency Provider Emergency Medicine; PCP Family Medicine
DX: K21.9 Gastro-esophageal reflux disease without esophagitis (principal); R07.9 Chest pain, unspecified; R06.02 Shortness of breath; I48.91 Unspecified atrial fibrillation; I25.2 Old myocardial infarction; I10 Essential (primary) hypertension; E78.00 Pure hypercholesterolemia, unspecified; Z79.01 Long term (current) use of anticoagulants
CPT/HCPCS: 36415; 71045; 80053; 83880; 84484; 85025; 85379; 85610; 93005; 96374; 96375; 99283; J2470; J2765

== ENCOUNTER 2025-03-30 11:56 | Emergency (ER) | payer MEDICARE, MEDICAID, SELFPAY ==
[2025-03-30 12:10] VITALS: BP 115/76; PULSE 96; RESP 18; TEMP 37.2; O2SAT 95; BMI 29.2
--- NOTE | 2025-03-30 12:35 | EDNOTE_ITS ---
ED General RME/HPI General Chief complaint: General Adult/Misc Complain Stated complaint: EVAL Time Seen by Provider: 03/30/25 12:57 Arrival date/time: 03/30/25 11:56 Limitations: no limitations RME / HPI RME / HPI narrative: 84 year old female with history of atrial fibrillation, hypertension, iron deficiency anemia presents to the ED [facility] from [facility] for delinquency prevention social worker consultation. Per medics, [place] staff reported the patient was not wanting to return to the facility and was requesting to be transferred to a different facility. Evidently the family are already in the process of changing retirement. In the ED, patient has no complaints. Related Data Home Medications ?Medication ?Instructions ?Recorded ?Confirmed lisinopril 40 mg tablet 40 mg PO QDAY HBP #0 tabs 01/25/25 lovastatin 40 mg tablet 40 mg PO HS CHOLESTEROL #0 t abs 09/08/14 01/25/25 clopidogrel 75 mg tablet 75 mg PO QAM 01/25/25 levothyroxine 25 mcg tablet 25 mcg PO QAM 01/25/25 loperamide 2 mg capsule 2 mg PO Q6H PRN loose stool 01/25/25 01/25/25 meclizine 12.5 mg tablet 12.5 mg PO Q12HR PRN dizzine ss 01/25/25 01/25/25 sertraline 100 mg tablet 100 mg PO HS depression 01/0401/25/25 Previous Rx's ?Medication ?Instructions ?Recorded metoprolol succinate 25 mg 25 mg PO QDAY #30 tabs 01/04 12/27 tablet,extended release 24 hr metoprolol succinate 25 mg 25 mg PO BID #60 tabs 02/08 tablet,extended release 24 hr pantoprazole 40 mg tablet,delayed 40 mg PO QDAY #30 ta bs 03/30/25 release (Protonix) Allergies Allergy/AdvReac Type Severity Reaction Status Date / Time No Known Allergies Allergy Verified 02/08/25 18:30 Review of Systems Review of Systems Systems Reviewed: All systems reviewed, normal except as documented Past Medical History Past Medical History NEUROLOGIC: Positive Neurological Disorders and Cerebrovascular Accident CARDIAC: Positive Cardiac Disorders, Atrial Fibrillation, Hypercholesterolemia and Hypertension; Negative Congestive Heart Failure RESPIRATORY: Negative Chronic Obstructive Pulmonary Disease (COPD) GASTROINTESTINAL: Negative Gastrointestinal Disorders or Gastroesophageal Reflux Disease GENITOURINARY: Negative Genitourinary Disorders or Renal Disease MUSCULOSKELETAL: Negative Musculoskeletal Disorders ENT: Positive Blind ENDOCRINE: Negative Endocrine Disorders, Diabetes Mellitus Type 1 or Diabetes Mellitus Type 2 PSYCHO/SOCIAL: Positive Recreational Drug Use and Depression Family History FAMILY HISTORY: Positive Family Cardiac Disorders Surgical History SURGICAL: Positive Eye Surgery Social History SMOKING STATUS: Never smoker SUBSTANCE USE: does not use ED Exam General Limitations: Present no limitations General appearance: Present alert and in no apparent distress Head Head exam: Present atraumatic and normocephalic Eye Eye exam: Present PERRL, EOMI and other (chronically missing right eye) ENT ENT exam: Present normal exam, normal oropharynx and mucous membranes moist Neck Neck exam: Present normal inspection, full ROM and trachea midline Chest Chest inspection: Present normal inspection and symmetric chest wall rise Respiratory Respiratory exam: Present normal lung sounds bilaterally Cardiovascular Cardiovascular exam: Present regular rate, normal rhythm and normal heart sounds Abdominal Exam Abdominal exam: Present soft and normal bowel sounds Extremities Exam Extremities exam: Present normal inspection and full ROM Back Exam Back exam: Present normal inspection and full ROM Neurological Exam Neurological exam: Present alert (mild dementia ) and CN II-XII intact Psychiatric Psychiatric exam: Present normal affect and normal mood Skin Skin exam: Present warm, dry, intact and normal color Course Quality Measures none Orders Category Date Time Status Referral Physical Therapy Stat Cons 03/30/25 17:47 Completed Diet Regular Diet 03/30/25 Dinner Active UA [Urinalysis] Stat Lab 03/30/25 17:56 Completed Urine Culture Stat Lab 03/30/25 17:56 Received Albuterol/Ipratr Rt Mariely [Duoneb Rt Mariely] Med 03/30/25 21:11 Discontinued 3 ml INH X1 ONE Diazepam Inj [Valium Inj] Med 03/30/25 22:08 Discontinued 10 mg IM X1 ONE Diazepam Inj [Valium Inj] Med 03/30/25 21:49 Discontinued 10 mg IVP X1 ONE Diazepam [Valium] Med 03/30/25 21:11 Discontinued 2 mg PO X1 ONE Vital Signs Vital signs: Vital Signs Temperature 98.9 F 03/30/25 12:10 Pulse Rate 96 03/30/25 12:10 Respiratory Rate 18 03/30/25 12:10 Blood Pressure 115/76 03/30/25 12:10 Pulse Oximetry (%) 95 03/30/25 12:10 Oxygen Delivery Method Room Air 03/30/25 12:10 Discharge Plan Plan Patient Disposition: Xfer Skilled Nsg Fac (SNF) Prescriptions/Referrals Prescriptions/Med Rec: No Action lovastatin 40 MG tablet 40 mg PO HS Qty: 0 lisinopril 40 MG tablet 40 mg PO QDAY Qty: 0 meclizine 12.5 mg tablet 12.5 mg PO Q12HR PRN (Reason: dizziness) Patient Comments: TAKE 1 TABLET BY MOUTH EVERY 12 HOURS NEEDED sertraline 100 mg tablet 100 mg PO HS levothyroxine 25 mcg tablet 25 mcg PO QAM Patient Comments: TAKE 1 TABLET BY MOUTH EVERY DAY IN THE MORNING ON EMPTY STOMACH FOR 90 DAYS clopidogrel 75 mg tablet 75 mg PO QAM Patient Comments: TAKE 1 TABLET BY MOUTH EVERY DAY loperamide 2 mg capsule 2 mg PO Q6H PRN (Reason: loose stool) Patient Comments: TAKE 1 CAPSULE BY MOUTH FOUR TIMES A DAY NEEDED FOR 10 DAYS metoprolol succinate 25 mg Tablet Extended Release 24 Hr 25 mg PO QDAY Qty: 30 3RF pantoprazole [Protonix] 40 mg tablet,delayed release (DR/EC) 40 mg PO QDAY Qty: 30 0RF metoprolol succinate 25 mg tablet extended release 24 hr 25 mg PO BID Qty: 60 0RF Referrals: Chepe Wilson MD [Primary Care Provider] - In 1 week Problem List Clinical Impression: Weakness Patient/Caregiver Discharge Instructions Education Materials: ED Weakness (Uncertain Cause) Additional Instructions: Please follow-up with your primary care doctor within 1 to 2 days return immediately if you have worsening symptoms or new symptoms of concern. Print Language: Hong Konger Stand Alone Forms: Jaquelin Award Info., Patient Portal Info Letter [facility] Narrative Sign out note: 1800: Patient signed out to Dr. Barrios pending SNF placement. [facility] hospital course: IDianelys am scribing for and in the presence of Dr. Bruce. Clinical Information Provided by patient and EMS Medical Records Reviewed [facility], EMS and prison Meds/Rx Considered, not Ordered None Labs/Rad/Tests considered, not Ordered None Chronic Illness/Social Conditions which may negatively complicate care or outcome(s)-explain: prison/debilitated EKG EKG not done Lab Interpretation Labs: see narrative above Imaging Imaging interpretation: see narrative above Medication Administration(s) none Medication Administration History Discontinued Medications Albuterol/Ipratropium (Albuterol/Ipratropium (Duoneb) Rt Mariely 3 Ml Nebu) 3 ml INH X1 ONE Stop: 03/30/25 21:12 Last Admin: 03/30/25 21:31 Dose: 3 ml Documented By: KRISSY Diazepam (Diazepam 5 Mg Tablet) 2 mg PO X1 ONE Stop: 03/30/25 21:12 Last Admin: 03/30/25 21:48 Dose: Not Given Documented By: LEE Non-Admin Reason: Patient Refused Diazepam (Diazepam Inj 5 Mg/Ml Vial 2 Ml) 10 mg IVP X1 ONE Stop: 03/30/25 21:50 Last Admin: 03/30/25 22:36 Dose: Not Given Documented By: LEE Non-Admin Reason: Cancelled by Provider Diazepam (Diazepam Inj 5 Mg/Ml Vial 2 Ml) 10 mg IM X1 ONE Stop: 03/30/25 22:09 Last Admin: 03/30/25 22:35 Dose: 10 mg Documented By: LEE Dispositon Disposition: other (Signed out to Dr. Barrios )
--- NOTE | 2025-03-30 12:45 | PC.NURSE ---
PATIENT BROUGHT IN BY EMS FOR BEHAVIORS PER FACILITY. PT WAS JUST RELEASED FROM THE ED. PRIOR TO LEAVING ED SHE STATED SHE DIDN'T WANT TO GO BACK TO FACILITY THAT SHE WANTS TO GO AND LIVE WITH HER AUNT. I INFORMED PT THAT SHE WILL NEED TO GO BACK TO FACILITY AND PROPERLY DISCHARGE HERSELF FROM THERE WITH ARRANGEMENTS TO STAY WITH FAMILY. PT AGREED AND WAS DISCHARGED BACK TO FACILITY. PER STAFF AT FACILITY PT WAS ATTEMPTING TO LEAVE AND THEY HAD TO HOLD HER DOWN TO PREVENT HER FROM LEAVING AND CALLED EMS TO BRING HER BACK TO US DUE TO COMBATIVE BEHAVIOR. PT CALM AND COOPERATIVE WITH US.
--- NOTE | 2025-03-30 17:50 | PC.NURSE ---
PT AMBULATED TO RESTROOM WITH LITTLE ASSISTANCE. UA COLLECTED. PT EVAL ORDERED FOR PLACEMENT
[2025-03-30 18:21] LABS: Collection Type, Urine Clean Catch
[2025-03-30 18:31] LABS: Bilirubin,Urine Negative (Negative); Blood,Urine Negative (Negative); Clarity,Urine Clear (Clear/Hazy); Color,Urine Yellow (Lt Yel-Yel); Glucose, Urine Negative (Negative); Ketones,Urine Negative (Negative); Leukocyte Esterase,Urine Positive (Negative); Nitrite,Urine Negative (Negative); PH,Urine 6.0 (5.0-7.0); Protein,Urine Trace (Neg - Trace); RBC,Urine 2 /hpf (0-3); Specific Gravity,Urine 1.025 (1.001-1.035); Squamous Epithelial Cell,Urine 3 /hpf (0-5); Urobilinogen,Urine Negative mg/dL (0.0-1.0); WBC,Urine 6 /hpf (0-5)
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
--- NOTE | 2025-03-30 18:47 | PD.EDADDENDU ---
Emergency Room Addendum Addendum Narrative: 1800: Care assumed from Dr. Bruce, the previous shift emergency physician. Past medical, surgical, social and family history reviewed. Vitals and home medications reviewed. Results and treatment plan discussed. I will assume the care of the patient at this time and will follow the patient, pending PT evaluation and SNF placement. Please refer to the emergency department record for history and examination from initial visit. Patient remained stable throughout the night. 0600: Care signed out to Dr. Bruce (emergency physician). Past medical, surgical, social and family history reviewed. Vitals and home medications reviewed. Results and treatment plan discussed. They will assume the care of the patient at this time and will follow the patient, pending PT evaluation and SNF placement.
[2025-03-30] MEDS: ALBUTEROL/IPRATROPIUM (Duoneb) RT SOL 3 ML NEBU INH (21:31)
[2025-03-30 21:32] VITALS: PULSE 87; RESP 20; O2SAT 99
[2025-03-30] MEDS: DIAZEPAM INJ 5 MG/ML VIAL 2 ML 10 MG IM (22:35)
[2025-03-31 05:20] VITALS: BP 132/60; PULSE 71; RESP 14; TEMP 36.6; O2SAT 95
--- NOTE | 2025-03-31 08:30 | PC.NURSE ---
BREAKFAST TRAY WAS PROVIDED.
--- NOTE | 2025-03-31 08:58 | PC.NURSE ---
PHYSICAL THERAPIST AT BEDSIDE FOR EVAL.
--- NOTE | 2025-03-31 09:21 | PC.PT ---
PT eval completed. Pls see PT eval notes.
--- NOTE | 2025-03-31 09:23 | PC.SS ---
Addendum entered by Lisa Moe 03/31/25 15:50: SS follow up note; SS contacted Esperanza from [facility] [phone]. SS informed her that patient was going to have more imaging done. Esperanza informed SS that patient is able to discharge to their facility tomorrow. SS was also informed by Charge nurse, Neri that patient is refusing test. SS will contact patient's grand daughter, Shubham to update her. SS will stand by for further needs. Addendum entered by MIRTHA Brennan 03/31/25 15:36: [facility] placed phone call to EDUCATIONAL DIRECTOR to receive update on patient. EDUCATIONAL DIRECTOR informed staff that patient is refusing to return to [facility] and SS submitted referral to other SNF. Addendum entered by MIRTHA Brennan 03/31/25 15:00: SS follow up note: Patient refused to leave ED, refused transportation with [facility], SS made contact with patients grand daughter via phone call, patients grand daughter spoke to patient over the phone but patient is refusing to leave hospital stating she has things to do in [place] before she goes to SNF and stated she does not trust anyone. Patient stated that they only way she will leave is if she is transported to the police station. Patient is uncooperative with staff and is refusing to speak to staff at [facility] and . Doctors will run more test before d/c, grand daughter made aware that once patient is medically clear she would need to be d/c. Patients granddaughter would like SS to attempt to transport patient again once she receives medical clearance. EDUCATIONAL DIRECTOR cancelled [facility] transportation due to patient refusing. Addendum entered by Lisa Moe 03/31/25 12:19: SS follow up note; SS set up transportation with [facility] for 1410. SS updated patient's Nurse Nancy as well as patient's granddaughter, Shubham and Esperanza from [facility]. Addendum entered by Lisa Moe 03/31/25 11:32: SS follow up note; SS set up transportation through [facility], reference # [id number]. SS will update patient's nurse Nancy. Addendum entered by Lisa Moe 03/31/25 10:53: SS follow up note; SS contacted Esperanza from [facility] to check status on acceptance. Esperanza informed SS they are able to accept patient. SS contacted patient's grand daughter, Kavitha to update her that patient will be discharging today. SS provided patient's grand daughter SNF contact information. SS will set up transportation through [facility]. Addendum entered by Lisa Moe 03/31/25 10:16: SS follow up note; SS contacted Ondina from [facility] and she informed SS she will discuss patient's case with her DON and would contact SS. Addendum entered by Lisa Moe 03/31/25 10:00: SS follow up note; [facility], however [facility] would like to evaluate patient at bedside. SS will also follow up with Esperanza in [facility]. Original Note: SS follow up note; SS contacted patient's grand daughter, Shubham Alcantara to discuss the potential placement of the patient. SS informed patient's grand daughter that SS would try to place the patient near her, however it might be a difficult placement. SS also informed Shubham that SS would be expanding the search to other facilities. Shubham verbalized understanding and is agreeable. SS contacted [facility] [phone] and spoke to Esperanza in admissions, who stated they didn't have the requested care available. SS then sent patient's clinicals via fax. Esperanza informed SS she would review and contact SS with response. SS will continue to find placement for patient.
--- NOTE | 2025-03-31 12:28 | PD.EDADDENDU ---
Emergency Room Addendum Addendum Narrative: Patient is an 84-year-old female that is in the emergency department after declining transport to her intermediate facility. Patient was GCS 14 which was her baseline, family was contacted throughout the evening, a intermediate home close to the patient's family was obtained for acceptance. Patient was to be transported to the facility had been hemodynamically stable calm, and at her baseline neurologic functioning and then when EMS arrived she became upset, was telling the paramedics to take her to the police station, would not say why. Then was requesting to be taken for errands to be run before she was taken to the intermediate facility. We let her know that the paramedics are not able to do that and then patient became upset. Patient started repetitively saying things. Despite social work, and nursing staff working with the patient all day and letting her know the plan, upon transport patient appears . Given concern that patient is not at her baseline, ordered altered mental status workup including CT brain labs and urinalysis. Patient is declining her workup. In my assessment of the patient, patient is GCS 14, although she has periods of lucidity where she is alert and oriented, at times makes erratic and paranoid statements and exhibits confusion. Patient does not have capacity in my opinion to make her own opinions given these episodes of confusion. Patient signed out to oncoming provider. Patient has a sitter at bedside. Patient is pending social work consult and safe dispo.
--- NOTE | 2025-03-31 14:33 | PC.NURSE ---
EMS HERE TO AMMONIA OPERATOR PT. PT NOT WANTING TO LEAVE AT THIS TIME. STATES SHE NEED TO TAKE CARE OF A FEW THINGS BEFORE SHE GOES. PT INFORMED THAT WE HAVE BEEN WORKING ON THIS SINCE YESTERDAY AND GOT HER ACCEPTED CLOSE TO HER GRANDDAUGHTER REQUESTED. PT REFUSING TO LEAVE STILL. GRANDDAUGHTER CONTACTED BY MONEY ORDER CLERK MARY AT THIS TIME.
--- NOTE | 2025-03-31 14:34 | XR_ITS ---
Examination: CT brain head without contrast. 2-D sagittal coronal reconstructions Date and time of exam:March 31, 2025, 1826 hrs. Comparison: June 15, 2023 Indications: Altered mental status today CTDI: vol (mGy):47.1 DLP: (mGycm):977 Technique: Multiple CT axial sections of the brain have been obtained, 5 mm slice thickness. Contrast has not been administered. 2-D sagittal, coronal reconstructions have been obtained Low dose protocols were performed. One or more of the following dose reduction techniques were used; automated exposure control, adjustment of the mA and/or KV according to patient size, use of iterative reconstruction technique. Findings: No significant ventricular enlargement. Again noted large area of encephalomalacia in right temporal and occipital lobe as well as smaller area of encephalomalacia in the left occipital lobe Intra-axial or extra-axial hemorrhage density is not seen. No mass effect or midline shift Basal cisterns are not remarkable. Fourth ventricle is midline. Cranial vault intact. Impression: No interval acute hemorrhage mass effect or midline shift As clinically warranted, brain MRI follow-up would best assess for acute ischemic change
[2025-03-31 15:00] VITALS: BP 133/77; PULSE 82; RESP 19; TEMP 36.7; O2SAT 98
--- NOTE | 2025-03-31 15:52 | PC.NURSE ---
THIS NURSE WENT TO INTRODUCE MYSELF TO THE PATIENT, PATIENT STATED THAT SHE DID NOT WANT THIS NURSE IN HER ROOM AT THIS TIME. PATIENT REFUSING CT. PATIENT REFUSING MEDICATIONS. PATIENT SEEM TO BE CALM AND COOPERATIVE WITH BEAD FILLER STAFF. WILL ATTEMPT TO TALK TO PATIENT AGAIN.
--- NOTE | 2025-03-31 16:00 | PC.NURSE ---
DR. THOMPSON MADE AWARE OF PATIENT REFUSING CT, MEDICATIONS, AND SWABS, NO NEW ORDERS RECEIVED.
[2025-03-31 16:14] LABS: Basophils # (Auto) 0.1 Thou/mm3 (0.0-0.2); Basophils % (Auto) 1 % (0-2.5); Eosinophils # (Auto) 0.2 Thou/mm3 (0.0-0.5); Eosinophils % (Auto) 4 % (0-10); Hematocrit 37.9 % (36.0-46.0); Hemoglobin 12.4 g/dL (12.0-16.0); Immature Granulocytes Auto 0.01 Thou/mm3 (0.00-0.00); Lymphocytes # (Auto) 2.1 Thou/mm3 (1.0-4.8); Lymphocytes % (Auto) 40 % (10-50); Mean Corpuscular HGB Conc 32.7 g/dl (31.0-37.0); Mean Corpuscular Hemoglobin 29.0 pg (25.0-35.0); Mean Corpuscular Volume 89 fL (80-100); Monocytes # (Auto) 0.5 Thou/mm3 (0.0-0.8); Monocytes % (Auto) 9 % (0-12); Neutrophils # (Auto) 2.5 Thou/mm3 (1.8-7.7); Neutrophils % (Auto) 47 % (37-80); Nucleated Red Blood Cell # 0.00 Thou/mm3 (0.00-0.00); Nucleated Red Blood Cell % 0 /100 WBC (0); Platelet Count 159 Thou/mm3 (140-440); RDW Standard Deviation 44.7 fL (36.4-46.3); Red Blood Count 4.28 Miln/mm3 (4.00-5.20); White Blood Count 5.3 Thou/mm3 (3.6-11.0)
[2025-03-31 16:41] LABS: Ammonia < 10 uMol/L (11-32); T4 (Thyroxine) 6.0 mcg/dL (4.5-10.9)
[2025-03-31 16:45] LABS: INR 1.0 (0.9-1.3); Prothrombin Time 10.9 Seconds (9.0-12.2)
[2025-03-31 16:47] LABS: Acetaminophen < 2.0 mcg/mL (10.0-20.0); Alanine Aminotransferase 19 U/L (10-49); Albumin, Serum 4.6 gm/dL (3.4-4.8); Albumin/Globulin Ratio 1.7 (1.2-2.2); Alkaline Phosphatase 113 U/L (46-116); Anion Gap 9 (7-16); Aspartate Amino Transferase 22 U/L (0-34); BUN/Creatinine Ratio 17 Ratio (12-20); Bilirubin,Total 0.5 mg/dL (0.3-1.2); Blood Urea Nitrogen 26 mg/dL (9-23); Calcium 10.4 mg/dL (8.3-10.6); Calcium (Corrected) 10.4 mg/dL (8.5-10.1); Carbon Dioxide 26.0 mMol/L (20.0-31.0); Chloride 109 mMol/L (98-107); Creatinine (Component) 1.5 mg/dL (0.6-1.3); Estimated Creatinine Clearance 29.1 mL/min (>60); Globulin 2.7 gm/dL (2.3-3.5); Glucose 117 mg/dL (74-106); Osmolality,Calculated 292 (275-295); Potassium 4.0 mMol/L (3.4-5.1); Salicylate < 3.0 mg/dL; Sodium 144 mMol/L (136-145); Thyroid Stimulating Hormone 2.52 uIU/mL (0.55-4.78); Total Protein 7.3 gm/dL (5.7-8.2); Troponin I < 0.020 ng/mL (0.0-0.045); eGFR 34 See Note
--- NOTE | 2025-03-31 18:05 | PC.NURSE ---
DR. THOMPSON NOTIFIED OF PATIENT'S REFUSAL OF SWABS AT THIS TIME, NO NEW ORDERS RECEIVED.
--- NOTE | 2025-03-31 18:25 | PC.NURSE ---
ASSISTED PATIENT TO RESTROOM WITH STANDBY ASSIST.
--- NOTE | 2025-03-31 18:39 | PD.EDADDENDU ---
Emergency Room Addendum Addendum Narrative: 1800: Care assumed from Dr. Bruce, the previous shift emergency physician. Past medical, surgical, social and family history reviewed. Vitals and home medications reviewed. Results and treatment plan discussed. I will assume the care of the patient at this time and will follow the patient, pending social services analyst consult. Please refer to the emergency department record for history and examination from initial visit. Patient was accepted to a facility in [place], but when EMS came to picker and sorter load and unload the patient, she refused to go. Patient's competency is currently under question and is requiring social services analyst consultation in the morning. Patient remained stable while under my care. 0600: Care signed out to Dr. Villalba (emergency physician). Past medical, surgical, social and family history reviewed. Vitals and home medications reviewed. Results and treatment plan discussed. They will assume the care of the patient at this time and will follow the patient, pending social services analyst consult.
[2025-03-31 18:40] VITALS: BP 147/85; PULSE 78; RESP 19; TEMP 36.6; O2SAT 99
[2025-03-31 18:52] LABS: Collection Type, Urine Catheter
[2025-03-31 19:05] LABS: Bilirubin,Urine Negative (Negative); Blood,Urine Negative (Negative); Clarity,Urine Clear (Clear/Hazy); Color,Urine Yellow (Lt Yel-Yel); Culture Indicated,Urine Not Indicated; Glucose, Urine Negative (Negative); Hyaline Casts,Urine < 1 /hpf (0-1); Ketones,Urine Negative (Negative); Leukocyte Esterase,Urine Positive (Negative); Nitrite,Urine Negative (Negative); PH,Urine 6.0 (5.0-7.0); Protein,Urine Trace (Neg - Trace); RBC,Urine 3 /hpf (0-3); Specific Gravity,Urine 1.027 (1.001-1.035); Squamous Epithelial Cell,Urine 11 /hpf (0-5); Urobilinogen,Urine Negative mg/dL (0.0-1.0); WBC,Urine 5 /hpf (0-5)
[2025-03-31 19:26] LABS: Amphetamine/Methamp Scrn,U Negative (Negative); Barbiturate Screen,Urine Negative (Negative); Benzodiazepines Screen,Urine Positive (Negative); Benzoylecgonine Screen, Ur Negative (Negative); Fentanyl Screen,Urine Negative (Negative); Opiate Screen,Urine Negative (Negative); THC Screen,Urine Negative (Negative)
--- NOTE | 2025-03-31 19:45 | PC.NURSE ---
PATIENT SITTING CALMLY IN BED. CHEST RISE AND FALL NOTED. SITTER AT BEDSIDE.
--- NOTE | 2025-03-31 20:01 | PC.NURSE ---
PATIENT SITTING CALMLY IN BED. CHEST RISE AND FALL NOTED. SITTER AT BEDSIDE.
[2025-03-31 20:37] VITALS: BP 145/109
--- NOTE | 2025-03-31 21:30 | PC.NURSE ---
PATIENT APPEARS ASLEEP. CHEST RISE AND FALL NOTED.
--- NOTE | 2025-03-31 22:31 | PC.NURSE ---
PATIENT APPEARS ASLEEP. CHEST RISE AND FALL NOTED.
--- NOTE | 2025-03-31 23:31 | PC.NURSE ---
PATIENT APPEARS ASLEEP. CHEST RISE AND FALL NOTED.
--- NOTE | 2025-04-01 00:31 | PC.NURSE ---
PATIENT APPEARS ASLEEP. CHEST RISE AND FALL NOTED.
--- NOTE | 2025-04-01 01:09 | PC.NURSE ---
PATIENT APPEARS ASLEEP. CHEST RISE AND FALL NOTED.
--- NOTE | 2025-04-01 02:10 | PC.NURSE ---
PATIENT APPEARS ASLEEP. CHEST RISE AND FALL NOTED.
--- NOTE | 2025-04-01 03:03 | PC.NURSE ---
PATIENT APPEARS ASLEEP. CHEST RISE AND FALL NOTED.
--- NOTE | 2025-04-01 04:30 | PC.NURSE ---
PATIENT APPEARS ASLEEP. CHEST RISE AND FALL NOTED.
--- NOTE | 2025-04-01 05:08 | PC.NURSE ---
PATIENT APPEARS ASLEEP. CHEST RISE AND FALL NOTED.
[2025-04-01 06:39] VITALS: BP 160/84
--- NOTE | 2025-04-01 07:41 | PC.CC ---
Addendum entered by Roxy Raman 04/01/25 08:17: Roxy PETERSON made telephone contact with [facility] to arrange transportation reservation [phone]. Roxy PETERSON made telephone contact with Esperanza [phone] at [facility] to inform her we are waiting for a merchandise pickup/receiving associate time for the patient. Original Note: Roxy PETERSON made face to face contact with patient introduced self, role, and reason for visit. Patient reports she is ready to go and wants safe transportation arranged for her. [employer] explained to patient that [employer] would arrange transportation for her via ambulance. Patient was receptive to information. [employer], to arrange transportation with [facility].
--- NOTE | 2025-04-01 07:49 | PD.EDADDENDU ---
Emergency Room Addendum Addendum Narrative: [address] Barrios. Past medical, surgical, social and family history reviewed. Vitals and home medications reviewed. Results and treatment plan discussed. I will assume the care of the patient at this time and will follow the patient. Patient is awaiting placement and transportation to be sent home. Please refer to the emergency department record for history and examination from initial visit. Patient remained stable while under my care.
--- NOTE | 2025-04-01 10:37 | PC.CC ---
Roxy PETERSON attempted to make telephone contact with patient's granddaughter, Shubham as per patient's request to inform her that patient will be leaving today. Patient's granddaughter did not answer.
--- NOTE | 2025-04-01 10:45 | PC.SS ---
SS follow up note; SS contacted [facility] and they informed SS that ETA was for 12PM. SS will stand by for further needs.
[2025-04-01 11:38] VITALS: BP 148/109
== END 2025-04-01 11:38 | disposition skilled nursing facility (03) ==
PROVIDERS: Emergency Medicine; Emergency Provider Family Medicine; PCP Family Medicine
DX: Z71.89 Other specified counseling (principal); R53.1 Weakness; R41.82 Altered mental status, unspecified; K21.9 Gastro-esophageal reflux disease without esophagitis
CPT/HCPCS: 36415; 70450; 71045; 80053; 80307; 80329; 81001; 82140; 83880; 84436; 84443; 84484; 85025; 85379; 85610; 87086; 93005; 94640; 96372; 96374; 96375; 99283; A9270; J2470; J2765; J3360; G0480

== ENCOUNTER → 2025-07-22 | Outpatient (CLI) | payer MEDICARE, MEDICAID, SELFPAY ==
--- NOTE | 2025-07-22 16:24 | XR_ITS ---
Examination: Right hip AP, lateral, AP pelvis 3 views Technique: Hip AP lateral, AP pelvis, 3 views Exam date and time: July 22, 2025, 1639 hours INDICATION: Right hip pain 10 years. FINDINGS: Severe osteopenia No right hip fracture or dislocation Mild bilateral hip osteoarthritis Bones of the pelvis intact IMPRESSION: Mild bilateral hip osteoarthritis.
--- NOTE | 2025-07-22 16:24 | XR_ITS ---
EXAMINATION: Right femur 2 views TECHNIQUE: AP lateral right femur 2 views Date and time: July 22, 2025, 1645 hours INDICATIONS: Right femur pain beginning 10 years ago FINDINGS: Mild right hip osteoarthritis Shaft of the femur intact Total right knee arthroplasty. Satisfactory alignment IMPRESSION: Mild right hip osteoarthritis
== END | disposition home or self-care (01) ==
PROVIDERS: PCP Family Medicine; Referring Provider Internal Medicine; Visit Provider Internal Medicine
DX: M16.0 Bilateral primary osteoarthritis of hip (principal); M16.11 Unilateral primary osteoarthritis, right hip
CPT/HCPCS: 73502; 73552